=== PATIENT | male | born 1955 | race Caucasian/White ===

== ENCOUNTER → 2020-07-12 14:44 | Outpatient (POV) | payer MEDICARE, BC, SELFPAY | PROVIDERS: Visit Provider Dermatology | DX: Z00.00 Encounter for general adult medical examination without abnormal findings (principal) ==

== ENCOUNTER → 2021-08-07 15:50 | Outpatient (CLI) | payer MEDICARE, OTHER, SELFPAY ==
--- NOTE | 2021-08-07 15:56 | XR_ITS ---
PROCEDURE: XR CERVICAL SPINE 5V CLINICAL INDICATION: Radiculopathy, cervical region COMPARISON: No exams were available for comparison FINDINGS: No fracture or dislocation. No lytic or blastic change. There is normal mineralization. There is degenerative disc disease at C4-C5 C5-C6 and C6-C7. There is 3 mm anterolisthesis of C4 on C5. Mild foraminal narrowing noted on the right at C5-C6 and on the left at C4-C5 C5-C6 and C6-C7. Facet hypertrophic changes are present from C4-C7. No cervical rib. There are small anterior osteophytes the at C4-C5 C6 and C7. Other findings:None. IMPRESSION: Cervical spondylosis as described above with degenerative disc disease and bilateral foraminal narrowing with facet hypertrophic changes Dictated by: Kuldeep Benoit MD 08/07/2021 17:40 Kuldeep Benoit MD in [place] 08/07/2021 17:40
== END ==
PROVIDERS: PCP Family Medicine; Visit Provider Family Medicine
DX: M54.12 Radiculopathy, cervical region (principal)
CPT/HCPCS: 72050

== ENCOUNTER → 2022-05-18 13:28 | Outpatient (CLI) | payer MEDICARE, OTHER, SELFPAY | PROVIDERS: PCP Family Medicine; Visit Provider Family Medicine | DX: U07.1 COVID-19 (principal) | CPT/HCPCS: C9803; U0003; U0005 ==

== ENCOUNTER → 2022-07-17 14:02 | Outpatient (POV) | payer MEDICARE, OTHER, SELFPAY | PROVIDERS: Visit Provider Dermatology | DX: Z00.00 Encounter for general adult medical examination without abnormal findings (principal) ==

== ENCOUNTER 2025-05-14 09:07 | Emergency (ER) | payer MEDICARE, SELFPAY ==
--- OUTSIDE RECORDS SUMMARY | 2024-12-24 05:15 | XMS_ITS ---
Author Organization [facility] Address [address] [place] [id number] Care Team Providers Care Developer [employer] Name Role Phone Elmira Hernandez Primary Care Provider Allergies No Known Allergies Results Component Value [...] 110 Performing Lab: Notes/Report: Test performed by [employer], [facility] , [address], [place] [address] Bruno Milner MD, Clinic Charge Nurse CLIA: [id number] Sodium 134 135-145 mmol/L Potassium 4.6 3.5-5.3 [...] Interpretation:Normal Performing Lab: Notes/Report: Test performed by [employer], [address] , [address], [place] [address] Bruno Milner MD, Clinic Charge Nurse CLIA: [id number] Albumin/Creatinine Ratio, Urine 10 0-30 ug/m g Microalbumin, Urine, Random 1.2 Creatinine, Urine 115.0 Reason For Referral Reason recurring oleconon b ursitis. He would like to see Dr. Reinoso Diagnosis 1 Olecranon bursitis, left (M70.22) [facility] Referring Provider First Name Elmira Aguirre Referring Provider Last Name David Referring Provider Speciality [facility] Referred Provider Sanjuanita Reinoso Referred Provider Specialty Orthopedic S urgery General Notes Anya Driscoll 11:44:12 AM > faxed to [facility] Referral Priority Routine REASON FOR VISIT 6 month check and AWV, Due for Diabetic Eye Exam Medications Medication SIG (Take, Route, Frequency, Duration) Notes Start Date End Date Status Tamsulosin HCl 0.4 mg TAKE ONE CAPSULE B Y MOUTH EVERY DAY AT BEDTIME; Duration: 90 Active Allopurinol 100 MG Take 2 tablets by fl ut once daily; Duration: 90 Active metFORMIN [...] Provider Diagnosis [facility] [address] [facility] [address] [place], [place] [id number] 12/24/2024 Elmira Hernandez Adult general medica l [...] Up: 6 Months, Reason: Provider Name:Elmira Mckeon, 06/24/2025 09:00:00 AM, [address] [facility], [facility] [address] [facility], [address], [place], [place], [id number], Progress Notes * MICHELE BRASHER RENAEDOB:[birth year] (70 yo M)Acc No.[id number]:12/24/2024 Annual Wellness Visit Patient: MICHELE VALDIVIA Provider: Elmira Hernandez M.D. :1955 A ge:69 Y S ex:Male Date:12/24/2024 Address:[address] [place] [address] [address] , [facility]-[id number] Subjective: * Chief Complaints: * 1 . [...] ER for rt knee pain jun.26, [facility]-total right knee replacement 12/04/12. * Family History: [...] bursitis, left - M70.22 1 3. B OR 34.0-34.9,adult - Z68.34 Plan: * Treatment: Value [...] 0439 ANNUAL WELLNESS VST; PPS SUBSQT VST, 10706 GLYCATED HEMOGLOBIN TEST, Modifiers: QW , G0444 ANNUAL DEPRESSION SCREENING 15 MIN, 1090F PRES/ABSN URINE INCON ASSESS, 3288F FALL RISK ASSESSMENT DOCD, 1170F FXNL STATUS ASSESSED, 1159F MED LIST DOCD IN RCRD, 1003F LEVEL OF ACTIVITY ASSESS, 1036F TOBACCO NON-USER, 3017F COLORECTAL CA SCREEN DOC REV, 49598 CBC WITH AUTO DIFF, 1125F AMNT PAIN [...] * Images: Billing Information: * Visit Code: 55198 Office Visit, Est Pt., Level 3. Modifiers: 25 * Procedure Codes: G0439 ANNUAL WELLNESS VST; PPS SUBSQT VST. 34794 GLYCATED HEMOGLOBIN TEST. Modifiers: QW G0444 ANNUAL DEPRESSION SCREENING 15 MIN. 1090F PRES/ABSN URINE INCON ASSESS. 3288F FALL RISK ASSESSMENT DOCD. 1170F FXNL STATUS ASSESSED. 1159F MED LIST DOCD IN RCRD. 1003F LEVEL OF ACTIVITY ASSESS. 1036F TOBACCO NON-USER. 3017F COLORECTAL CA SCREEN DOC REV. 33348 CBC WITH AUTO DIFF. 1125F AMNT PAIN NOTED PAIN PRSNT. G8510 NEG SCR Depression PT NOT ELIG F/U/PLN DOC. 3044F HG A1C LEVEL LT 7.0%. G8752 MOST RECENT SYSTOLIC BP < 140MM HG. G8754 MOST RECENT DIASTOLIC BP < 90MM HG. * Electronic signature of Elmira Hernandez MD on 05/14/2025 at 09:15 AM EDT Sign off status: Pending * Provider: Elmira Hernandez M.D. Date: 0 12/24/2024 Generated for Cynthia crouch/Alejandra/Miah on: 0 05/14/2025 09:15 AM EDT History and Physical Notes * HPI (History [...]
--- OUTSIDE RECORDS SUMMARY | 2025-03-17 06:45 | XMS_ITS ---
Author Organization [facility] Address [address] [place] [id number] Care Team Providers Care Ultrasound Technol Name Role Phone Elmira Hernandez Primary Care Provider Marce Temo Unavailable [phone] Allergies No Known Allergies Results Component Value [...] Allopurinol 100 MG Take 2 tablets by [facility] once daily; Duration: 90 Active Zithromax Z-Raz [...] 03/17/2025 Encounters Encounter Location Date Provider Diagnosis [facility] [address] [place], [place] [id number] 03/17/2025 [facility] [place] Acute URI J06.9 ; Ty pe 2 [...] repo rt progress, Reason: Provider Name:Elmira Mckeon, 06/24/2025 09:00:00 AM, [address] [facility] 36 [facility], [address], [place], [place], [id number], Progress Notes * MICHELE BRASHER TOMDOB:[birth year] (70 yo M)Acc No.[id number]:03/17/2025 Progress Notes Patient: MICHELE VALDIVIA Provider: Juve Zheng M.D. :1955 A ge:70 Y S ex:Male Date:03/17/2025 Address:[address] [place] [address], [facility], [id number] Pcp:Elmira Hernandez Subjective: * Chief Complaints: * [...] ER for rt knee pain 06/2009, [facility]-total right knee replacement 12/04/2012. * Family History: [...] specified complication - E11.69 3 . B [place] 34.0-34.9,adult - Z68.34 Plan: * Treatment: Value [...] G 2211 Complex e/[place], [address] CBC WITH AUTO DIFF, 13795 CAPILLARY BLOOD DRAW, G8752 MOST RECENT SYSTOLIC BP < 140MM HG, G8754 MOST RECENT DIASTOLIC BP < 90MM HG * Follow Up: v ia phone to report progress * Images: Billing Information: * Visit Code: 64940 Office Visit, Est Pt., Level 3. * Procedure Codes: G2211 Complex e/[place]. [address] CBC WITH AUTO DIFF. 18937 CAPILLARY BLOOD DRAW. G8752 MOST RECENT SYSTOLIC BP < 140MM HG. G8754 MOST RECENT DIASTOLIC BP < 90MM HG. * Electronic signature of Jyoti Zheng MD on 05/14/2025 at 09:15 AM EDT Sign off status: Pending * Provider: Juve Zheng M.D. Date: 0 03/17/2025 Generated for Cynthia crouch/Alejandra/Avelinaitting on: 05/14/2025 09:15 AM EDT History and Physical [...]
--- OUTSIDE RECORDS SUMMARY | 2025-04-01 07:30 | XMS_ITS ---
Author Organization [facility] Address [address] [place] [phone] Care Team Providers Care Assignment Editor Name Role Phone Elmira Hernandez Primary Care Provider Marce Temo Unavailable [phone] Allergies No Known Allergies Results Component Value [...] health services once daily; Duration: 90 Active Crestor 10 [...] 04/01/2025 Encounters Encounter Location Date Provider Diagnosis [facility] [address] [place], [place] [phone] 04/01/2025 Temo Zheng Acute rhiniti s J00 [...] Provider Name:Elmira Mckeon, 06/24/2025 09:00:00 AM, [address] [facility] [address], [place], [place], [phone], Progress Notes * MICHELE BRASHERDOB:[birth year] (70 yo M)Acc No.[id number]:04/01/2025 Progress Notes Patient: MICHELE VALDIVIA Provider: Juve Zheng M.D. :1955 A ge:70 Y S ex:Male Date:04/01/2025 Address:[address], [facility] [id number] Pcp:Elmira Hernandez Subjective: * Chief Complaints: * [...] ER for rt knee pain 06/2009, [facility]-total right knee replacement 12/04/2012. * Family History: [...] patient in office. * Procedure Codes: G 2212 Complex e/[place], [address] CAPILLARY BLOOD DRAW, 99234 CBC WITH AUTO DIFF * Follow Up: v ia phone to report progress * Images: Billing Information: * Visit Code: 58951 Office Visit, Est Pt., Level 3. * Procedure Codes: G2211 Complex e/[place]. [address] CAPILLARY BLOOD DRAW. 75416 CBC WITH AUTO DIFF. * Electronic signature of Jyoti Zheng MD on 05/14/2025 at 09:15 AM EDT Sign off status: Pending * Provider: Juve Zheng M.D. Date: 0 04/01/2025 Generated for Cynthia crouch/Alejandra/eTransmitting on: 0 05/14/2025 09:15 AM EDT History [...]
--- OUTSIDE RECORDS SUMMARY | 2025-05-14 09:15 | XMS_ITS ---
Author Organization Unknown [facility] Start Date Provider Encounter for Check-up [id number] [facility]
--- OUTSIDE RECORDS SUMMARY | 2025-05-14 09:15 | XMS_ITS | Patient Health Record ---
Author Organization [facility] Address [address] [place] [id number] Care Team Providers Care Shoe Cutter Name Role Phone Elmira Hernandez Primary Care Provider [phone] Temo Zheng Unavailable [phone] Allergies No Known Allergies Results Component Value [...] - 38 plat 227 100 - 400 CBC Fingerstick (in house) Reviewed date:03/17/2025 12:29:20 [...] - 38 plat 225 100 - 400 P-Microalbumin/Creatinine, R andom Urine Sample Reviewed date:12/28/2024 02:15:19 PM Interpretation:Normal Performing Lab: Notes/Report: Test performed by [facility] [address] [place] [address] , [address], [place] [address] Bruno Milner MD, Financial Administrative Assistant CLIA: [id number] Albumin/Creatinine Ratio, Urine 10 0-30 ug/m g Microalbumin, Urine, Random 1.2 Creatinine, Urine 115.0 P-Comprehensive Metabolic Pa poly (CMP) Reviewed date:12/28/2024 02:15:19 PM Interpretation:Na 134, cl 96, gluc 110 Performing Lab: Notes/Report: Test performed by [facility] [address] [place] [address] , [address], [place] [address] Bruno Milner MD, Financial Administrative Assistant CLIA: [id number] Sodium 134 135-145 mmol/L Potassium 4.6 3.5-5.3 [...] 0.4 <0.2-1.2 mg/dL A/G Ratio 1.4 1.1-2.5 Glycohemoglobin A1c (in hous e) Reviewed date:12/28/2024 02:15:20 PM Interpretation:6.0% Performing Lab: Notes/Report: 6.0% glycohemoglobin 6.0% 5 - 6.5 % P-Uric Acid Reviewed date:06/25/2024 08:27:03 AM Interpretation:Normal Performing Lab: Notes/Report: Test performed by [facility] [address] [place] [address] , [address], [place] [address] Bruno Milner MD, Financial Administrative Assistant CLIA: [id number] Uric Acid 5.1 3.4-8.0 mg/dL P-PSA Reviewed date:06/25/2024 08:27:02 AM Interpretation:Normal Performing Lab: Notes/Report: Test performed by [facility] [address] [place] [address] Bruno Milner MD, Financial Administrative Assistant CLIA: [id number] PSA 0.28 <4.00 ng/mL Please note this is an ultrasensitive PSA assay with a lower limit of detection of 0.014 ng/mL. This test is performed by the [employer] ECLIA methodology. Values obtained with different assay methods or kits cannot be directly compared. P-Lipid Panel Reviewed date:06/25/2024 08:27:02 AM Interpretation:trigs 236 Performing Lab: Notes/Report: Test performed by [facility] [address] [place] [address], [place] [address] Bruno Milner MD, Financial Administrative Assistant CLIA: [id number] Cholesterol 159 <200 mg/dL Triglycerides 236 <150 [...] Results: 70 Units: mg/dL % Change: -6% P-Comprehensive Metabolic Pa poly (CMP) Reviewed date:06/25/2024 08:27:02 AM Interpretation:Na 134, gluc 125 Performing Lab: Notes/Report: Test performed by [employer], [address] , [address] , [place] [address] Bruno Milner MD, Financial Administrative Assistant CLIA: [id number] Sodium 134 135-145 mmol/L Potassium 4.4 3.5-5.3 [...] <0.2-1.2 mg/dL A/G Ratio 1.4 1.1-2.5 mg/dL Glycohemoglobin A1c (in hous e) Reviewed date:06/25/2024 08:27:03 AM Interpretation:5.8% Performing Lab: Notes/Report: 5.8% glycohemoglobin 5.8% 5 - 6.5 % CBC Fingerstick (in house) Reviewed date:04/01/2025 12:25:18 [...] - 38 plat 263 100 - 400 Medications Medication SIG (Take, Route, Frequency, Duration) Notes Start Date End Date Status Loratadine 10 MG 1 tablet Orally Once a day; Duration: 30 day(s) 04/01/2025 Active Fluticasone Propionate 50 MCG/ACT 1 spray in each nostril Nasally once daily 04/01/2025 Active Esomeprazole Magnesium 40 MG 1 cap(s) orally once a day A ctive Cymbalta 60 MG 1 cap(s) orally once a day Active Tamsulosin HCl 0.4 mg TAKE ONE CAPSULE B Y MOUTH EVERY DAY AT BEDTIME; Duration: 90 Active Viagra 100 MG 1 tab(s) orally [...] by mouth once daily; Duration: 90 Active Allopurinol 100 MG 2 tab(s) orally once daily Active metFORMIN HCl 500 MG 1 tab(s) Orally Two times a day Active HYDROcodone-Acetaminophen 10-325 MG 1 tab(s) orally every 6 hours prn; Duration: 30 day(s) 05/07/2025 Active Allopurinol 100 MG Take 2 tablets by [facility] once daily; Duration: 90 Active Crestor 10 [...] tab(s) orally Two times a day Active Diclofenac Sodium 1 % as directed applie d topically Twice a day prn 08/07/2021 Active Rybelsus 3 MG 1 tab(s) Orally once daily Active metFORMIN HCl 500 MG 1 tab(s) Orally Two times a day; Duration: 90 days Active Immunizations Vaccine Route Administration Date Status Comme nts COVID 19 Moderna Unknown 01/18/2021 Administered COVID 19 Moderna Unknown 02/15/2021 Administered COVID 19 Moderna Unknown 10/17/2021 Administered Fluzone High Dose (65yr and older) Unknown 08/07/2021 Administered Fluzone Quad (6months&older) IM Intramuscular 09/23/2018 Administered Fluzone Quad (6months&older) IM Intramuscular 09/06/2020 Administered Fluzone Quad-Medicare (6months&older) IM Intramuscular 10/23/2017 Administered Hepatitis A (adult) Unknown 12/10/2019 Administered PNEUMOVAX 23 VACCINE IM Intramuscular 01/10/2018 Administe red Prevnar (PCV13) IM Intramuscular 12/26/2021 Administered Shingrix Unknown 12/10/2019 Administered Tetanus Tdap-Adacel (over 7yrs) IM Intramuscular 01/10/2018 Administered Problems Problem Type SNOMED Code ICD Code Onset Dates Problem Status W/U Status Risk Notes Problem Gastroesophageal reflux disease (087368560) GERD (gastroesophageal reflux disease) (K21.9) Active confirmed Problem Essential hypertension (42340388) Essential (primary) hypertension (I10) Active confirmed Problem Essential hypertension (24479490) Essential hypertension (I10) Active confirmed Problem Screening for malignant neoplasm of prostate (970433536) Prostate cancer screening (Z12.5) Active confirmed Problem Hyperuricemia (32781090) Hyperuricemia (E79.0) Active confirmed Problem Cervicalgia (00602353) Cervicalgia (M54.2) Active confirmed Problem Male erectile disorder (736288580) Male erectile disorder (F52.21) Active confirmed Problem Benign prostatic hyperplasia (873051208) BPH (benign prostatic hyperplasia) (N40.0) Active confirmed Problem Type 2 diabetes mellitus with other specified complication (E11.69) Active confirmed Problem Hyperlipidemia (17011291) Hyperlipidemia, unspecified (E78.5) Active confirmed Problem Chronic pain syndrome (169518601) Chronic pain syndrome (G89.4) Active confirmed Problem Depression (216861126) Depression (F32.9) Active confirmed Problem Obese class II (096275206387235) BMI 36.0-36.9,adult (Z68.36) Active confirmed Problem Primary osteoarthritis (972405748) Primary osteoarthritis (M19.91) Active confirmed Problem Body mass index 30.00 to 34.99 (796395198368571) BMI 34.0-34.9,adult (Z68.34) Active confirmed Problem Dyslipidemia (704045751) Dyslipidemia (E78.5) Active confirmed Problem Type II diabetes mellitus without complication (156732460) Type 2 diabetes mellitus without complication, without long-term current use of insulin (E11.9) Active confirmed Vital Signs Heart Rate 87 /min 04/01/2025 Blood pressure diastolic 90 mm Hg 04/01/2025 Height 72 in 04/01/2025 Blood pressure systolic 130 mm Hg 04/01/2025 Weight 249.4 lbs 04/01/2025 BMI 33.82 kg/m2 04/01/2025 Encounters Encounter Location Date Provider Diagnosis [facility] [address] [id number] 06/23/2024 Elmira Hernandez Hyperuricemia E79.0 ; Type 2 diabetes mellitus without complication, without long-term current use of insulin E11.9 ; Chronic pain syndrome G89.4 ; Depression F32.9 ; Dyslipidemia E78.5 ; Essential hypertension I10 ; GERD (gastroesophageal reflux disease) K21.9 ; Cervicalgia M54.2 ; Prostate cancer screening Z12.5 ; Skin cancer screening Z12.83 and BPH (benign prostatic hyperplasia) N40.0 [facility] [address] [place] [id number] 10/27/2024 R Timothy Hernandez Olecranon bursitis o f left elbow M70.22 ; Cervicalgia M54.2 and Vasovagal syncope R55 [facility] [address] [facility] [address] [place], [place] [id number] 12/10/2024 R Timothy David Olecranon bursitis o f left elbow M70.22 [facility] [address] [facility] [address] [place], [place] [id number] 12/24/2024 R Timothy David Adult general medica l examination Z00.00 ; [...] bursitis, left M70.22 and BMI 34.0-34.9,adult Z68.34 [facility] [address] [place], [place] [id number] 03/17/2025 [place] Acute URI J06.9 ; Ty pe 2 diabetes mellitus with other specified complication E11.69 and BMI 34.0-34.9,adult Z68.34 [facility] [address] [facility] [address] [place], [place] [id number] 04/01/2025 [place]o [place] Acute rhinitis J00 [facility] [address] [facility] [address] [place], [place] [id number] 05/27/2024 R Timothy David Chronic pain syndrom e G89.4 [facility] [address] [facility] [address] [place], [place] [id number] 06/25/2024 R Timothy David [facility] [address] [facility] [address] [place], [place] [id number] 06/29/2024 R Timothy David Chronic pain syndrom e G89.4 [facility] [address] [facility] [address] [place], [place] [id number] 07/02/2024 R Timothy David [facility] [address] [place], [place] [id number] 07/30/2024 R Timothy David Chronic pain syndrom e G89.4 [facility] [address] [place], [place] [id number] 08/31/2024 R Timothy David Chronic pain syndrom e G89.4 [facility] [address] [place], [place] [id number] 10/01/2024 R Timothy David Chronic pain syndrom e G89.4 [facility] [address] [place], [place] [id number] 11/02/2024 R Timothy David Chronic pain syndrom e G89.4 [facility] [address] [place], [place] [id number] 12/01/2024 R Timothy David Type 2 diabetes mellitus without complication, without long-term current use of insulin E11.9 [facility] [address] [place], [place] [id number] 12/03/2024 R Timothy David Chronic pain syndrom e G89.4 [facility] [address] [place], [place] [id number] 12/28/2024 R Timothy David [facility] [address] [place], [place] [id number] 01/04/2025 [place] Chronic pain syndrom e G89.4 [facility] [address] [place], [place] [id number] 02/01/2025 R Timothy David Chronic pain syndrom e G89.4 [facility] [address] [place], [place] [id number] 03/08/2025 R Timothy David Chronic pain syndrom e G89.4 [facility] [address] [place], [place] [id number] 04/07/2025 R Timothy David Chronic pain syndrom e G89.4 [facility] [address] [place], [place] [id number] 05/07/2025 Elmira Hernandez Chronic pain syndrom e G89.4 Assessments Encounter Date Diagnosis (ICD Code) Assessment Notes Treatment Notes Treatment Clinical Notes Section Notes 05/27/2024 Chronic pain syndrome (ICD-10 - G89.4) 06/23/2024 Hyperuricemia (ICD-10 - E79.0) 06/29/2024 Chronic pain syndrome (ICD-10 - G89.4) 07/30/2024 Chronic pain syndrome (ICD-10 - G89.4) 08/31/2024 Chronic pain syndrome (ICD-10 - G89.4) 10/01/2024 Chronic pain syndrome (ICD-10 - G89.4) 10/27/2024 Cervicalgia (ICD-10 - M54.2) 10/27/2024 Olecranon bursitis of left elbow (ICD-10 [...] for the next 5 to 7 days. 11/02/2024 Chronic pain syndrome (ICD-10 - G89.4) 12/01/2024 Type 2 diabetes mellitus without complication, without long-term current use of insulin (ICD-10 - E11.9) 12/03/2024 Chronic pain syndrome (ICD-10 - G89.4) 12/10/2024 Olecranon bursitis of left elbow (ICD-10 [...] and apply ice 3-4 times per day. 12/24/2024 Dyslipidemia (ICD-10 - E78.5) 12/24/2024 Adult general medical examination (ICD-10 - Z00.00) Patient instructed to return to office Annually for Annual Wellness Visits to include annual screenings of Pain assessment, Functional Ability assessment, Cognitive Ability assessment, Fall Risk assessment, Depression screening and Bladder control screening. 01/04/2025 Chronic pain syndrome (ICD-10 - G89.4) 02/01/2025 Chronic pain syndrome (ICD-10 - G89.4) 03/08/2025 Chronic pain syndrome (ICD-10 - G89.4) 03/17/2025 Type 2 diabetes mellitus with other specified complication (ICD-10 - E11.69) 03/17/2025 Acute URI (ICD-10 - J06.9) 04/01/2025 Acute rhinitis (ICD-10 - J00) 04/07/2025 Chronic pain syndrome (ICD-10 - G89.4) 05/07/2025 Chronic pain syndrome (ICD-10 - G89.4) 03/17/2025 BMI 34.0-34.9,adult (ICD-10 - Z68.34) 12/24/2024 Essential hypertension (ICD-10 - I10) 06/23/2024 Type 2 diabetes mellitus without complication, without long-term current use of insulin (ICD-10 - E11.9) Reinforced diet and weight loss 10/27/2024 Vasovagal syncope (ICD-10 - R55) Following the office procedure, he had a brief syncopal episode and became clammy. He was eventually moved and reclined on the exam table for period of time with application of cool rags. His was called to drive him home. 06/23/2024 Chronic pain syndrome (ICD-10 - G89.4) 06/23/2024 Depression (ICD-10 - F32.9) 12/24/2024 Type 2 diabetes mellitus without complication, without long-term current use of insulin (ICD-10 - E11.9) Reinforced diet and weight loss 12/24/2024 Hyperuricemia (ICD-10 - E79.0) 06/23/2024 Dyslipidemia (ICD-10 - E78.5) 06/23/2024 Essential hypertension (ICD-10 - I10) 12/24/2024 Cervicalgia (ICD-10 - M54.2) 12/24/2024 Chronic pain syndrome (ICD-10 - G89.4) 06/23/2024 GERD (gastroesophageal reflux disease) (ICD-10 - K21.9) 06/23/2024 Cervicalgia (ICD-10 - M54.2) 12/24/2024 Depression (ICD-10 - F32.9) 06/23/2024 Prostate cancer screening (ICD-10 - Z12.5) 12/24/2024 GERD (gastroesophageal reflux disease) (ICD-10 - K21.9) 06/23/2024 Skin cancer screening (ICD-10 - Z12.83) 12/24/2024 BPH (benign prostatic hyperplasia) (ICD-10 - N40.0) 12/24/2024 Nausea (ICD-10 - R11.0) Nausea is likely related to the semaglutide that he started taking. Advised to discontinue this medication until his symptoms are resolved. 06/23/2024 BPH (benign prostatic hyperplasia) (ICD-10 - N40.0) 12/24/2024 Olecranon bursitis, left (ICD-10 - M70.22) 12/24/2024 BMI 34.0-34.9,adult (ICD-10 - Z68.34) Plan Of Treatment Next Appt Details Provider Name:Elmira Mckeon, 06/24/2025 09:00:00 AM, [address], [place], [place], [id number], Insurance Providers Payer Name Payer Address Payer Phone Subscriber Number Group Number Insured Name Patient Relationship to Insured Coverage Start Date Coverage End Date MEDICARE PART B [address] [address] [place] [id number] MICHELE BRASHER Self - patient is the insured [facility] [employer] [address] [place] [address] [phone] [id number] MICHELE BRASHER Self - patient is the insured Medications Administered Medication Instructions Date of Administration Dosage Notes Dexamethasone 01/11/2006 1 mL Medical (General) History Medical History History ICD Code Depression Esophageal Rreflux Hyperlipidemia Gout E.D Diverticulosis by colonoscopy 08/22; 201 4 Hypertension Surgical History Surgery Date(Month/Year) RT Knee x 3 Throat Polyps Removed nasal surgery colonoscopy 2004 total right knee replacement 12/04/2012 Colonoscopy/ sigmoid diverticulosis.one polyp/ Dr. Nick 01/2014 C-scope/ Joseph/ polyps x 2 01/2019 Hospitalization History Reason Date(Month/Year) [facility]-total right knee replace ment 12/04/2012 [facility] ER for rt knee pain 06/2009
--- NOTE | 2025-05-14 09:17 | CT_ITS ---
FINAL REPORT TECHNIQUE: Thin section axial CT with sagittal reconstruction without contrast This study was performed with techniques to keep radiation doses as low as reasonably achievable, (ALARA). Individualized dose reduction techniques using automated exposure control or adjustment of mA and/or kV according to the patient''s size were employed. CLINICAL HISTORY: syncoper trauma vague neck pain COMPARISON: None FINDINGS: There is moderate diffuse degenerative disc disease and spondylosis. Advanced facet arthropathy is noted. Multilevel bony neural foraminal narrowing is present with mild central canal stenosis. There is no evidence of fracture. IMPRESSION: No acute findings. Advanced degenerative changes resulting in multilevel canal stenosis and neural foraminal narrowing. Reviewed, Interpreted and Dictated by Arie Ch MD Transcribed by Jenae Shen Authenticated and . [facility]
--- NOTE | 2025-05-14 09:17 | XR_ITS ---
FINAL REPORT CLINICAL HISTORY: fall, volar pain COMPARISON: None FINDINGS: RIGHT WRIST THREE VIEW FINDINGS: Three views show no evidence of an acute, displaced fracture or dislocation of the visualized bony architecture. The joint spaces appear normal. IMPRESSION: Unremarkable exam. Reviewed, Interpreted and Dictated by Arie Ch MD Transcribed by China Newman Authenticated and [facility]
--- NOTE | 2025-05-14 09:17 | XR_ITS ---
FINAL REPORT TECHNIQUE: Right elbow 3 views CLINICAL HISTORY: fall COMPARISON: None FINDINGS: RIGHT ELBOW: 3 images of the right elbow were obtained. There is irregularity of the coronoid process, considered to be degenerative. No definite fracture is identified. The joint spaces are intact. There is no soft tissue abnormality identified. IMPRESSION: No acute bony abnormality. Reviewed, Interpreted and Dictated by Arie Ch MD Transcribed by China Newman Authenticated and [facility]
--- NOTE | 2025-05-14 09:17 | XR_ITS ---
FINAL REPORT TECHNIQUE: Left elbow 3 views CLINICAL HISTORY: fall COMPARISON: None FINDINGS: LEFT ELBOW: 3 images of the left elbow were obtained. There is a radial neck fracture without displacement. No subluxation or dislocation is identified. Mild degenerative change is noted. There is no soft tissue abnormality identified. IMPRESSION: Nondisplaced left radial neck fracture. Reviewed, Interpreted and Dictated by Arie Ch MD Transcribed by China Newman Authenticated and [facility]
--- NOTE | 2025-05-14 09:17 | XR_ITS ---
FINAL REPORT CLINICAL HISTORY: syncope COMPARISON: None FINDINGS: SINGLE VIEW CHEST: No acute pulmonary opacity is present. There is no evidence of effusion or pneumothorax. Mediastinum is unremarkable. Heart size is normal. IMPRESSION: No acute abnormality. Reviewed, Interpreted and Dictated by Arie Ch MD Transcribed by China Newman Authenticated and . [facility]
--- NOTE | 2025-05-14 09:17 | CT_ITS ---
FINAL REPORT TECHNIQUE: Noncontrast exam This study was performed with techniques to keep radiation doses as low as reasonably achievable, (ALARA). Individualized dose reduction techniques using automated exposure control or adjustment of mA and/or kV according to the patient's size were employed. CLINICAL HISTORY: syncope hit head anterior then posterior COMPARISON: None FINDINGS: CT HEAD: No abnormal density is seen. Ventricles are normal. There is no hemorrhage. No mass effect is seen. Note is made of right maxillary sinusitis. Bone windows show no evidence of fracture. IMPRESSION: 1. No acute intracranial findings. 2. Right maxillary sinusitis. Reviewed, Interpreted and Dictated by Arie Ch MD Transcribed by China Newman Authenticated and [facility]
[2025-05-14 09:18] VITALS: BP 144/103; PULSE 87; RESP 19; TEMP 37.1; O2SAT 98; BMI 32.5
--- NOTE | 2025-05-14 09:20 | HMH.EDGENADL ---
Discharge Plan Disposition Patient Disposition: Home, Self-Care Prescriptions Prescriptions: New hydrocodone-acetaminophen 5-325 mg tablet 1 tab PO BID PRN (Reason: pain (scale score 7-10)) Qty: 10 0RF Rx Instructions: Please take after 800 mg of ibuprofen as needed has not been successful in reducing her pain to an acceptable level. It is okay to combine with your other opiate prescription however spaced the doses out throughout the day. If you have more than 1 pre-existing opiate prescription do not take this medicine on top of it. No Action Clenpiq 10 mg-3.5 gram- 12 gram/175 mL solution 175 ml PO DAILY Qty: 350 0RF Rx Instructions: take first dose at 5-9PM evening before colonoscopy; 2nd dose the next day approximately 5 hrs before colonoscopy metformin 1,000 mg Tablet 1,000 mg PO DAILY lansoprazole [Prevacid] 15 MG capsule,delayed release(DR/EC) 1 tab PO DAILY aspirin 81 MG tablet,chewable 81 mg PO DAILY metaxalone [Skelaxin] 800 MG tablet 1 tab PO DAILY rosuvastatin [Crestor] 5 MG tablet 1 tab PO DAILY Referrals Follow up/Referrals: Doug Reveles DO [Staff Physician, Orthopedics] - See instructions Rios Hernandez MD [Primary Care Provider, Medical] - See instructions Activity Restrictions/Add. Instructions Additional Instructions/Restrictions: At this time it was felt you are safe to be discharged home. If new or worsening symptoms please do not hesitate to return the emergency department. Please wear your sling as much as you are able and take your pain medicines only after Tylenol and ibuprofen have failed. Please call schedule appoint with Dr. Reveles for late next week and follow-up with your family doctor as needed Clinical Impressions Clinical Impression: Closed fracture of neck of left radius, Fall, Neck pain, Syncope, vasovagal Print Language Print Language: Belarusian Discharge ED Provider: Lincoln Jarrett General Adult HPI General Chief complaint: Fall Stated complaint: [id number] Pain and swelling L elbow Time Seen by Provider: 05/14/25 09:09 History of Present Illness HPI narrative: Patient is 70-year-old male with past medical history of diabetes who presents emergency department for evaluation of syncope. Patient was visiting a patient in the hospital when he was on his way down to get breakfast when after coming out of an elevator he felt his right leg tripped on his left leg causing him to fall forward and strike his left elbow with significant pain. He then stood up felt lightheaded and passed out striking his head. No anticoagulants. He is currently complaining of vague neck pain, no headache no chest pain reported no abdominal pain reported. There is left elbow pain, right elbow pain, right wrist pain. No other acute complaints at this time. Please note that above description of symptoms, in this electronic medical record under categorization of recalled from ER triage doctor by RN are reflective of an initial nursing assessment, however, is not reflective of my full history and physical exam that was personally taken and clarified. Consequentially, this preceding description of symptoms, which may include the patient's categorized chief complaint in the EMR, do not reflect my personal clinical impression, and the ultimate description of history of present illness and patient stated complaints should be deferred to this section of the note. Unless stated otherwise or congruent with this section of the note, additional signs, symptoms, or incongruence should be interpreted as inaccurate with my clinical impression. Related Data Home Medications ?Medication ?Instructions ?Recorded ?Confirmed aspirin 81 mg chewable tablet 81 mg PO DAILY Blood thinner 02/06/19 04/23/24 lansoprazole 15 mg capsule,delayed 1 tab PO DAILY stomach 02/06/19 04/22/24 release (Prevacid) metaxalone 800 mg tablet (Skelaxin) 1 tab PO DAILY muscle relaxer 02/06/19 04/22/24 rosuvastatin 5 mg tablet (Crestor) 1 tab PO DAILY Cholesterol 02/06/19 04/22/24 metformin 1,000 mg tablet 1,000 mg PO DAILY 04/22/24 04/22/24 Previous Rx's ?Medication ?Instructions ?Recorded sod picosulf 10 mg-magnes 3.5 175 ml PO DAILY bowel prep 2 doses 04/20/24 gram-citric 12 gram/175 mL oral #350 mL solution (Clenpiq) hydrocodone 5 mg-acetaminophen 325 1 tab PO BID PRN pain (scale score 05/14/25 mg tablet 7-10) #10 tabs Allergies Allergy/AdvReac Type Severity Reaction Status Date / Time No Known Allergies Allergy Verified 04/23/24 09:11 [facility] Disclaimer: The information contained in this section may have been updated after the patient was seen, as this information can be updated by other users. Medical History (Updated 05/14/25 @ 11:56 by Lincoln Jarrett MD) History of COVID-19 Gout Osteoarthritis History of gastroesophageal reflux (GERD) Diabetes mellitus, type 2 Hypertension Surgical History History of colonoscopy History of knee replacement Family History Other Family history of cancer Family history of diabetes mellitus type II Social History (Updated 04/23/24 @ 09:37 by Jeni Kaminski CRNA) Smoking Status: Former smoker alcohol intake: current substance use type: denies use current occupational status: retired Travel in the last 8 weeks?: None caffeine: Yes Have you lived/traveled outside US in past 30 days?: No Contact w/someone who lives/traveled outside US past 30 days?: No Exposure to someone with infectious disease in past 14 days?: No Do you have a fever (greater than 100.4 F or 38 C)?: No Have you tested positive for COVID-19?: No Exposed to someone with COVID-19 in past 14 days?: No Do you have a sore throat?: No Do you have a cough?: No Do you have any weakness?: No Do you have any diarrhea?: No Are you experiencing any unusual bleeding?: No Do you have any muscle aches/pain?: No Do you have any abdominal pain?: No Are you experiencing loss of taste or smell?: No ROS Obtained: Yes Systems reviewed as appropriate & no additional complaints except as documented Physical Exam General General appearance: alert and in no apparent distress Head Head exam: atraumatic and normocephalic Eye Eye exam: Present PERRL and EOMI ENT ENT exam: Present mucous membranes moist Neck Neck exam: Present normal inspection Chest Chest inspection: Present normal inspection and symmetric chest wall rise Respiratory Respiratory exam: Present normal lung sounds bilaterally; Absent respiratory distress Cardiovascular Cardiovascular exam: Present regular rate and normal rhythm Abdominal Exam Abdominal exam: Present soft; Absent tenderness Extremities Exam Extremities exam: Present tenderness (Tenderness at the left elbow with limited range of motion secondary to pain. Palpable radial pulse on the left.) and other (Bruising over the right volar wrist, palpable radial pulse on the right. No tenderness over the right upper extremity or bilateral lower extremities. 5 out of 5 strength right upper extremity bilateral lower extremities.) Neurological Exam Neurological exam: Present alert Psychiatric Psychiatric exam: Present normal affect Skin Skin exam: Present warm and dry Medical Decision Making Medical Records Screening: Per USPSTF and CDC recommendations, given the prevalence of disease in our region, it is our hospital?s policy to screen for HIV and viral Hepatitis for all patients aged 18 and over and those with ongoing risk factors. Manuel Inquiry Pt receiving controlled substance: No Vital Signs: 05/14/25 09:18 05/14/25 09:40 05/14/25 09:52 Temperature 98.8 F Temperature Source Oral Pulse Rate 97 H 80 Pulse Rate [Left] 87 Respiratory Rate 19 16 15 Blood Pressure 129/90 Blood Pressure [Right Arm] 144/103 H Blood Pressure Mean [Right Arm] 116 Blood Pressure Source [Right Arm] Automatic Cuff 02 Sat by Pulse Oximetry 98 98 97 Oxygen Delivery Method Room Air Room Air Room Air 05/14/25 10:31 05/14/25 11:02 Temperature Temperature Source Pulse Rate 76 84 Pulse Rate [Left] Respiratory Rate 16 23 Blood Pressure 158/99 H 157/108 H Blood Pressure [Right Arm] Blood Pressure Mean [Right Arm] Blood Pressure Source [Right Arm] 02 Sat by Pulse Oximetry 95 95 Oxygen Delivery Method Room Air Room Air Lab Data Lab Results 05/14/25 09:49: WBC 9.1, RBC 4.65, Hgb 13.7 L, Hct 41.5 L, MCV 89.2, MCH 29.5, MCHC 33.0, RDW 13.7, Plt Count 234, MPV 10.7 H, Neut % (Auto) 66.1, Lymph % (Auto) 18.8, [place] % (Auto) 9.1, Eos % (Auto) 5.5, Baso % (Auto) 0.4, Neut # (Auto) 6.0, Lymph # (Auto) 1.7, [place] # (Auto) 0.8, Eos # (Auto) 0.5 H, Baso # (Auto) 0.0, Sodium 133 L, Potassium 4.4, Chloride 99, Carbon Dioxide 26, Anion Gap 12.4, BUN 12, Creatinine 0.90, Estimated Creat Clear 110, Estimated GFR 84, Est GFR ( Amer) 101, Glucose 137 H, Calcium 9.5, Magnesium 2.0, Total Bilirubin 0.7, AST 38, ALT 29, Alkaline Phosphatase 57, Total Protein 7.8, Albumin 4.3, Globulin 3.5 H, Albumin/Globulin Ratio 1.2 05/14/25 09:49 05/14/25 09:49 Orders (Tests/Meds): ED MEDICATIONS Discontinued Medications Generic Name Dose Route Start Last Admin Trade Name Chante PRN Reason Stop Dose Admin Acetaminophen 1,000 mg 05/14/25 09:19 05/14/25 09:34 Acetaminophen 500mg Tab PO 05/14/25 09:20 1,000 mg ONCE ONE Administration Lidocaine 1 each 05/14/25 09:19 05/14/25 09:32 Lidocaine 5% Transdermal Patch TD 05/14/25 09:20 1 each ONCE ONE Administration Oxycodone HCl 5 mg 05/14/25 11:04 05/14/25 11:14 Oxycodone 5mg Immediate Release Tablet PO 05/14/25 11:05 5 mg ONCE ONE Administration ORDERS Category Date Time Status CT cervical spine wo con Stat Cat Scan 05/14/25 09:[address] head/brain wo con Stat Cat Scan 05/14/25 09:17 Completed CXR --portable [XR chest portable] Stat Exams 05/14/25 09:17 Completed Elbow XR left mininum 3 views [XR elbow LT min 3V] Stat Exams 05/14/25 09:17 Completed Elbow XR right minimum 3 views [XR elbow RT min 3V] Exams 05/14/25 09:17 Completed Stat Wrist XR right minimum 3 views [XR wrist RT min 3V] Exams 05/14/25 09:17 Completed Stat CBC w/Auto Diff [Complete Blood Count Auto Diff] Stat Lab 05/14/25 09:49 Completed CMP [Comprehensive Metabolic Panel] Stat Lab 05/14/25 09:49 Completed MG [Magnesium] Stat Lab 05/14/25 09:49 Completed POC Glucose,Bedside Stat Lab 05/14/25 09:32 Ordered EKG Request [ECG Request] Stat Y 05/14/25 09:17 Ordered ECG Data Tracing #1: Independently inter by me rate of 78, rhythm is regular, axis is normal, no ST elevation in anatomical contiguous leads, QTc 423. Medical Decision Narrative: In summary patient is 70-year-old male past medical history described above who presents emergency department for evaluation of traumatic injury sustained in a fall as well as syncope. Patient is hemodynamically stable nontoxic-appearing upon arrival, afebrile. Based on history trauma survey will be conducted with plain film of the left elbow right wrist right elbow noncontrasted CT scan of the head and CT of the cervical spine. I suspect that patient had a mechanical fall with resultant pain over his left elbow and rapid standing from a seated position caused him to have vasovagal syncope striking his head. Other causes of syncope will be screened for with chest x-ray, hematologic labs, EKG. Initial inventions include Tylenol, lidocaine patch. Workup reviewed by me, hematologic labs are nonactionable no significant leukocytosis no transfusable anemia no BENNIE or critical electrolyte abnormality. X-rays informally interpreted by me, there appears to be a fracture of the left proximal radius. No obvious fracture otherwise. Formal read shows nondisplaced left radial neck fracture. Noncontrasted CT scan of the head no acute intracranial abnormality. CT cervical spine no acute pathology, chronic findings. Given this patient is appropriate for discharge at this time will follow-up with Dr. Reveles on an outpatient basis. Critical Care Critical Care Time Critical Care Time: No
[2025-05-14] MEDS: LIDOCAINE 5% TRANSDERMAL PATCH 1 EACH TD (09:32)
[2025-05-14] MEDS: ACETAMINOPHEN 500MG TAB 1000 MG PO (09:34)
[2025-05-14 09:40] VITALS: PULSE 97; RESP 16; O2SAT 98
[2025-05-14 09:52] VITALS: BP 129/90; PULSE 80; RESP 15; O2SAT 97
[2025-05-14 09:56] LABS: Basophils % 0.4 % (0.1-2.0); Eosinophils # 0.5 Kmm3 (0.0-0.4); Eosinophils % 5.5 % (0.1-12.0); Hematocrit 41.5 % (42.0-52.0); Hemoglobin 13.7 g/dL (14.1-18.0); Immature Granulocytes # 0.01 10^3uL; Immature Granulocytes % 0.1 %; Lymphocytes # 1.7 K/mm3 (0.7-4.5); Lymphocytes % 18.8 % (10-50); Mean Corpuscular Hemoglobin 29.5 pg (27.0-31.2); Mean Corpuscular Volume 89.2 fl (80-94); Mean Platelet Volume 10.7 fl (7.4-10.4); Monocytes # 0.8 K/mm3 (0.1-1.0); Monocytes % 9.1 % (1.7-9.3); Neutrophils % 66.1 % (37.0-80.0); Nucleated Red Blood Cells # 0 10^3/uL; Nucleated Red Blood Cells % 0 %; Platelet Count 234 K/mm3 (142-424); Red Blood Count 4.65 M/mm3 (4.60-6.20); Red Cell Distribution Width 13.7 % (11.5-17.5); Red Cell Distribution Width-SD 44.7 fL; White Blood Count 9.1 K/mm3 (4.8-10.8)
--- NOTE | 2025-05-14 10:05 | PC.NURSE ---
RAD at bedside for portable xrays at this time
[2025-05-14 10:09] LABS: Alanine Aminotransferase 29 U/L (12-78); Albumin Level 4.3 g/dl (3.5-5.0); Albumin/Globulin Ratio 1.2 (1.1-1.8); Alkaline Phosphatase 57 U/L (38-126); Anion Gap 12.4 mEq/L (5-15); Aspartate Amino Transferase 38 U/L (17-59); Bilirubin,Total 0.7 mg/dl (0.2-1.3); Blood Urea Nitrogen 12 mg/dl (9-20); Calcium 9.5 mg/dl (8.4-10.2); Carbon Dioxide 26 mmol/L (22.0-30.0); Chloride 99 mmol/L (98-107); Creatinine Clearance Estimated 110 mL/min (50-200); Estimated Glomerular Filt Rate 84 ml/min (>60); GFR (African American) 101 ML/MIN (>60); Globulin 3.5 g/dL (1.3-3.2); Glucose 137 mg/dl (74-100); Potassium 4.4 mmoL/L (3.5-5.1); Sodium 133 mmol/L (136-145); Total Protein,Serum 7.8 g/dl (6.3-8.2)
[2025-05-14 10:31] VITALS: BP 158/99; PULSE 76; RESP 16; O2SAT 95
[2025-05-14 11:02] VITALS: BP 157/108; PULSE 84; RESP 23; O2SAT 95
[2025-05-14] MEDS: OXYCODONE 5MG IMMEDIATE RELEASE TABLET 5 MG PO (11:14)
--- NOTE | 2025-05-14 11:19 | PC.NURSE ---
Sling applied to left arm, patient tolerated well. Verbalizes understanding of use.
[2025-05-14 11:56] VITALS: BP 153/90; PULSE 89; RESP 19; TEMP 37.1; O2SAT 98
== END 2025-05-14 12:02 | disposition home or self-care (01) ==
PROVIDERS: Emergency Provider Emergency Medicine; PCP Family Medicine
DX: S52.132A Displaced fracture of neck of left radius, initial encounter for closed fracture (principal); M54.2 Cervicalgia; R55 Syncope and collapse; W20.8XXA Other cause of strike by thrown, projected or falling object, initial encounter; S52.125A Nondisplaced fracture of head of left radius, initial encounter for closed fracture; F17.210 Nicotine dependence, cigarettes, uncomplicated
CPT/HCPCS: 70450; 71045; 72125; 73080; 73110; 80053; 83735; 85025; 99283; 99285

== ENCOUNTER 2025-05-14 14:51 | Emergency (ER) | payer MEDICARE, SELFPAY ==
--- NOTE | 2025-05-14 09:49 | ECG_ITS ---
APPROVED REPORT Exam: Resting ECG HR:78 bpm ECG Measurements Heart Rate 78 AXES LA 169 P 47 QRSd 83 QRS 54 QT 390 T 70 QTc 423 Conclusion Sinus rhythm Electronically signed by : JANET ENGLISH, 05/14/2025 22:55:04
[2025-05-14 15:03] VITALS: BP 138/78; PULSE 58; RESP 16; TEMP 36.6; O2SAT 96; BMI 33.0
--- NOTE | 2025-05-14 15:08 | ECG_ITS ---
APPROVED REPORT Exam: Resting ECG HR:72 bpm ECG Measurements Heart Rate 72 AXES VA 186 P 55 QRSd 100 QRS 62 QT 449 T 70 QTc 474 Conclusion SINUS RHYTHM SEPTAL MYOCARDIAL INFARCTION , PROBABLY OLD [40+ ms Q WAVE IN V1/V2] ABNORMAL ECG UNCONFIRMED REPORT Electronically signed by : LAURIE BAUTISTA, 05/15/2025 06:34:15
[2025-05-14] MEDS: ONDANSETRON 4MG ODT 4 MG SL (15:30)
[2025-05-14] MEDS: OXYCODONE 5MG IMMEDIATE RELEASE TABLET 5 MG PO (15:30)
--- NOTE | 2025-05-14 15:30 | ED_ITS ---
Discharge Plan Disposition Patient Disposition: Home, Self-Care Prescriptions Prescriptions: New ondansetron 4 mg tablet,disintegrating 4 mg PO Q6H PRN (Reason: nausea and vomiting) Qty: 10 0RF oxycodone 5 mg tablet 5 mg PO Q6H PRN (Reason: pain) Qty: 10 0RF No Action Clenpiq 10 mg-3.5 gram- 12 gram/175 mL solution 175 ml PO DAILY Qty: 350 0RF Rx Instructions: take first dose at 5-9PM evening before colonoscopy; 2nd dose the next day approximately 5 hrs before colonoscopy metformin 1,000 mg Tablet 1,000 mg PO DAILY lansoprazole [Prevacid] 15 MG capsule,delayed release(DR/EC) 1 tab PO DAILY aspirin 81 MG tablet,chewable 81 mg PO DAILY metaxalone [Skelaxin] 800 MG tablet 1 tab PO DAILY rosuvastatin [Crestor] 5 MG tablet 1 tab PO DAILY hydrocodone-acetaminophen 5-325 mg tablet 1 tab PO BID PRN (Reason: pain (scale score 7-10)) Qty: 10 0RF Rx Instructions: Please take after 800 mg of ibuprofen as needed has not been successful in reducing her pain to an acceptable level. It is okay to combine with your other opiate prescription however spaced the doses out throughout the day. If you have more than 1 pre-existing opiate prescription do not take this medicine on top of it. Referrals Follow up/Referrals: Doug Reveles DO [Staff Physician, Orthopedics] - See instructions Rios Hernandez MD [Primary Care Provider, Medical] - See instructions Activity Restrictions/Add. Instructions Additional Instructions/Restrictions: Call your family doctor to establish care for this visit to the emergency department and schedule follow-up within 48 hours to ensure improvement. If you have any worsening of your condition or any other concerning signs or symptoms, return to the emergency department or your primary care doctor for further evaluation. Call Dr. Reveles in order to follow-up for the elbow fracture. Zofran before oxycodone 10 to 15 minutes to prevent vomiting. Take Tylenol 1000 mg every 6 hours (4 times daily) and ibuprofen 400 mg every 6 hours (4 times daily) as needed with food and water to prevent GI upset and kidney damage. Clinical Impressions Clinical Impression: Closed fracture of head of left radius, Vaso vagal episode Instructions Patient Instructions: DI for Syncope in Adults (Fainting), DI for Syncope in Children (Fainting) Print Language Print Language: Burmese Discharge ED Provider: Saji Vaughn General Adult HPI General Chief complaint: Syncope Stated complaint: sweating, pain, light headed Time Seen by Provider: 05/14/25 14:56 Mode of Arrival: Wheelchair Source of Information: Patient Description of Symptoms (Recalled from ER Triage Doc. by RN): Pt reports having syncopal episode while on the couch. Pt denies fall or pain. Pt did report having nausea since incident. History of Present Illness HPI narrative: Please note that above description of symptoms, in this electronic medical r ecord under categorization of recalled from ER triage doctor by RN are reflective of an initial nursing assessment, however, is not reflective of my full history and physical exam that was personally taken and clarified. Consequentially, this preceding description of symptoms, which may include the patient's categorized chief complaint in the EMR, do not reflect my personal clinical impression, and the ultimate description of history of present illness and patient stated complaints should be deferred to this section of the note. Unless stated otherwise or congruent with this section of the note, additional signs, symptoms, or incongruence should be interpreted as inaccurate with my clinical impression. Related Data Home Medications ?Medication ?Instructions ?Recorded ?Confirmed aspirin 81 mg chewable tablet 81 mg PO DAILY Blood thi nner 02/06/19 04/23/24 lansoprazole 15 mg capsule,delayed 1 tab PO DAILY stom ach 02/06/19 04/22/24 release (Prevacid) metaxalone 800 mg tablet (Skelaxin) 1 tab PO DAILY mus yfn relaxer 02/06/19 04/22/24 rosuvastatin 5 mg tablet (Crestor) 1 tab PO DAILY Chol esterol 02/06/19 04/22/24 metformin 1,000 mg tablet 1,000 mg PO DAILY 04/22/24 0 04/22/24 Previous Rx's ?Medication ?Instructions ?Recorded sod picosulf 10 mg-magnes 3.5 175 ml PO DAILY bowel pr ep 2 doses 04/20/24 gram-citric 12 gram/175 mL oral #350 mL solution (Clenpiq) hydrocodone 5 mg-acetaminophen 325 1 tab PO BID PRN pa in (scale score 05/14/25 mg tablet 7-10) #10 tabs ondansetron 4 mg disintegrating 4 mg PO Q6H PRN nausea and 05/14/25 tablet vomiting #10 tabs oxycodone 5 mg tablet 5 mg PO Q6H PRN pain #10 tab s 05/14/25 Allergies Allergy/AdvReac Type Severity Reaction Status Date / Time No Known Allergies Allergy Verified 04/23/24 09:11 [facility] Disclaimer: The information contained in this section may have been updated after the patient was seen, as this information can be updated by other users. Medical History (Updated 05/14/25 @ 16:26 by Saji Vaughn MD) History of COVID-19 Gout Osteoarthritis History of gastroesophageal reflux (GERD) Diabetes mellitus, type 2 Hypertension Surgical History History of colonoscopy History of knee replacement Family History Other Family history of cancer Family history of diabetes mellitus type II Social History (Updated 04/23/24 @ 09:37 by Jeni Kaminski CRNA) Smoking Status: Smoker, status unknown alcohol intake: current substance use type: denies use current occupational status: retired Travel in the last 8 weeks?: None caffeine: Yes Have you lived/traveled outside US in past 30 days?: No Contact w/someone who lives/traveled outside US past 30 days?: No Exposure to someone with infectious disease in past 14 days?: No Do you have a fever (greater than 100.4 F or 38 C)?: No Have you tested positive for COVID-19?: No Exposed to someone with COVID-19 in past 14 days?: No Do you have a sore throat?: No Do you have a cough?: No Do you have any weakness?: No Do you have any diarrhea?: No Are you experiencing any unusual bleeding?: No Do you have any muscle aches/pain?: No Do you have any abdominal pain?: No Are you experiencing loss of taste or smell?: No ROS Obtained: Yes All systems reviewed & no additional complaints except as documented Physical Exam General General appearance: alert and in no apparent distress Head Head exam: atraumatic and normocephalic Eye Eye exam: Present normal appearance, PERRL and EOMI Neck Neck exam: Present normal inspection, full ROM and trachea midline Respiratory Respiratory exam: Absent respiratory distress, wheezes, stridor, accessory muscle use or prolonged expiratory phase Cardiovascular Cardiovascular exam: Present other (Pulses equal symmetric in upper and lower extremities) Abdominal Exam Abdominal exam: Present soft; Absent distention, tenderness or pulsatile mass Extremities Exam Extremities exam: Present edema and other (Significant amount of pain about the left elbow with any range of motion) Neurological Exam Neurological exam: Present alert, oriented X3 and CN II-XII intact; Absent motor sensory deficit Skin Skin exam: Present warm and dry; Absent diaphoresis or erythema Medical Decision Making Medical Records Medical records reviewed: Yes I reviewed the patient's medical records. Screening: Per USPSTF and CDC recommendations, given the prevalence of disease in our region, it is our hospital?s policy to screen for HIV and viral Hepatitis for all patients aged 18 and over and those with ongoing risk factors. Manuel Inquiry Pt receiving controlled substance: No Manuel was queried for this patient: No Vital Signs: 05/14/25 15:03 05/14/25 15:31 Temperature 97.8 F Temperature Source Oral Pulse Rate 74 Pulse Rate [Left] 58 L Respiratory Rate 16 Blood Pressure 125/72 Blood Pressure [Left Arm] 138/78 Blood Pressure Mean 89 Blood Pressure Mean [Left Arm] 98 Blood Pressure Source [Left Arm] Automatic Cuff 02 Sat by Pulse Oximetry 96 94 L Oxygen Delivery Method Room Air Orders (Tests/Meds): ED MEDICATIONS Discontinued Medications Generic Name Dose Route Start Last Admin Trade Name Freq PRN Reason Stop Dose Admin Ondansetron HCl 4 mg 05/14/25 15:16 05/14/25 15:30 Ondansetron 4mg Odt SL 05/14/25 15:17 4 mg ONCE ONE Administration Oxycodone HCl 5 mg 05/14/25 15:16 05/14/25 15:30 Oxycodone 5mg Immediate Release Tablet PO 05/14/25 15:17 5 mg ONCE ONE Administration Medical Decision Narrative: This is a 70-year-old male presenting with left elbow pain. He was seen earlier today 05/14. States that he went home after being placed in a sling for radial head fracture and while he was at home, he stood up to get some lunch. When he stood up to get lunch, elbow moved slightly and he had severe, shooting, 10 out of 10 pain in his left elbow that caused him become sweaty, lightheaded, felt as if he was going to pass out. Was able to sit down. Did not fall or sustain any other trauma. No chest pain, palpitations, nausea, vomiting. Patient states he did also have a recent negative coronary catheterization after flanking my stress test. 10 to 15% blockage on that test. History obtained with patient and son. On arrival, patient states he is having 10 out of 10 pain with any movement, but currently having only mild pain at rest. With any range of motion, patient becomes tachycardic and anxious. EKG obtained. Sinus rhythm 72 bpm with VA 186, QRS 100, QTc 474. Normal axis no acute ischemic change. I feel this is consistent with vagal reaction in the setting of severe pain. No further workup was deemed necessary. I independently interpreted patient's x- rays from earlier today. He has a nondisplaced subcapital radial head fracture with buckling of the cortex. With small joint effusion, but otherwise unrem arkable findings. Patient was given Zofran and oxycodone to prevent vomiting. Splinted. Because patient at baseline without signs or symptoms of clinical decompensation, deemed appropriate for discharge. Results were relayed to patient who voiced understanding and were agreeable to outpatient management and follow up. I discussed my clinical impression with patient and answered all questions. At this time, the evidence for any other entities in the differential is insufficient to warrant any further testing or ED observation. This was explained as well. Advisory was given that persistent or worsening symptoms require further evaluation. I confirmed the understanding of this discussion. Welfare Supervisor disclaimer Much of this encounter note is an electronic ankle patch molder spoken language to printed text. Electronic ankle patch molder of the spoken language may permit errors. Although I have reviewed the note, some errors may still exist. Procedures Orthopedic Splinting/Casting Injury #1: Side: left Upper Extremity Injury Location: elbow Upper Extremity Immobilizer: sling/shoulder immobilizer and posterior splint Post Cast/Splinting Neuro Status: intact and no change Post Cast/Splinting Vasc Status: intact and no change Critical Care Critical Care Time Critical Care Time: No
[2025-05-14 15:31] VITALS: BP 125/72; PULSE 74; O2SAT 94
[2025-05-14 16:47] VITALS: BP 124/88; PULSE 78; RESP 19; TEMP 37.1; O2SAT 98
== END 2025-05-14 16:50 | disposition home or self-care (01) ==
PROVIDERS: Emergency Provider Emergency Medicine; PCP Family Medicine
DX: S52.125A Nondisplaced fracture of head of left radius, initial encounter for closed fracture (principal); R55 Syncope and collapse; F17.210 Nicotine dependence, cigarettes, uncomplicated
CPT/HCPCS: 93005; 99283; Q0162

== ENCOUNTER 2025-08-16 11:53 | Outpatient (CLI) | payer MEDICARE, SELFPAY ==
--- OUTSIDE RECORDS SUMMARY | 2024-12-24 05:15 | XMS_ITS ---
Author Organization [facility] Address [address] [place] [id number] Care Team Providers Care Auditor Appraiser Name Role Phone Elmira Hernandez Primary Care [...] 110 Performing Lab: Notes/Report: Test performed by [facility], [facility] , [address], [place] [address] Bruno Milner MD, Network Engineer Administrator CLIA: [id number] Sodium 134 135-145 mmol/L Potassium 4.6 3.5-5.3 [...] Interpretation:Normal Performing Lab: Notes/Report: Test performed by [facility], [address] , [address], [place] [address] Bruno Milner MD, Network Engineer Administrator CLIA: [id number] Albumin/Creatinine Ratio, Urine 10 0-30 ug/m g Microalbumin, Urine, Random 1.2 Creatinine, Urine 115.0 Reason For Referral Reason recurring oleconon b ursitis. He would like to see Dr. Reinoso Diagnosis 1 Olecranon bursitis, left (M70.22) [facility] Referring Provider First Name Elmira Aguirre Referring Provider Last Name David Referring Provider Speciality [facility] Referred Provider Sanjuanita Reinoso Referred Provider Specialty Orthopedic S urgery General Notes Anya Driscoll 11:44:12 AM > faxed to [facility] Referral Priority Routine REASON FOR VISIT 6 month check and AWV, Due for Diabetic Eye Exam Medications Medication SIG (Take, Route, Frequency, Duration) Notes Start Date End Date Status Tamsulosin HCl 0.4 mg TAKE ONE CAPSULE B Y MOUTH EVERY DAY AT BEDTIME; Duration: 90 Active Allopurinol 100 MG Take 2 tablets by wy ut once daily; Duration: 90 Active metFORMIN [...] Provider Diagnosis [facility] [address] [facility] [address] [place], [place] [phone] 12/24/2024 Elmira Hernandez Adult general medica l [...] Details Follow Up: 6 Months, Reason: Provider Name:Francesred madera, 08/16/2025 11:00:00 AM, [address] [facility] [address] [facility], [address], [place], [phone], Provider Name:Elmira Mckeon, 12/28/2025 09:00:00 AM, [address] [facility], [address], [place], [place], [phone], Progress Notes * MICHELE BRASHERDOB:[birth year] (70 yo M)Acc No.[id number]:12/24/2024 Annual Wellness Visit Patient: CAMILLE VALDIVIAKenan MACDONALD Provider: Elmira Hernandez M.D. :1955 A ge:69 Y S ex:Male Date:12/24/2024 Address:[address] [place] [address] [address], [place], [place] Subjective: * Chief Complaints: * 1 . [...] ER for rt knee pain jun.26, [facility]-total right knee replacement 12/04/12. * Family History: [...] Temp:98.5, BP:120/86, HR:74, O2 Sat:90% on RA, Nurse:[facility], Ht: 72, BMI:34.04. * Examination: G eneral [...] past 12 months. D epression Screening: Jacquelyn renoies depressed mood or anxiety. Describes emotional health [...] bursitis, left - M70.22 1 3. B [place] 34.0-34.9,adult - Z68.34 Plan: * Treatment: Value [...] Vickie Centeno 12/24/2024 9:59:1 3 AM > DavidElmira Timothy 12/28/2024 2:15:06 PM >See phone encounter Notes: [...] 0439 ANNUAL WELLNESS VST; PPS SUBSQT VST, 28027 GLYCATED HEMOGLOBIN TEST, Modifiers: QW , G0444 ANNUAL DEPRESSION SCREENING 15 MIN, 1090F PRES/ABSN URINE INCON ASSESS, 3288F FALL RISK ASSESSMENT DOCD, 1170F FXNL STATUS ASSESSED, 1159F MED LIST DOCD IN RCRD, 1003F LEVEL OF ACTIVITY ASSESS, 1036F TOBACCO NON-USER, 3017F COLORECTAL CA SCREEN DOC REV, 57531 CBC WITH AUTO DIFF, 1125F AMNT PAIN [...] * Images: Billing Information: * Visit Code: 09266 Office Visit, Est Pt., Level 3. Modifiers: 25 * Procedure Codes: G0439 ANNUAL WELLNESS VST; PPS SUBSQT VST. 19557 GLYCATED HEMOGLOBIN TEST. Modifiers: QW G0444 ANNUAL DEPRESSION SCREENING 15 MIN. 1090F PRES/ABSN URINE INCON ASSESS. 3288F FALL RISK ASSESSMENT DOCD. 1170F FXNL STATUS ASSESSED. 1159F MED LIST DOCD IN RCRD. 1003F LEVEL OF ACTIVITY ASSESS. 1036F TOBACCO NON-USER. 3017F COLORECTAL CA SCREEN DOC REV. 66646 CBC WITH AUTO DIFF. 1125F AMNT PAIN NOTED PAIN PRSNT. G8510 NEG SCR Depression PT NOT ELIG F/U/PLN DOC. 3044F HG A1C LEVEL LT 7.0%. G8752 MOST RECENT SYSTOLIC BP < 140MM HG. G8754 MOST RECENT DIASTOLIC BP < 90MM HG. * Electronic signature of Elmira Hernandez MD on 08/16/2025 at 11:57 AM EDT Sign off status: Pending * Provider: Elmira Hernandez M.D. Date: 0 12/24/2024 Generated for Printi ng/Faxing/eTransmitting on: 0 08/16/2025 11:57 AM EDT History and Physical Notes * [...]
--- OUTSIDE RECORDS SUMMARY | 2025-03-17 06:45 | XMS_ITS ---
Author Organization [facility] Address [address] [place] [id number] Care Team Providers Care Manager Search Name Role Phone Elmira Hernandez Primary Care Provider Marce Temo Unavailable [phone] Allergies No Known Allergies Results Component Value [...] Allopurinol 100 MG Take 2 tablets by [facility] once daily; Duration: 90 Active Zithromax Z-Raz [...] 03/17/2025 Encounters Encounter Location Date Provider Diagnosis [facility] [address] [place], [place] [phone] 03/17/2025 [facility] [place] Acute URI J06.9 ; Ty pe 2 [...] phone to repo rt progress, Reason: Provider Name:Frances madera, 08/16/2025 11:00:00 AM, [address] [facility] [address] [facility], [address], [place], [place], [phone], Provider Name:Elmira Mckeon, 12/28/2025 09:00:00 AM, [address], [address], [place], [place], [id number], Progress Notes * MICHELE BRASHER TOMDOB:[birth year] (70 yo M)Acc No.[id number]:03/17/2025 Progress Notes Patient: MICHELE VALDIVIA Provider: Juve Zheng M.D. :1955 A ge:70 Y S ex:Male Date:03/17/2025 Address:[address] [place] [address], [facility], [id number] Pcp:Elmira Hernandez Subjective: * Chief Complaints: * [...] Rreflux, Hyperlipidemia, Gout, E.D, Diverticulosis by colonoscopy 08/22; 2013, Hypertension. * Surgical History: R T Knee x 3 , Throat Polyps Removed , nasal surgery , colonoscopy 2004, total right knee replacement 12/04/2012, Colonoscopy/ sigmoid diverticulosis.one polyp/ Dr. Nick 01/2014, C-scope/ Opal/ polyps x 2 01/2019. * Hospitalization/Major Diagno stic Procedure: H ER for rt knee pain 06/2009, [facility]-total right knee replacement 12/04/2012. * Family History: [...] specified complication - E11.69 3 . B [place] 34.0-34.9,adult - Z68.34 Plan: * Treatment: Value [...] G 2211 Complex e/[place], [address] CBC WITH AUTO DIFF, 26566 CAPILLARY BLOOD DRAW, G8752 MOST RECENT SYSTOLIC BP < 140MM HG, G8754 MOST RECENT DIASTOLIC BP < 90MM HG * Follow Up: v ia phone to report progress * Images: Billing Information: * Visit Code: 09558 Office Visit, Est Pt., Level 3. * Procedure Codes: G2211 Complex e/[place]. [address] CBC WITH AUTO DIFF. 47722 CAPILLARY BLOOD DRAW. G8752 MOST RECENT SYSTOLIC BP < 140MM HG. G8754 MOST RECENT DIASTOLIC BP < 90MM HG. * Electronic signature of Jyoti Zheng MD on 08/16/2025 at 11:57 AM EDT Sign off status: Pending * Provider: Juve Zheng M.D. Date: 0 03/17/2025 Generated for Cynthia crouch/Alejandra/eTransmitting on: 0 08/16/2025 11:57 AM EDT History [...]
--- OUTSIDE RECORDS SUMMARY | 2025-04-01 07:30 | XMS_ITS ---
Author Organization [facility] Address [address] [place] [phone] Care Team Providers Care Radio Time Sales Supervisor Name Role Phone Elmira Hernandez Primary Care Provider Marce Temo Unavailable [phone] Allergies No Known Allergies Results Component Value [...] Allopurinol 100 MG Take 2 tablets by [facility] once daily; Duration: 90 Active Crestor 10 [...] 04/01/2025 Encounters Encounter Location Date Provider Diagnosis [facility] [address] [place], [place] [phone] 04/01/2025 Temo Zheng Acute rhiniti s J00 [...] to repo rt progress, Reason: Provider Name:Frances Beverley madera, 08/16/2025 11:00:00 AM, [address] [facility] [address] [facility], [address], [place], [place], [phone], Provider Name:Elmira Mckeon, 12/28/2025 09:00:00 AM, [address] [facility] [address] [facility], [address], [place], [place], [phone], Progress Notes * MICHELE BRASHER TOMDOB:[birth year] (70 yo M)Acc No.[id number]:04/01/2025 Progress Notes Patient: MICHELE VALDIVIA Provider: Juve Zheng M.D. :1955 A ge:70 Y S ex:Male Date:04/01/2025 Address:[address] [address] [address], [place], [id number] Pcp:Elmira Hernandez Subjective: * Chief Complaints: * [...] ER for rt knee pain 06/2009, [facility]-total right knee replacement 12/04/2012. * Family History: [...] G 2211 Complex e/[place], [address] CAPILLARY BLOOD DRAW, 13242 CBC WITH AUTO DIFF * Follow Up: v ia phone to report progress * Images: Billing Information: * Visit Code: 70451 Office Visit, Est Pt., Level 3. * Procedure Codes: G2211 Complex e/[place]. [address] CAPILLARY BLOOD DRAW. 34774 CBC WITH AUTO DIFF. * Electronic signature of Jyoti Zheng MD on 08/16/2025 at 11:57 AM EDT Sign off status: Pending * Provider: Juve Zheng M.D. Date: 0 04/01/2025 Generated for Cynthia crouch/Alejandra/Miah on: 0 08/16/2025 11:57 AM EDT History [...]
--- OUTSIDE RECORDS SUMMARY | 2025-06-24 05:00 | XMS_ITS ---
Author Organization [facility] Address [address] [place] [id number] Care Team Providers Care Retort Condenser Attendant Name Role Phone Elmira Hernandez Primary Care Provider Allergies No Known Allergies Results Component Value Reference Range Notes Glycohemoglobin A1c (in hous e) Reviewed date:07/01/2025 01:31:01 PM Interpretation:6.0% Performing Lab: Notes/Report: 6.0% glycohemoglobin 6.0% 5 - 6.5 % P-Comprehensive Metabolic Pa poly (CMP) Reviewed date:07/01/2025 01:31:01 PM Interpretation:Na 134, gluc 109 Performing Lab: Notes/Report: Test performed by [facility], [employer] [address] [place] [address] , [address], [place] [address] Bruno Milner MD, Staff Pharmacist CLIA: [id number] Sodium 134 135-145 mmol/L Potassium 4.5 3.5-5.3 [...] 181 Performing Lab: Notes/Report: Test performed by [facility], [address] , [place] [address] Bruno Milner MD, Staff Pharmacist CLIA: [id number] Cholesterol 158 <200 mg/dL Triglycerides 181 <150 [...] Interpretation:Normal Performing Lab: Notes/Report: Test performed by [facility], [address] , [address] , [place] [address] Bruno Milner MD, Staff Pharmacist CLIA: [id number] PSA 0.30 <4.00 ng/mL Please note this [...] 06/24/2025 Encounters Encounter Location Date Provider Diagnosis [facility] [address] [facility] [address] [place], [place] [phone] 06/24/2025 R Timothy Hernandez Dyslipidemia E78.5 ; [...] Details Follow Up: 6 Months, Reason: Provider Name:Frances madera, 08/16/2025 11:00:00 AM, [address], [address], [place], [id number], Provider Name:Elmira Mckeon, 12/28/2025 09:00:00 AM, [address], [address], [place], [phone], Progress Notes * MICHELE BRASHER:[birth year] (70 yo M)Acc No.[id number]:06/24/2025 Progress Notes Patient: MICHELE VALDIVIA Provider: Elmira Hernandez M.D. :1955 A ge:70 Y S ex:Male Date:06/24/2025 Address:[address] [place], [place] [address] [address], [place], [phone] Subjective: * Chief Complaints: * 1 . [...] H ER for rt knee pain 06/2009, [facility]-total right knee replacement 12/04/2012. * Family History: [...] riglycerides 181 H <150 - mg/dL * DavidElmira 07/01/2025 01:30:36 PM EDT > reviewed and [...] G 2211 Complex e/[place], [address] CAPILLARY BLOOD DRAW, 89907 GLYCATED HEMOGLOBIN TEST, Modifiers: QW , 3044F HG A1C LEVEL LT 7.0%, 1036F TOBACCO NON-USER, G8950 PREHTN/HTN BP DOC INDCD F/U DOC, G8752 MOST RECENT SYSTOLIC BP < 140MM HG, G8754 MOST RECENT DIASTOLIC BP < 90MM HG * Follow Up: 6 Months * Images: Billing Information: * Visit Code: 13678 Office Visit, Est Pt., Level 4. * Procedure Codes: G2211 Complex e/[place]. [address] CAPILLARY BLOOD DRAW. 52409 GLYCATED HEMOGLOBIN TEST. Modifiers: QW 3044F HG A1C LEVEL LT 7.0%. 1036F TOBACCO NON-USER. G8950 PREHTN/HTN BP DOC INDCD F/U DOC. G8752 MOST RECENT SYSTOLIC BP < 140MM HG. G8754 MOST RECENT DIASTOLIC BP < 90MM HG. * Electronic signature of Elmira Hernandez MD on 08/16/2025 at 11:56 AM EDT Sign off status: Pending * Provider: Elmira Hernandez M.D. Date: 0 06/24/2025 Generated for Cynthia crouch/Alejandra/eTransmitting on: 0 08/16/2025 11:56 AM EDT History and Physical Notes * [...]
--- NOTE | 2025-08-16 11:57 | XR_ITS ---
FINAL REPORT CLINICAL HISTORY: RT ELBOW PAIN COMPARISON: 05/14/2025 FINDINGS: Three views of the right elbow were obtained. There is no acute fracture or dislocation. There is no joint effusion. The joint spaces are intact. There is no soft tissue abnormality. IMPRESSION: No acute bony abnormality. Reviewed, Interpreted and Dictated by Rocael Perales MD Transcribed by Jenae Shen Authenticated and [facility]
--- OUTSIDE RECORDS SUMMARY | 2025-08-16 11:57 | XMS_ITS | Patient Health Record ---
Author Organization [facility] Address [address] [place] [id number] Care Team Providers Care Polisher [place]ial Name Role Phone Elmira Hernandez Primary Care Provider WebbTemo Unavailable [phone] Frances Puri Unavailable [phone] Allergies No Known Allergies Results Component Value Reference Range Notes Glycohemoglobin A1c (in hous e) Reviewed date:07/01/2025 01:31:01 PM Interpretation:6.0% Performing Lab: Notes/Report: 6.0% glycohemoglobin 6.0% 5 - 6.5 % P-Comprehensive Metabolic Pa poly (CMP) Reviewed date:07/01/2025 01:31:01 PM Interpretation:Na 134, gluc 109 Performing Lab: Notes/Report: Test performed by [facility] , [address], [place] [address] Bruno Milner MD, Burning Plant Operator CLIA: [id number] Sodium 134 135-145 mmol/L Potassium 4.5 3.5-5.3 [...] 181 Performing Lab: Notes/Report: Test performed by [facility], [address] , [address], [place] [address] Bruno Milner MD, Burning Plant Operator CLIA: [id number] Cholesterol 158 <200 mg/dL Triglycerides 181 <150 [...] Interpretation:Normal Performing Lab: Notes/Report: Test performed by [facility] [address] , [place] [address] Bruno Milner MD, Burning Plant Operator CLIA: [id number] PSA 0.30 <4.00 ng/mL Please note this is an ultrasensitive PSA assay with a lower limit of detection of 0.014 ng/mL. This test is performed by the [facility] ECLIA methodology. Values obtained with different assay methods or kits cannot be directly compared. CBC Fingerstick (in house) Reviewed date:12/28/2024 02:15:20 [...] 110 Performing Lab: Notes/Report: Test performed by [facility] [address] [place] [address] , [address], [place] [address] Bruno Milner MD, Burning Plant Operator CLIA: [id number] Sodium 134 135-145 mmol/L Potassium 4.6 3.5-5.3 [...] Interpretation:Normal Performing Lab: Notes/Report: Test performed by [facility] [address] [place] [address] , [address], [place] [address] Bruno Milner MD, Burning Plant Operator CLIA: [id number] Albumin/Creatinine Ratio, Urine 10 0-30 ug/m g Microalbumin, Urine, Random 1.2 Creatinine, Urine 115.0 CBC Fingerstick (in house) Reviewed date:03/17/2025 12:29:20 [...] - 38 plat 225 100 - 400 CBC Fingerstick (in house) Reviewed date:04/01/2025 12:25:18 [...] 1 STRIP TEST TWICE A DAY Active Rybelsus 3 MG 1 tab(s) Orally once daily 07/02/2024 Not-Taking Diclofenac Sodium 1 % as directed applie d topically Twice a day prn 08/07/2021 Active ACCUCHECK LANCETS 1 2 TIMES A DAY OR A S DIRECTED 12/31/2022 Active Esomeprazole Magnesium 40 MG Take 1 capsule by mouth once daily; Duration: 90 Active Celecoxib 100 MG 1 capsule Orally twi ce a day; Duration: 30 days 08/16/2025 Active ACCUCHECK GLUCOMETER 1 2 TIMES A DAY OR DIRECTED 12/31/2022 Active Ozempic (0.25 or 0.5 MG/DOSE) 2 MG/3ML 0.25mg Subcutaneous once a week 12/01/2024 Not-Taking Viagra 100 MG 1 tab(s) orally once a day 01/31/2016 Active Loratadine 10 MG 1 tablet Orally Once a day; Duration: 90 days Active Aspirin Adult Low Dose 81 MG 1 tab(s) orally once a day Active HYDROcodone-Acetaminophe n 10-325 MG 1 tab(s) orally every 6 hours prn; Duration: 30 days 08/09/2025 Active metFORMIN HCl 500 MG 1 tab(s) Orally Two times a day Active Cymbalta 60 MG 1 cap(s) orally once a day Active Rosuvastatin Calcium 20 MG Take 1 tablet by mouth once daily Active Fluticasone Propionate 50 MCG/ACT 1 spray in each nostril Nasally once daily 04/01/2025 Active metFORMIN HCl 500 MG Take [address] [facility] twice daily; Duration: 90 Active Lisinopril 10 MG 1 tab(s) orally once a day Active Tamsulosin HCl 0.4 mg TAKE ONE CAPSULE B Y MOUTH EVERY DAY AT BEDTIME; Duration: 90 Active tiZANidine HCl 4 MG 1 tab(s) orally Two times a day Active Allopurinol 100 MG 2 tab(s) orally once daily Active Lisinopril 10 MG 1 tab(s) orally once a day Active Medrol 4 MG as directed orally daily; Duration: 6 days 08/16/2025 Active Immunizations Vaccine Route Administration Date Status [...] Status Risk Notes Problem Gastroesophageal reflux disease (251533796) GERD (gastroesophageal reflux disease) (K21.9) Active confirmed Problem Essential hypertension (17180369) Essential (primary) hypertension (I10) Active confirmed Problem Essential hypertension (98543947) Essential hypertension (I10) Active confirmed Problem Screening for malignant neoplasm of prostate (696511341) Prostate cancer screening (Z12.5) Active confirmed Problem Hyperuricemia (71224290) Hyperuricemia (E79.0) Active confirmed Problem Cervicalgia (89131348) Cervicalgia (M54.2) Active confirmed Problem Male erectile disorder (174407193) Male erectile disorder (F52.21) Active confirmed Problem Benign prostatic hyperplasia (246151249) BPH (benign prostatic hyperplasia) (N40.0) Active confirmed Problem Type 2 diabetes mellitus with other specified complication (E11.69) Active confirmed Problem Hyperlipidemia (94121919) Hyperlipidemia, unspecified (E78.5) Active confirmed Problem Chronic pain syndrome (847436481) Chronic pain syndrome (G89.4) Active confirmed Problem Depression (675615084) Depression (F32.9) Active confirmed Problem Obese class II (041827908385317) BMI 36.0-36.9,adult (Z68.36) Active confirmed Problem Primary osteoarthritis (711596887) Primary osteoarthritis (M19.91) Active confirmed Problem Body mass index 30.00 to 34.99 (631986552150254) BMI 34.0-34.9,adult (Z68.34) Active confirmed Problem Dyslipidemia (045946293) Dyslipidemia (E78.5) Active confirmed Problem Type II diabetes mellitus without complication (743602820) Type 2 diabetes mellitus without complication, without long-term current use of insulin (E11.9) Active confirmed Vital Signs Heart Rate 93 /min 08/16/2025 Blood pressure diastolic 80 mm Hg 08/16/2025 Height 72 in 08/16/2025 Blood pressure systolic 130 mm Hg 08/16/2025 Weight 255.6 lbs 08/16/2025 BMI 34.66 kg/m2 08/16/2025 Encounters Encounter Location Date Provider [facility] [address] [id number] 10/27/2024 R Timothy Hernandez Olecranon bursitis o f left elbow M70.22 ; Cervicalgia M54.2 and Vasovagal syncope R55 [facility] [address] [id number] 12/10/2024 R Timothy Hernandez Olecranon bursitis o f left elbow M70.22 [facility] [address] [place] [id number] 12/24/2024 R Timothy Hernandez Adult general medica l examination Z00.00 [...] bursitis, left M70.22 and BMI 34.0-34.9,adult Z68.34 [facility] [facility] [address] [place], [place] [id number] 03/17/2025 Temo Webb Acute URI J06.9 ; Ty pe 2 diabetes mellitus with other specified complication E11.69 and BMI 34.0-34.9,adult Z68.34 [facility] [facility] [address] [place], [place] [id number] 04/01/2025 Temo Webb Acute rhinitis J00 [facility] [facility] [address] [place] [id number] 06/24/2025 R Timothy David Dyslipidemia E78.5 ; Essential hypertension I10 ; Type 2 diabetes mellitus without complication, without long-term current use of insulin E11.9 ; Hyperuricemia E79.0 ; Cervicalgia M54.2 ; Chronic pain syndrome G89.4 ; Depression F32.9 ; GERD (gastroesophageal reflux disease) K21.9 and BPH (benign prostatic hyperplasia) N40.0 [facility] [facility] [address] [place] [id number] 08/16/2025 Frances Puri Elbow pain, right M25.521 and Hyperuricemia E79.0 [facility] [address] [facility] [address] [place] [id number] 08/31/2024 R Timothy David Chronic pain syndrom e G89.4 [facility] [address] [facility] [address] [place], [place] [id number] 10/01/2024 R Timothy David Chronic pain syndrom e G89.4 [facility] [address] [facility] [address] [place], [place] [id number] 11/02/2024 R Timothy David Chronic pain syndrom e G89.4 [facility] [address] [place], [place] [id number] 12/01/2024 R Timothy David Type 2 diabetes mellitus without complication, without long-term current use of insulin E11.9 [facility] [address] [place] [id number] 12/03/2024 R Timothy David Chronic pain syndrom e G89.4 [facility] [address] [place] [id number] 12/28/2024 R Timothy David [facility] [address] [place] [id number] 01/04/2025 Temo Webb Chronic pain syndrom e G89.4 [facility] [address] [place] [id number] 02/01/2025 R Timothy David Chronic pain syndrom e G89.4 [facility] [address] [place] [id number] 03/08/2025 R Timothy David Chronic pain syndrom e G89.4 [facility] [address] [place] [id number] 04/07/2025 R Timothy David Chronic pain syndrom e G89.4 [facility] [address] [place] [id number] 05/07/2025 R Timothy David Chronic pain syndrom e G89.4 [facility] [address] [place] [id number] 06/07/2025 Temo Webb Chronic pain syndrom e G89.4 [facility] [address] [place], [place] [id number] 07/08/2025 R Timothy David Chronic pain syndrom e G89.4 [facility] [address] [place] [id number] 08/09/2025 R Timothy David Chronic pain syndrom e G89.4 [facility] [address] [place] [id number] 08/10/2025 Elmira Hernandez Assessments Encounter Date Diagnosis (ICD Code) Assessment Notes Treatment Notes Treatment Clinical Notes Section Notes 08/31/2024 Chronic pain syndrome (ICD-10 - G89.4) [...] 05/07/2025 Chronic pain syndrome (ICD-10 - G89.4) 06/07/2025 Chronic pain syndrome (ICD-10 - G89.4) 06/24/2025 Essential hypertension (ICD-10 - I10) 06/24/2025 Dyslipidemia (ICD-10 - E78.5) 07/08/2025 Chronic pain syndrome (ICD-10 - G89.4) 08/09/2025 Chronic pain syndrome (ICD-10 - G89.4) 08/16/2025 Hyperuricemia (ICD-10 - E79.0) 08/16/2025 Elbow pain, right (ICD-10 - M25.521) 06/24/2025 Type 2 diabetes mellitus without complication, without long-term current use of insulin (ICD-10 - E11.9) Reinforced diet and weight loss 03/17/2025 BMI 34.0-34.9,adult (ICD-10 - Z68.34) 12/24/2024 Essential hypertension (ICD-10 - I10) 10/27/2024 Vasovagal syncope (ICD-10 - R55) Following the office procedure, he had a brief syncopal episode and became clammy. He was eventually moved and reclined on the exam table for period of time with application of cool rags. His was called to drive him home. 12/24/2024 Type 2 diabetes mellitus without complication, without long-term current use of insulin (ICD-10 - E11.9) Reinforced diet and weight loss 06/24/2025 Hyperuricemia (ICD-10 - E79.0) 06/24/2025 Cervicalgia (ICD-10 - M54.2) 12/24/2024 Hyperuricemia (ICD-10 - E79.0) 12/24/2024 Cervicalgia (ICD-10 - M54.2) 06/24/2025 Chronic pain syndrome (ICD-10 - G89.4) 06/24/2025 Depression (ICD-10 - F32.9) 12/24/2024 Chronic pain syndrome (ICD-10 - G89.4) 12/24/2024 Depression (ICD-10 - F32.9) 06/24/2025 GERD (gastroesophageal reflux disease) (ICD-10 - K21.9) 06/24/2025 BPH (benign prostatic hyperplasia) (ICD-10 - N40.0) 12/24/2024 GERD (gastroesophageal reflux disease) (ICD-10 - K21.9) 12/24/2024 BPH (benign prostatic hyperplasia) (ICD-10 - N40.0) 12/24/2024 Nausea (ICD-10 - R11.0) Nausea is likely related to the semaglutide that he started taking. Advised to discontinue this medication until his symptoms are resolved. 12/24/2024 Olecranon bursitis, left (ICD-10 - M70.22) 12/24/2024 BMI 34.0-34.9,adult (ICD-10 - Z68.34) 06/24/2025 Other Plan Of Treatment Pending Test Test Name Order Date X ray : Elbow, right 08/16/2025 CBC Venipuncture (in house) 08/16/2025 P-Uric Acid 08/16/2025 Next Appt Details Provider Name:Frances madera, 08/16/2025 11:00:00 AM, [address], [place], [place], [id number], Provider Name:Elmira Mckeon, 12/28/2025 09:00:00 AM, [address], [place], [place], [id number], Insurance Providers Payer Name Payer Address Payer Phone Subscriber Number Group Number Insured Name Patient Relationship to Insured Coverage Start Date Coverage End Date MEDICARE PART B [address] [address] [place] [address] [phone] [id number] MICHELE BRASHER Self - patient is the insured [facility] [employer] [address] [place] [address] [phone] [id number] MICHELE BRASHER Self - patient is the insured Medications Administered Medication Instructions Date of Administration Dosage Notes Dexamethasone 01/11/2006 1 mL Medical (General) History Medical History History ICD Code Depression Esophageal Reflux Hyperlipidemia Gout E.D Diverticulosis by colonoscopy 08/22/2014 Hypertension Type 2 DM Surgical History Surgery Date(Month/Year) RT Knee x 3 Throat Polyps Removed nasal surgery colonoscopy 2004 total right knee replacement 12/04/2012 Colonoscopy/ sigmoid diverticulosis.one polyp/ Dr. Nick 01/2014 C-scope/ Opal/ polyps x 2 01/2019 Hospitalization History Reason Date(Month/Year) [facility]-total right knee replace [facility] 12/04/2012 [facility] ER for rt knee pain 06/2009
== END 2025-08-16 23:59 | disposition home or self-care (01) ==
LOC: RAD 11:55
PROVIDERS: PCP Family Medicine; Visit Provider Nurse Practitioner Family
DX: M25.521 Pain in right elbow (principal)
CPT/HCPCS: 73080

== ENCOUNTER 2025-10-12 14:00 | Outpatient (RCR) | payer MEDICARE, SELFPAY ==
--- NOTE | 2025-09-28 08:52 | HMH.PTOPEV ---
PT Evaluation Rehab PT Outpatient Evaluation Start: 09/28/25 07:49 Freq: Status: Active Protocol: Document 09/28/25 07:53 SABINE (Rec: 09/28/25 08:52 SABINE [id number]) E-signed By Vinnie Remy, PT Outpatient Therapy Subjective History Subjective History Pt is a 70 yom who is referred to [facility] outpatient PT with complaints of neck pain. Pt reports that he has been dealing with neck pain for at least 30 years. Pt reports that he has had PT intermittently at least 1-2x /year for the past 5 years. Pt reports that he has responded well to manual therapy and traction in the past. Pt reports that he has a lot of difficulty with drinking and with turning his head while driving. Pt reports that he takes pain medication and reports that he often stretches his neck, which helps some. Occupation: Disabled PMH: HTN, HLD, T2DM New diagnosis of No cancer in past 12 months? Chief Complaint Pain,Stiff Symptom Type Ache,Sharp Symptoms Relieved By Prescription Meds Symptoms Aggravated Twisting By Prior Functional None Limitations Current Functional Housework,Dressing,Desk Work/Reading,Driving Limitations Symptom Description Constant but Variable,Activity Dependent Level of pain today 5 (0-10) Pain scale - at its 3 best (0-10) Pain scale - at its 10 worst (0-10) Cervical Eval Palpation Cervical Muscles R Cervical Paraspinal,R CT Junction,R Upper Trapezius,L Upper Trapezius Cervical/Thoracic Tenderness Palpation Findings Flexibility Deficits Upper Trapezius (R) Severe Tightness,(L) Severe Tightness Muscle Length Pectoralis Minor (R) Moderate Tightness,(L) Moderate Tightness Muscle Length Passive Joint Mobility Cervical PIVM Dec: R C2/3 R C3/4 R C4/5 R C5/6 AROM Cervical Spine 8 Extension Active Range of Motion ( degrees) Cervical Spine 15 Flexion Active Range of Motion (degrees) Cervical Spine Right 10 Lateral Flexion Active Range of Motion (degrees) Cervical Spine Left 10 Lateral Flexion Active Range of Motion (degrees) Cervical Spine Right 14 Rotation Active Range of Motion ( degrees) Cervical Spine Left 14 Rotation Active Range of Motion ( degrees) Special Test C-Spine Foraminal Negative Left,Negative Right Compression ( [place]) Test C-spine Verterbral Right P/A [place] Accessory Movements that Elicit Symptoms C-Spine Foraminal Negative Distraction Test C-Spine Compression Negative Left,Negative Right Test C-Spine Swallowing Negative Left Test Shoulder Abduction Negative Left,Negative Right Relief Test Shoulder Brachial Negative Left,Negative Right Plexus Stretch Test Neck Disability Index Neck Disability Index Section 1: Pain The pain is moderate at the moment Intensity Section 2: Personal I can look after myself normally without causing extra Care (washing, pain dressing, etc.) Section 3: Lifting I can lift heavy weights without extra pain Section 4: Reading I can read as much as I want to with no pain in my neck Section 5: Headaches I have slight headaches, which come infrequently Section 6: I can concentrate fully when I want to with no Concentration difficulty Section 7: Work I can do as much work as I want to Section 8: Driving I can drive my car as long as I want with moderate pain in my neck Section 9: Sleeping My sleep is slightly disturbed (less than 1 hr sleepless) Section 10: I am able to engage in all my recreation activities Recreation with some pain in NDI Score 7 Miscellaneous Dx PT Eval Objective Objective Rhomboid MMT: 3+/5 b/l Outpatient Therapy Assessment Impairments Problems/ Palpation Tenderness,Impaired Range of Motion,Impaired Impairmments Strength,Impaired Driving,Impaired Lifting,Impaired Household Care,Subjective C/O Pain,Impaired Self Care/ Self Management Prognosis Rehab Potential Good Comment w HEP compliance Clinical Impression Consistent with Yes Diagnosis Consistent with Cervicalgia PT Patient Goals PT Patient Goals PT Short Term In 4 weeks: Patient Goals 1. Patient will report a 48 hour average pain of 5/10 on the numeric pain rating scale to demonstrate improvement in quality of life and increased functional capacity. 2. Patient will improve rhomboid strength upon manual muscle testing to 4/5 facilitate increased spinal stabilization, cervical support and improved functional capabilities. 3. Patient will demonstrate a reduction in trigger point sensitivity to Grade 2 with manual palpation to improve comfort during activity and soft tissue mobility. 4. Patient will improve cervical ROM by 5 degrees without pain in all planes to demonstrate improved movement patterns with functional mobility and ADLs. 5. Pt will demonstrate HEP compliance by completing prescribed HEP 4-5x/week. 6. Pt will improve NDI score to 5 to demonstrate improvement functional capabilities and improved QOL. 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 Patient will report a 48 hour average pain of 2-3/10 on the numeric pain rating scale to demonstrate improvement in quality of life and increased functional capacity. 2. Patient will improve rhomboid strength upon manual muscle testing to 4+/5 facilitate increased spinal stabilization and improved functional capabilities. 3. Patient will demonstrate a reduction in trigger point sensitivity to Grade 0-1 with manual palpation to improve comfort during activity and soft tissue mobility. 4. Patient will improve cervical ROM by 10-15 degrees, without pain, in all planes to demonstrate improved movement patterns with functional mobility and ADLs. 5. Pt will improve NDI score to 4 to demonstrate improvement functional capabilities and improved QOL. Outpatient Therapy Plan of Care Treatment Plan May Include Therapeutic Exercise Yes Including Home Exercise Program Manual Therapy Yes Techniques Neuromuscular Re- Yes education Therapeutic Yes Activities to Return to Previous Functional/Work Level Gait Training Yes ADL/Self Care Yes Education Mechanical Traction Yes Thermal Modalities Yes Electrical Yes Stimulation Massage Yes Eval/Re-Eval Yes Frequency Times per week 2 Duration Number of Weeks 8 Addendums This patient is a No candidate for social or vocational rehab ? Patient/Guardian Yes verbally acknowledges understanding of treatment program and consents to further treatment? Patient/Guardian Yes verbally acknowledges understanding of diagnosis, prognosis and goals for treatment? Eval Complexity PT Charges 21373 - High Complexity Shoulder/Elbow Eval Shoulder Objective Measurements Elbow Objective Measurements PHYSICIAN CERTIFICATION: I certify the specified therapy services for Bryan Brasher are required, authorized, and reviewed every 30 days.
== END 2025-10-12 23:59 | disposition home or self-care (01) ==
LOC: PT 14:00
PROVIDERS: PCP Family Medicine; Visit Provider Family Medicine
DX: M54.2 Cervicalgia (principal)
CPT/HCPCS: 97110; 97163

== ENCOUNTER 2025-10-12 14:38 | Outpatient (CLI) | payer MEDICARE, SELFPAY ==
--- OUTSIDE RECORDS SUMMARY | 2024-06-23 04:00 | XMS_ITS ---
Author Organization [facility] Address [address] [place] [id number] Care Team Providers Care Dye Weigher Helper Name Role Phone Elmira Hernandez Primary Care Provider [phone] Allergies No Known Allergies Results Component Value Reference Range Notes Glycohemoglobin A1c (in hous e) Reviewed date:06/25/2024 08:27:03 AM Interpretation:5.8% Performing Lab: Notes/Report: 5.8% glycohemoglobin 5.8% 5 - 6.5 % P-Comprehensive Metabolic Pa poly (CMP) Reviewed date:06/25/2024 08:27:02 AM Interpretation:Na 134, gluc 125 Performing Lab: Notes/Report: Test performed by [facility], [facility] [address] [place] [address] , [address], [place] [address] Bruno Milner MD, Crew Lead CLIA: [id number] Sodium 134 135-145 mmol/L Potassium 4.4 3.5-5.3 mmol/L Chloride 98 97-108 mmol/L CO2 26 22-32 mmol/L Glucose 125 65-99 mg/dL BUN 11 8-23 mg/dL Creatinine 0.92 0.70-1.30 mg/dL Calcium 9.3 8.6-10.4 mg/dL eGFR by Creatinine 90 >59 mL/min/1.73m2 Protein 7.1 6.0-8.3 g/dL Albumin 4.2 3.5-5.3 g/dL Alkaline Phosphatase 65 40-129 IU/L ALT (SGPT) 15 <5-55 IU/L AST (SGOT) 17 <5-46 IU/L Bilirubin, Total 0.2 <0.2-1.2 mg/dL A/G Ratio 1.4 1.1-2.5 mg/dL P-Lipid Panel Reviewed date:06/25/2024 08:27:02 AM Interpretation:trigs 236 Performing Lab: Notes/Report: Test performed by [facility], [address] , [address], [place] [address] Bruno Milner MD, Crew Lead CLIA: [id number] Cholesterol 159 <200 mg/dL Triglycerides 236 <150 mg/dL HDL Cholesterol 42 >39 mg/dL Cholesterol / HDL Ratio 3.79 0.00-4.99 Ratio Non-HDL Cholesterol 117 <130 mg/dL LDL Cholesterol (Calculation) 70 <130 mg/dL LDL Cholesterol Levels* Less than 100 mg/dL Optimal 100 to 129 mg/dL Near Optimal/ Above Optimal 130 to 159 mg/dL Borderline High 160 to 189 mg/dL High 190 mg/dL and above Very High * Categories as recommended by the 2004 ATPIII guidelines LDL/HDL Ratio 1.7 <3.3 Ratio LDL Cholesterol Patient History Test Date: 12/24/2023 LDL Results: 75 Units: mg/dL % Change: - Test Date: 06/23/2024 LDL Results: 70 Units: mg/dL % Change: -6% P-PSA Reviewed date:06/25/2024 08:27:02 AM Interpretation:Normal Performing Lab: Notes/Report: Test performed by [facility] [address] [place] [address] , [address], [place] [address] Bruno Milner MD, Crew Lead CLIA: [id number] PSA 0.28 <4.00 ng/mL Please note this is an ultrasensitive PSA assay with a lower limit of detection of 0.014 ng/mL. This test is performed by the [employer] ECLIA methodology. Values obtained with different assay methods or kits cannot be directly compared. P-Uric Acid Reviewed date:06/25/2024 08:27:03 AM Interpretation:Normal Performing Lab: Notes/Report: Test performed by [facility] [address] [place] [address] , [address], [place] [id number] Bruno Milner MD, Crew Lead CLIA: [id number] Uric Acid 5.1 3.4-8.0 mg/dL Reason For Referral Reason skin survey. Family hx of melanoma Diagnosis 1 Skin cancer screenin g (Z12.83) [facility]erring Provider First Name Elmira gAuirre Referring Provider Last Name David Referring Provider Speciality [facility] Referred Provider Kelli Beasley General Notes Anya Driscoll 10:18:34 AM > [facility] 09/08/2024 at 02:20pm; called patient but vm not set up; will try later, Anya Driscoll 06/23/2024 11:53:00 AM > patient informed Referral Priority Routine REASON FOR VISIT 6 months, Needs labs with PSA Medications Medication SIG (Take, Route, Frequency, Duration) Notes Start Date End Date Status Crestor 10 MG 1 tab once a day Active Cymbalta 60 MG 1 cap(s) orally once a day Active DULoxetine HCl 60 MG Take 1 capsule by m outh once daily; Duration: 90 Unknown ARIPiprazole 10 MG 1 tablet Orally Once a day; Duration: 90 days Unknown FLONASE NASAL SPRAY 50MCG PER SPRAY 2 SPRAY EACH NOSTRIL BID Not-Taking ACCUCHECK TEST STRIPS 1 STRIP TEST TWICE A DAY 01/01/2023 Active Rosuvastatin Calcium 20 MG Take 1 tablet by mouth once daily; Duration: 90 Active Lisinopril 10 MG Take 1 tablet by marcie once daily; Duration: 90 Active Diclofenac Sodium 1 % as directed applie d topically Twice a day prn 08/07/2021 Active ACCUCHECK GLUCOMETER 1 2 TIMES A DAY OR DIRECTED 12/31/2022 Active Tamsulosin HCl 0.4 mg TAKE ONE CAPSULE B Y MOUTH EVERY DAY AT BEDTIME; Duration: 90 Active ACCUCHECK LANCETS 1 2 TIMES A DAY OR A S DIRECTED 12/31/2022 Active Viagra 100 MG 1 tab(s) orally once a day 01/31/2016 Active Aspirin Adult Low Dose 81 MG 1 tab(s) orally once a day Active HYDROcodone-Acetaminophen 10-325 MG 1 tab(s) orally every 6 hours prn Active metFORMIN HCl 500 MG 1 tab(s) Orally Two times a day Active Esomeprazole Magnesium 40 MG 1 cap(s) orally once a day Active tiZANidine HCl 4 MG 1 tab(s) orally Two times a day Active Allopurinol 100 MG 2 tab(s) orally once daily Active Abilify 10 MG 1 tab(s) orally once a day Active Lisinopril 10 MG 1 tab(s) orally once a day Active Problems Problem Type SNOMED Code ICD Code Onset Dates Problem Status W/U Status Risk Notes Problem Benign prostatic hyperplasia (166244619) BPH (benign prostatic hyperplasia) (N40.0) Active confirmed Vital Signs Blood pressure systolic 136 mm Hg 06/23/20 24 Blood pressure diastolic 78 mm Hg 024 Heart Rate 88 /min 06/23/2024 Height 72 in 06/23/2024 Weight 251.4 lbs 06/23/2024 BMI 34.09 kg/m2 06/23/2024 Encounters Encounter Location Date Provider Diagnosis [facility] [address] [place] [id number] 06/23/2024 R Timothy David Hyperuricemia E79.0 ; Type 2 diabetes mellitus without complication, without long-term current use of insulin E11.9 ; Chronic pain syndrome G89.4 ; Depression F32.9 ; Dyslipidemia E78.5 ; Essential hypertension I10 ; GERD (gastroesophageal reflux disease) K21.9 ; Cervicalgia M54.2 ; Prostate cancer screening Z12.5 ; Skin cancer screening Z12.83 and BPH (benign prostatic hyperplasia) N40.0 Assessments Encounter Date Diagnosis (ICD Code) Assessment Notes Treatment Notes Treatment Clinical Notes Section Notes 06/23/2024 Hyperuricemia (ICD-10 - E79.0) 06/23/2024 Type 2 diabetes mellitus without complication, without long-term current use of insulin (ICD-10 - E11.9) Reinforced diet and weight loss 06/23/2024 Chronic pain syndrome (ICD-10 - G89.4) 06/23/2024 Depression (ICD-10 - F32.9) 06/23/2024 Dyslipidemia (ICD-10 - E78.5) 06/23/2024 Essential hypertension (ICD-10 - I10) 06/23/2024 GERD (gastroesophageal reflux disease) (ICD-10 - K21.9) 06/23/2024 Cervicalgia (ICD-10 - M54.2) 06/23/2024 Prostate cancer screening (ICD-10 - Z12.5) 06/23/2024 Skin cancer screening (ICD-10 - Z12.83) 06/23/2024 BPH (benign prostatic hyperplasia) (ICD-10 - N40.0) Plan Of Treatment Medication Medication Name Sig Start Date Stop Date Notes Crestor 10 MG 1 tab once a day Cymbalta 60 MG 1 cap(s) orally once a day Tamsulosin HCl 0.4 mg TAKE ONE CAPSULE B Y MOUTH EVERY DAY AT BEDTIME; Duration: 90 HYDROcodone-Acetaminophen 10 -325 MG 1 tab(s) orally every 6 hours prn metFORMIN HCl 500 MG 1 tab(s) Orally Two times a day Esomeprazole Magnesium 40 MG 1 cap(s) orally once a day tiZANidine HCl 4 MG 1 tab(s) orally Two times a day Allopurinol 100 MG 2 tab(s) orally once daily Abilify 10 MG 1 tab(s) orally once a day Lisinopril 10 MG 1 tab(s) orally once a day Treatment Notes Assessment Notes Type 2 diabetes mellitus wit hout complication, without long-term current use of insulin Reinforced diet and weight loss Referrals Referral Date Details 06/23/2024 06/23/2024, skin annabella vey. Family hx of melanoma Next Appt Details Follow Up: 6 Months, Reason: Provider Name:Elmira Aguirre Heenapopeye lombardi, 12/28/2025 09:00:00 AM, [address], [address], [place], [place], [id number], Progress Notes * Bryan BRASHERDOB:[birth year] (70 yo M)Acc No.[id number]:06/23/2024 Progress Notes Patient: Bryan VALDIVIA Provider: Elmira Hernandez M.D. :1955 A ge:69 Y S ex:Male Date:06/23/2024 Address:[address] [place] [address] [address] [id number] Subjective: * Chief Complaints: * 1 . 6 months. 2. Needs labs with PSA. * HPI: C ardiology: He comes in today for scheduled checkup. Interim history is reviewed and he has no new concerns. E ndocrinology: c/o Weight Gain i nterested in oral semglutide. Maintenance P t is fasting today. D ermatology: He has several siblings with history of melanoma and he requests referral to dermatology for skin survey. He has no specific concerns. * ROS: D ERMATOLOGY: no R jeanie. n o H brandon. G ASTROENTEROLOGY: no N ausea. n o V omiting. U ROLOGY: no D ifficulty urinating. n o B lood in urine. * Medical History: D epression, Esophageal reflux, HLP, Gout, E.D, Diverticulosis by colonoscopy 08/22; 2013, HBP. * Surgical History: r ight knee surgery x 3 , throat polyps removed , nasal surgery , colonoscopy 2004, total right knee replacement 12/04/12, Colonoscopy/ sigmoid diverticulosis.one polyp/ Dr. Nick 01/2014, C-scope/ Joseph/ polyps x 2 01/2019. * Hospitalization/Major Diagno stic [facility] * Family History: F ather: . M other: alive, diagnosed with Hypertension. 1 son(s) , 1 daughter(s) . . Brother - S/P CABG. Brother with DM. Pat. aunt with DM Several siblings with melanoma. * Social History: C URRENT TOBACCO USE S moking Status: Patient does NOT smoke. C affeine: yes, frequency:coffee. Home smoke detector use: yes. Marital Status: . Past smoking status: no, Smoking status: Does not smoke. Sexually active: yes. * Medications: T aking Viagra 100 MG Tablet 1 tab(s) orally once a day , Taking Aspirin Adult Low Dose 81 MG Tablet Delayed Release 1 tab(s) orally once a day , Taking ACCUCHECK LANCETS LANCET 1 2 TIMES A DAY OR DIRECTED , Taking ACCUCHECK GLUCOMETER 1 2 TIMES A DAY OR DIRECTED , Taking ACCUCHECK TEST STRIPS 1 STRIP TEST TWICE A DAY , Taking Rosuvastatin Calcium 20 MG Tablet Take 1 tablet by mouth once daily , Taking Lisinopril 10 MG Tablet Take 1 tablet by mouth once daily , Taking Crestor 10 MG Tablet 1 tab once a day , Taking Cymbalta 60 MG Capsule Delayed Release Particles 1 cap(s) orally once a day , Taking Abilify 10 MG Tablet 1 tab(s) orally once a day , Taking Lisinopril 10 MG Tablet 1 tab(s) orally once a day , Taking Allopurinol 100 MG Tablet 2 tab(s) orally once daily , Taking metFORMIN HCl 500 MG Tablet 1 tab(s) Orally Two times a day , Taking Esomeprazole Magnesium 40 MG Capsule Delayed Release 1 cap(s) orally once a day , Taking Tamsulosin HCl 0.4 mg Capsule TAKE ONE CAPSULE BY MOUTH EVERY DAY AT BEDTIME , Taking tiZANidine HCl 4 MG Tablet 1 tab(s) orally Two times a day , Taking Diclofenac Sodium 1 % Gel as directed applied topically Twice a day prn , Taking HYDROcodone-Acetaminophen 10-325 MG Tablet 1 tab(s) orally every 6 hours prn , Not-Taking FLONASE NASAL SPRAY 50MCG PER SPRAY 2 SPRAY EACH NOSTRIL BID , Discontinued Medrol 4 MG Tablet Therapy Pack as directed orally daily , Unknown DULoxetine HCl 60 MG Capsule Delayed Release Particles Take 1 capsule by mouth once daily , Unknown ARIPiprazole 10 MG Tablet 1 tablet Orally Once a day , Medication List reviewed and reconciled with the patient * Allergies: N .K.D.A. Objective: * Vitals: W t:251.4, Temp:97.6, BP:136/78, HR:88, O2 Sat:98% on RA, Nurse:DINESH, Ht: 72, BMI:34.09. * Examination: G eneral Examination: General Appearance: N o acute distress at rest. Moves easily onto the exam table. Weight gain noted. N mini: He has decreased range of motion with limited extension and rotation. MIld crepitus palpable. H eart: R SR. L ungs: clear to auscultation. E xtremities: n o leg edema. Assessment: * Assessment: 1. T ype 2 diabetes mellitus without complication, without long-term current use of insulin - E11.9 (Primary) 2 . H yperuricemia - E79.0 3 . C hronic pain syndrome - G89.4 4 . D epression - F32.9 5 . D yslipidemia - E78.5 6 . E ssential hypertension - I10 7 . G ERD (gastroesophageal reflux disease) - K21.9 8 . C ervicalgia - M54.2 9 .?Prostate cancer screening - Z12.5 1 0. S kin cancer screening - Z12.83 & #160; 1 1. B PH (benign prostatic hyperplasia) - N40.0 Plan: * Treatment: Value Reference Range g lycohemoglobin 5.8% 5 - 6.5 % * Niru Hernandze 06/23/2024 9:37: 26 AM > Elmira Hernandez 06/25/2024 8:26:53 AM >See phone encounter Notes: Reinforced diet and weight loss??2.?Hyperuricemia? Refill Allopurinol Tablet, 100 MG, 2 tab(s), orally, once daily, 180, Refills 1.?LAB: P-Uric Acid (Collection Date & Time - 06/23/2024 08:15 AM)?Normal* Value Reference Range U destin Acid 5.1 3.4-8.0 - mg/dL * Elmira Hernandez 06/25/2024 8: 26:53 AM >See phone encounter 3.?Chronic pain syndrome? Refill HYDROcodone-Acetaminophen Tablet, 10-325 MG, 1 tab(s), orally, every 6 hours prn, 60, Refills 0.??4.?Depression? Refill Cymbalta Capsule Delayed Release Particles, 60 MG, 1 cap(s), orally, once a day, 90, Refills1;?Refill Abilify Tablet, 10 MG, 1 tab(s), orally, once a day, 90, Refills 1.??5.?Dyslipidemia? Refill Crestor Tablet, 10 MG, 1 tab, once a day, 90, Refills 1.?LAB: P-Lipid Panel (Collection Date & Time - 06/23/2024 08:15 AM)?trigs 236 * Value Reference Range C holesterol / HDL Ratio 3.79 0.00-4.99 - Ratio * C holesterol 159 <200 - mg/dL * H DL Cholesterol 42 >39 - mg/dL * L DL Cholesterol (Calculation) 70 <130 - mg/d L * L DL/HDL Ratio 1.7 <3.3 - Ratio * N on-HDL Cholesterol 117 <130 - mg/dL * T riglycerides 236 H <150 - mg/dL * Elmira Hernandez 06/25/2024 8: 26:53 AM >See phone encounter 6.?Essential hypertension? Refill Lisinopril Tablet, 10 MG, 1 tab(s), orally, once a day, 90, Refills 1.?LAB: P-Comprehensive Metabolic Panel (CMP) (Collection Date & Time - 06/23/2024 08:15 AM)?Na 134, gluc 125* Value Reference Range A /G Ratio 1.4 1.1-2.5 - mg/dL * A lbumin 4.2 3.5-5.3 - g/dL * A lkaline Phosphatase 65 40-129 - IU/L * A LT (SGPT) 15 <5-55 - IU/L * A ST (SGOT) 17 <5-46 - IU/L * B ilirubin, Total 0.2 <0.2-1.2 - mg/dL * B UN 11 8-23 - mg/dL * C alcium 9.3 8.6-10.4 - mg/dL * C hloride 98 97-108 - mmol/L * C O2 26 22-32 - mmol/L * C reatinine 0.92 0.70-1.30 - mg/dL * G lucose 125 H 65-99 - mg/dL * P otassium 4.4 3.5-5.3 - mmol/L * S odium 134 L 135-145 - mmol/L * P rotein 7.1 6.0-8.3 - g/dL * e GFR by Creatinine 90 >59 - mL/min/1.73m2 * Elmira Hernandez 06/25/2024 8: 26:53 AM >See phone encounter 7.?GERD (gastroesophageal reflux disease)? Refill Esomeprazole Magnesium Capsule Delayed Release, 40 MG, 1 cap(s), orally, once a day, 90, Refills 1.??8.?Cervicalgia? Refill tiZANidine HCl Tablet, 4 MG, 1 tab(s), orally, Two times a day, 180, Refills 1.??9.?Prostate cancer screening?LAB: P-PSA (Collection Date & Time - 06/23/2024 08:15 AM)?Normal* Value Reference Range P SA 0.28 <4.00 - ng/mL * Elmira eHrnandez 06/25/2024 8: 26:53 AM >See phone encounter 10.?Skin cancer screening? Referral To: Kelli Beasley ?Reason:skin survey. Family hx of melanoma 11.?Others? Refill Tamsulosin HCl Capsule, 0.4 mg, TAKE ONE CAPSULE BY MOUTH EVERY DAY AT BEDTIME, 90, 90 Capsule, Refills 1.?? * Procedure Codes: 9 [address] [place], [address] CAPILLARY BLOOD DRAW, [address] GLYCATED HEMOGLOBIN TEST, Modifiers: QW * Follow Up: 6 Months * Images: Billing Information: * Visit Code: 97026 Office Visit, Est Pt., Level 4. * Procedure Codes: [address] [place]. [address] CAPILLARY BLOOD DRAW. 376[address] GLYCATED HEMOGLOBIN TEST. Modifiers: QW * Electronic signature of Elmira Hernandez MD on 10/12/2025 at 02:45 PM EST Sign off status: Pending * Provider: Elmira Hernandez M.D. Date: 0 06/23/2024 Generated for Printi ng/Faxing/eTransmitting on: 1 12/12/2024 02:45 PM EST History and Physical Notes * HPI (History of Present Illness) Category Sub-Category Detail Notes Category Not es Endocrinology Weight Gain interested in oral semgluti de Maintenance Pt is fasting today Examination Category Sub-Category Detail Notes Category Not es General Examination Heart: RSR Lungs: clear to auscultatio n Extremities: no leg edema General Appearance: No acute distress at rest. Moves easily onto the exam table. Weight gain noted Neck: He has decreased ran ge of motion with limited extension and rotation. MIld crepitus palpable Consultation Request Notes Referral Date Referring Provider Referred Provider Not es 06/23/2024 Elmira Hernandez, Kelli skin chávez jim. Family hx of melanoma
--- OUTSIDE RECORDS SUMMARY | 2024-10-27 10:30 | XMS_ITS ---
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 Referred Provider Specialty Physical The rapist General Notes Anya Driscoll 024 4:12:37 PM > faxed to [facility] PT Referral Priority Routine REASON FOR VISIT swollen elbow Medications Medication SIG (Take, Route, Frequency, Duration) Notes Start Date End Date Status Aspirin Adult Low Dose 81 MG 1 tab(s) orally once a day Active Viagra 100 MG 1 tab(s) orally once a day 01/31/2016 Active ACCUCHECK LANCETS 1 2 TIMES A DAY OR A S DIRECTED 12/31/2022 Active Lisinopril 10 MG 1 tab(s) orally once a day Active Cymbalta 60 MG 1 cap(s) orally once a day Active Tamsulosin HCl 0.4 mg TAKE ONE CAPSULE B Y MOUTH EVERY DAY AT BEDTIME; Duration: 90 Active Allopurinol 100 MG Take 2 tablets by [facility] once daily; Duration: 90 Active Crestor 10 MG 1 tab once a day Active HYDROcodone-Acetaminophen 10-325 MG 1 tab(s) orally every 6 hours prn 10/01/2024 Active metFORMIN HCl 500 MG 1 tab(s) Orally Two times a day; Duration: 90 days Active Abilify 10 MG 1 tab(s) orally once a day Active Diclofenac Sodium 1 % as directed applie d topically Twice a day prn 08/07/2021 Active Esomeprazole Magnesium 40 MG 1 cap(s) orally once a day Active tiZANidine HCl 4 MG 1 tab(s) orally Two times a day Active Rybelsus 3 MG 1 tab(s) Orally once daily 07/02/2024 Active ACCUCHECK GLUCOMETER 1 2 TIMES A DAY OR DIRECTED 12/31/2022 Active Rosuvastatin Calcium 20 MG Take 1 tablet by mouth once daily; Duration: 90 Active ACCUCHECK TEST STRIPS 1 STRIP TEST TWICE A DAY Active Vital Signs Blood pressure systolic 100 mm Hg 10/27/20 24 Blood pressure diastolic 60 mm Hg 024 Heart Rate 92 /min 10/27/2024 Height 72 in 10/27/2024 Weight 255.0 lbs 10/27/2024 BMI 34.58 kg/m2 10/27/2024 Encounters Encounter Location Date Provider Diagnosis [facility] [address], [place] [id number] 10/27/2024 R Timothy Hernandez Olecranon bursitis o f left elbow M70.22 ; Cervicalgia M54.2 and Vasovagal syncope R55 Assessments Encounter Date Diagnosis (ICD Code) Assessment Notes Treatment Notes Treatment Clinical Notes Section Notes 10/27/2024 Olecranon bursitis of left elbow (ICD-10 - M70.22) PROCEDURE: The elbow was prepped with Betadine. Anesthesia is obtained with 1% lidocaine locally. The bursa was then entered with an 18-gauge needle and 10 cc of serosanguineous fluid is aspirated. Bursa then injected with Depo-Medrol 40 mg. Elbow wrapped with Coban. He is advised to keep the elbow wrapped for the next 5 to 7 days. 10/27/2024 Cervicalgia (ICD-10 - M54.2) 10/27/2024 Vasovagal syncope (ICD-10 - R55) Following the office procedure, he had a brief syncopal episode and became clammy. He was eventually moved and reclined on the exam table for period of time with application of cool rags. His was called to drive him home. Plan Of Treatment Treatment Notes Assessment Notes Olecranon bursitis of left elbow PROCEDU RE: The elbow was prepped with Betadine. Anesthesia is obtained with 1% lidocaine locally. The bursa was then entered with an 18-gauge needle and 10 cc of serosanguineous fluid is aspirated. Bursa then injected with Depo-Medrol 40 mg. Elbow wrapped with Coban. Vasovagal syncope Following the office procedure, he had a brief syncopal episode and became clammy. He was eventually moved and reclined on the exam table for period of time with application of cool rags. His was called to drive him home. Referrals Referral Date Details 10/27/2024 10/27/2024, Antonio PT for cervicalia, . Physical Therapy Next Appt Details Follow Up: prn, Reason: Provider Name:Elmira Mckeon, 12/28/2025 09:00:00 AM, [address] [facility] [address] [facility], [address], [place], [place], [id number], Progress Notes * Bryan BRASHER TOMDOB:[birth year] (70 yo M)Acc No.[id number]:10/27/2024 Progress Notes Patient: Bryan VALDIVIA Provider: Elmira Hernandez M.D. :1955 A ge:69 Y S ex:Male Date:10/27/2024 Address:[address] [place] [address] [address] , [id number] Subjective: * Chief Complaints: * 1 . Swollen elbow. * HPI: E lbow/Arm: Presents with complaints of swelling in the back of his elbow for couple days. He recalls no specific injury. He denies pain. He had a similar incident about 15 years ago which responded to aspiration. N mini: He has been having a flareup of neck pain for a few weeks. No radicular symptoms. He notes decreased range of motion. He feels he would benefit from therapy. * ROS: D ERMATOLOGY: no R jeanie. [...] sigmoid diverticulosis.one polyp/ Dr. Nick 01/2014, C-scope/ Opal/ polyps x 2 01/2019. * Hospitalization/Major Diagno stic Procedure: [facility] ER for rt knee pain jun.26, [facility]-total right knee replacement 12/04/12. * Family History: [...] tablet by mouth once daily , Taking Diclofenac Sodium 1 % Gel as directed applied topically Twice a day prn , Taking Abilify 10 MG Tablet 1 tab(s) orally once a day , Taking tiZANidine HCl 4 MG Tablet 1 tab(s) orally Two times a day , Taking Esomeprazole Magnesium 40 MG Capsule Delayed Release 1 cap(s) orally once a day , Taking Rybelsus 3 MG Tablet 1 tab(s) Orally once daily , Taking metFORMIN HCl 500 MG Tablet 1 tab(s) Orally Two times a day , Taking Allopurinol 100 MG Tablet Take 2 tablets by mouth once daily , Taking Tamsulosin HCl 0.4 mg Capsule TAKE ONE CAPSULE BY MOUTH EVERY DAY AT BEDTIME , Taking Crestor 10 MG Tablet 1 tab once a day , Taking HYDROcodone-Acetaminophen 10-325 MG Tablet 1 tab(s) orally every 6 hours prn , Taking Lisinopril 10 MG Tablet 1 tab(s) orally once a day , Taking Cymbalta 60 MG Capsule Delayed Release Particles 1 cap(s) orally once a day , Medication List reviewed and reconciled with the patient * Allergies: N .K.D.A. Objective: * Vitals: W t:255.0, Temp:98.4, BP:100/60, HR:92, Nurse:MM, Ht: 72, BMI:34.58. * Examination: G eneral Examination: General Appearance: N AD. N mini: S light head forward posturing. No bony tenderness of the C-spine. Range of motion is diminished in all ranges.. E xtremities: T here is moderate swelling of the left olecranon bursa. No redness or warmth. Range of motion of the elbow is full.. Assessment: * Assessment: 1. O lecranon bursitis of left elbow - M70.22 (Primary) 2 . C ervicalgia - M54.2 3 . V asovagal syncope - R55 Plan: * Treatment: 2. C ervicalgia Referral To:. Physical Therapy Physical Therapist Reason:Antonio PT for cervicalia 3. V asovagal syncope Notes: Following the office procedure, he had a brief syncopal episode and became clammy. He was eventually moved and reclined on the exam table for period of time with application of cool rags. His was called to drive him home. * Procedure Codes: G 2211 Complex e/m visit add on, DRAIN/INJECT BURSA,HEEL, WRIST, ELBOW ANKLE, OLECRANON BURSA * Follow Up: p rn * Images: Billing Information: * Visit Code: 84242 Office Visit, Est Pt., Level 4. * Procedure Codes: G2211 Complex e/m visit add on. DRAIN/INJECT BURSA,HEEL, WRIST, ELBOW ANKLE, OLECRANON BURSA. * Electronic signature of Elmira Hernandez MD on 10/12/2025 at 02:46 PM EST Sign off status: Pending * Provider: Elmira Hernandez M.D. Date: 12/28/2023 Generated for Cynthia crouch/Alejandra/Miah on: 12/12/2024 02:46 PM EST History and Physical Notes * Examination Category Sub-Category Detail Notes Category Not es General Examination Extremities: There is mod erate swelling of the left olecranon bursa. No redness or warmth. Range of motion of the elbow is full. General Appearance: NAD Neck: Slight head forward posturing. No bony tenderness of the C-spine. Range of motion is diminished in all ranges. Consultation Request Notes Referral Date Referring Provider Referred Provider Not es 10/27/2024 Elmira Hernandez Physical Therapy, . Shamar hogan PT for cervicalia
--- OUTSIDE RECORDS SUMMARY | 2024-12-10 09:00 | XMS_ITS ---
Author Organization [facility] Address [address] [place] [id number] Care Team Providers Care [employer] Floor Layer Name Role Phone Elmira Hernandez Primary Care Provider [phone] Allergies No Known Allergies REASON FOR VISIT elbow swollen Medications Medication SIG (Take, Route, Frequency, Duration) Notes Start Date End Date Status Crestor 10 MG 1 tab once a day Active Lisinopril 10 MG 1 tab(s) orally once a day Active Cymbalta 60 MG 1 cap(s) orally once a day Active Ozempic (0.25 or 0.5 MG/DOSE) 2 MG/3ML 0.25mg Subcutaneous once a week 12/01/2024 Active HYDROcodone-Acetaminophen 10-325 MG 1 tab(s) orally every 6 hours prn 12/03/2024 Active Esomeprazole Magnesium 40 MG 1 cap(s) orally once a day A ctive Rybelsus 3 MG 1 tab(s) Orally once daily Active metFORMIN HCl 500 MG 1 tab(s) Orally Two times a day; Duration: 90 days Active Allopurinol 100 MG Take 2 tablets by mo ut once daily; Duration: 90 Active Tamsulosin HCl 0.4 mg TAKE ONE CAPSULE B Y MOUTH EVERY DAY AT BEDTIME; Duration: 90 Active Abilify 10 MG 1 tab(s) orally once a day Active tiZANidine HCl 4 MG 1 tab(s) orally Two times a day Active ACCUCHECK TEST STRIPS 1 STRIP TEST TWICE A DAY Active Rosuvastatin Calcium 20 MG Take 1 tablet by mouth once daily; Duration: 90 Active Diclofenac Sodium 1 % as directed applie d topically Twice a day prn 08/07/2021 Active Viagra 100 MG 1 tab(s) orally once a day 6 Active Aspirin Adult Low Dose 81 MG 1 tab(s) orally once a day A ctive ACCUCHECK LANCETS 1 2 TIMES A DAY OR A S DIRECTED 12/31/2022 Active ACCUCHECK GLUCOMETER 1 2 TIMES A DAY OR DIRECTED 12/31/2022 Active Vital Signs Blood pressure systolic 118 mm Hg 12/10/19 25 Blood pressure diastolic 64 mm Hg 025 Heart Rate 90 /min 12/10/2024 Height 72 in 12/10/2024 Weight 252 lbs 12/10/2024 BMI 34.17 kg/m2 12/10/2024 Encounters Encounter Location Date Provider Diagnosis [facility] [address] [facility] [address] [place] [id number] 12/10/2024 Elmira Hernandez Olecranon bursitis o f left elbow M70.22 Assessments Encounter Date Diagnosis (ICD Code) Assessment Notes Treatment Notes Treatment Clinical Notes Section Notes 12/10/2024 Olecranon bursitis of left elbow (ICD-10 - M70.22) PROCEDURE: The elbow was prepped with Betadine. Anesthesia is obtained with 1% lidocaine locally. The bursa was then entered with an 18-gauge needle and 10 cc of serosanguineous fluid is aspirated. Bursa then injected with Celstone 6 mg. Elbow wrapped with Coban. He is advised to keep the elbow wrapped for the next 5 days and apply ice 3-4 times per day. Plan Of Treatment Treatment Notes Assessment Notes Olecranon bursitis of left elbow PROCEDU RE: The elbow was prepped with Betadine. Anesthesia is obtained with 1% lidocaine locally. The bursa was then entered with an 18-gauge needle and 10 cc of serosanguineous fluid is aspirated. Bursa then injected with Celstone 6 mg. Elbow wrapped with Coban. Next Appt Details Follow Up: prn, Reason: Provider Name:Elmira Mckeon, 12/28/2025 09:00:00 AM, [address] [facility], [address], [place], [id number], Progress Notes * Bryan BRASHER TOMDOB:[birth year] (70 yo M)Acc No.[id number]:12/10/2024 Progress Notes Patient: Bryan VALDIVIA Provider: Elmira Hernandez M.D. :1955 A ge:69 Y S ex:Male Date:12/10/2024 Address:[address] [place] [address] [address], [place], [id number] Subjective: * Chief Complaints: * 1 . Elbow swollen. * HPI: E lbow/Arm: Kelvin returns with recurrence of the left olecranon bursitis. He again reports no injury nor any site any potential sources of chronic irritation. * ROS: D ERMATOLOGY: no R jeanie. [...] 2 01/2019. * Hospitalization/Major Diagno stic Procedure: [facility] ER for rt knee pain jun.26, [facility]-total right knee replacement 12/04/12. * Family History: [...] 1 tab once a day , Taking Lisinopril 10 MG Tablet 1 tab(s) orally once a day , Taking Cymbalta 60 MG Capsule Delayed Release Particles 1 cap(s) orally once a day , Taking Ozempic (0.25 or 0.5 MG/DOSE) 2 MG/3ML Solution Pen-injector 0.25mg Subcutaneous once a week , Taking HYDROcodone-Acetaminophen 10-325 MG Tablet 1 tab(s) orally every 6 hours prn , Medication List reviewed and reconciled with the patient * Allergies: N .K.D.A. Objective: * Vitals: W t:252, Temp:97.9, BP:118/64, HR:90, Nurse:DINESH, Ht: 72, BMI:34.17. * Examination: E lbow/Arm: E xtremities:There is moderate swelling of the left olecranon bursa. No redness or warmth. Range of motion of the elbow is full.. Assessment: * Assessment: 1. O lecranon bursitis of left elbow - M70.22 (Primary) Plan: * Treatment: * Procedure Codes: G 221 Complex e/m visit add on, DRAIN/INJECT BURSA,HEEL, WRIST, ELBOW ANKLE, OLECRANON BURSA * Follow Up: p rn * Images: Billing Information: * Visit Code: 94733 Office Visit, Est Pt., Level 3. * Procedure Codes: G2211 Complex e/m visit add on. DRAIN/INJECT BURSA,HEEL, WRIST, ELBOW ANKLE, OLECRANON BURSA. * Electronic signature of Elmira Hernandez MD on 10/12/2025 at 02:44 PM EST Sign off status: Pending * Provider: Elmira Hernandez M.D. Date: 0 12/10/2024 Generated for Cynthia crouch/Alejandra/Hyunransmitting on: 12/12/2024 02:44 PM EST History and Physical Notes * Examination Category Sub-Category Detail Notes Category Not es Elbow/Arm Extremities:The re is moderate swelling of the left olecranon bursa. No redness or warmth. Range of motion of the elbow is full..
--- OUTSIDE RECORDS SUMMARY | 2024-12-24 04:15 | XMS_ITS ---
Author Organization [facility] Address [address] [place] [id number] Care Team Providers Care Rigging Man Name Role Phone Elmira Hernandez Primary Care Provider [phone] Allergies No Known Allergies Results Component Value Reference Range Notes CBC Fingerstick (in house) Reviewed date:12/28/2024 02:15:20 PM Interpretation:wbc 11.7 Performing Lab: Notes/Report: wbc 11.7 wbc 11.7 3.5 - 10 lym 15.9 15 - 50 mid 5.1 2 - 15 gran 79.0 35 - 80 rbc 4.97 3.5 - 5.5 hgb 14.7 11.5 - 16.5 hct 44.0 35 - 55 mcv 88.5 75 - 100 mch 29.7 25 - 35 mchc 33.5 31 - 38 plat 227 100 - 400 Glycohemoglobin A1c (in hous e) Reviewed date:12/28/2024 02:15:20 PM Interpretation:6.0% Performing Lab: Notes/Report: 6.0% glycohemoglobin 6.0% 5 - 6.5 % P-Comprehensive Metabolic Pa poly (CMP) Reviewed date:12/28/2024 02:15:19 PM Interpretation:Na 134, cl 96, gluc 110 Performing Lab: Notes/Report: Test performed by [employer], [facility] , [address], [place] [address] Bruno Milner MD, Fryline Attendant CLIA: [id number] Sodium 134 135-145 mmol/L Potassium 4.6 3.5-5.3 mmol/L Chloride 96 97-108 mmol/L CO2 23 22-32 mmol/L Glucose 110 65-99 mg/dL BUN 12 8-23 mg/dL Creatinine 0.90 0.70-1.30 mg/dL Calcium 9.5 8.6-10.4 mg/dL eGFR by Creatinine 92 >59 mL/min/1.73m2 Protein 7.6 6.0-8.3 g/dL Albumin 4.4 3.5-5.3 g/dL Alkaline Phosphatase 65 40-129 IU/L ALT (SGPT) 16 <5-55 IU/L AST (SGOT) 22 <5-46 IU/L Bilirubin, Total 0.4 <0.2-1.2 mg/dL A/G Ratio 1.4 1.1-2.5 P-Microalbumin/Creatinine, R andom Urine Sample Reviewed date:12/28/2024 02:15:19 PM Interpretation:Normal Performing Lab: Notes/Report: Test performed by [employer], [address] , [address], [place] [address] Bruno Milner MD, Fryline Attendant CLIA: [id number] Albumin/Creatinine Ratio, Urine 10 0-30 ug/m g Microalbumin, Urine, Random 1.2 Creatinine, Urine 115.0 Reason For Referral Reason recurring oleconon b ursitis. He would like to see Dr. Reinoso Diagnosis 1 Olecranon bursitis, left (M70.22) [facility] Referring Provider First Name Elmira Aguirre Referring Provider Last Name David Referring Provider Speciality Critical [facility] hospital Referred Provider Sanjuanita Reinoso Referred Provider Specialty Orthopedic S urgery General Notes Anya Driscoll 11:44:12 AM > faxed to [facility] Referral Priority Routine REASON FOR VISIT 6 month check and AWV, Due for Diabetic Eye Exam Medications Medication SIG (Take, Route, Frequency, Duration) Notes Start Date End Date Status Tamsulosin HCl 0.4 mg TAKE ONE CAPSULE B Y MOUTH EVERY DAY AT BEDTIME; Duration: 90 Active Allopurinol 100 MG Take 2 tablets by ne ut once daily; Duration: 90 Active metFORMIN HCl 500 MG 1 tab(s) Orally Two times a day; Duration: 90 days Active Rybelsus 3 MG 1 tab(s) Orally once daily 07/02/2024 Active Abilify 10 MG 1 tab(s) orally once a day Not-Taking Cymbalta 60 MG 1 cap(s) orally once a day Active ACCUCHECK TEST STRIPS 1 STRIP TEST TWICE A DAY Active Diclofenac Sodium 1 % as directed applie d topically Twice a day prn 08/07/2021 Active Rosuvastatin Calcium 20 MG Take 1 tablet by mouth once daily; Duration: 90 Active HYDROcodone-Acetaminophe n 10-325 MG 1 tab(s) orally every 6 hours prn Active ACCUCHECK LANCETS 1 2 TIMES A DAY OR A S DIRECTED 12/31/2022 Active Aspirin Adult Low Dose 81 MG 1 tab(s) orally once a day Active ACCUCHECK GLUCOMETER 1 2 TIMES A DAY OR DIRECTED 12/31/2022 Active Viagra 100 MG 1 tab(s) orally once a day 01/31/2016 Active Esomeprazole Magnesium 40 MG 1 cap(s) orally once a day Active Lisinopril 10 MG 1 tab(s) orally once a day Active metFORMIN HCl 500 MG 1 tab(s) Orally Two times a day Active Ozempic (0.25 or 0.5 MG/DOSE) 2 MG/3ML 0.25mg Subcutaneous once a week 12/01/2024 Active tiZANidine HCl 4 MG 1 tab(s) orally Two times a day Active Allopurinol 100 MG 2 tab(s) orally once daily Active Lisinopril 10 MG 1 tab(s) orally once a day Active Crestor 10 MG 1 tab once a day Active Crestor 10 MG 1 tab once a day Active Cymbalta 60 MG 1 cap(s) orally once a day Active Vital Signs Blood pressure systolic 120 mm Hg 12/24/19 25 Blood pressure diastolic 86 mm Hg 025 Heart Rate 74 /min 12/24/2024 Height 72 in 12/24/2024 Weight 251.0 lbs 12/24/2024 BMI 34.04 kg/m2 12/24/2024 Encounters Encounter Location Date Provider Diagnosis [facility] [address] [facility] [address] [place], [place] [id number] 12/24/2024 Elmira Hernandez Adult general medica l examination Z00.00 ; Dyslipidemia E78.5 ; Essential hypertension I10 ; Type 2 diabetes mellitus without complication, without long-term current use of insulin E11.9 ; Hyperuricemia E79.0 ; Cervicalgia M54.2 ; Chronic pain syndrome G89.4 ; Depression F32.9 ; GERD (gastroesophageal reflux disease) K21.9 ; BPH (benign prostatic hyperplasia) N40.0 ; Nausea R11.0 ; Olecranon bursitis, left M70.22 and BMI 34.0-34.9,adult Z68.34 Assessments Encounter Date Diagnosis (ICD Code) Assessment Notes Treatment Notes Treatment Clinical Notes Section Notes 12/24/2024 Adult general medical examination (ICD-10 - Z00.00) Patient instructed to return to office Annually for Annual Wellness Visits to include annual screenings of Pain assessment, Functional Ability assessment, Cognitive Ability assessment, Fall Risk assessment, Depression screening and Bladder control screening. 12/24/2024 Dyslipidemia (ICD-10 - E78.5) 12/24/2024 Essential hypertension (ICD-10 - I10) 12/24/2024 Type 2 diabetes mellitus without complication, without long-term current use of insulin (ICD-10 - E11.9) Reinforced diet and weight loss 12/24/2024 Hyperuricemia (ICD-10 - E79.0) 12/24/2024 Cervicalgia (ICD-10 - M54.2) 12/24/2024 Chronic pain syndrome (ICD-10 - G89.4) 12/24/2024 Depression (ICD-10 - F32.9) 12/24/2024 GERD (gastroesophageal reflux disease) (ICD-10 - K21.9) 12/24/2024 BPH (benign prostatic hyperplasia) (ICD-10 - N40.0) 12/24/2024 Nausea (ICD-10 - R11.0) Nausea is likely related to the semaglutide that he started taking. Advised to discontinue this medication until his symptoms are resolved. 12/24/2024 Olecranon bursitis, left (ICD-10 - M70.22) 12/24/2024 BMI 34.0-34.9,adult (ICD-10 - Z68.34) Plan Of Treatment Medication Medication Name Sig Start Date Stop Date Notes Cymbalta 60 MG 1 cap(s) orally once a day HYDROcodone-Acetaminophen 10 -325 MG 1 tab(s) orally every 6 hours prn Esomeprazole Magnesium 40 MG 1 cap(s) orally once a day Lisinopril 10 MG 1 tab(s) orally once a day metFORMIN HCl 500 MG 1 tab(s) Orally Two times a day tiZANidine HCl 4 MG 1 tab(s) orally Two times a day Allopurinol 100 MG 2 tab(s) orally once daily Crestor 10 MG 1 tab once a day Treatment Notes Assessment Notes Adult general medical examination Patien t instructed to return to office Annually for Annual Wellness Visits to include annual screenings of Pain assessment, Functional Ability assessment, Cognitive Ability assessment, Fall Risk assessment, Depression screening and Bladder control screening. Type 2 diabetes mellitus wit hout complication, without long-term current use of insulin Reinforced diet and weight loss Nausea Nausea is likely rel ated to the semaglutide that he started taking. Advised to discontinue this medication until his symptoms are resolved. Referrals Referral Date Details 12/24/2024 12/24/2024, recurrin g oleconon bursitis. He would like to see Dr. Reinoso, Sanjuanita Reinoso Next Appt Details Follow Up: 6 Months, Reason: Provider Name:Elmira Mckeon, 12/28/2025 09:00:00 AM, [address] [facility] [address] [facility], [address], [place], [place], [id number], Progress Notes * Bryan BRASHER RENAEDOB:[birth year] (70 yo M)Acc No.[id number]:12/24/2024 Annual Wellness Visit Patient: Bryan VALDIVIA Provider: Elmira Hernandez M.D. :1955 A ge:69 Y S ex:Male Date:12/24/2024 Address:[address] [place] [address] [address] , [id number] Subjective: * Chief Complaints: * 1 . 6 month check and AWV. 2. Due for Diabetic Eye Exam. * HPI: H PI: Patient is here today for a scheduled 6 month check up and?a Medicare Annual Wellness Visit. G astroenterology: States he has not been feeling well for couple weeks with nausea, decreased appetite, and malaise. No abdominal pain or change in his bowel habits. He thought it was related to a broken tooth which he had extracted 2 days ago. On further questioning, he tells me he started taking semaglutide injections which his son had obtained from an online provider. He does not know the dose. E lbow/Arm: He has had recurrence of his olecranon bursitis. This has now been aspirated twice and keeps coming back. P sychology: He quit taking Abilify a few months ago and feels he is doing well with the Cymbalta alone. * ROS: O PTHALMOLOGY: Negative for d enies vision issues. * Medical History: D epression, Esophageal reflux, [...] ER for rt knee pain jun.26, [facility]-total right knee replacement 12/04/12. * Family History: [...] topically Twice a day prn , Taking tiZANidine HCl 4 MG Tablet [...] orally every 6 hours prn , Not-Taking Abilify 10 MG Tablet 1 tab(s) orally once a day , Medication List reviewed and reconciled with the patient * Allergies: N .K.D.A. Objective: * Vitals: W t:251.0, Temp:98.5, BP:120/86, HR:74, O2 Sat:90% on RA, Nurse:SUN, Ht: 72, BMI:34.04. * Examination: G eneral Examination: General Appearance: N AD. O ral cavity: T he bed of the extracted tooth appears to be healing well. No gum swelling or drainage. H eart: R SR. L ungs: c lear to auscultation. A bdomen: obese, soft, not distended, nontender. E xtremities: n o leg edema. * Physical Examination: G ENERAL: Pain Assessment: P ain level: 5, on a scale of 0-10 (with 10 being extreme pain). F unctional Status Assessment: P atient response to question of how often physical health interferes with daily activities: . Almost never Able to perform ADLs-including meal preparation, grocery shopping, housework, laundry, taking medications or handling finances. Cognitive Status: alert and oriented. Ambulation Status: Fully ambulatory . F all Risk Assessment: I ndependant in ambulation, adequate lighting in home. Patient has NOT fallen or had trouble walking within the past 12 months. D epression Screening: Jacquelyn enies depressed mood or anxiety. Describes emotional health as: calm. B ladder Control Screening: inocencio oliveira. Assessment: * Assessment: 1. A dult general medical examination - Z00.00 (Primary) 2 . D yslipidemia - E78.5 3 . E ssential hypertension - I10 4 . T ype 2 diabetes mellitus without complication, without long-term current use of insulin - E11.9 5 . H yperuricemia - E79.0 6 . C ervicalgia - M54.2 7 . C hronic pain syndrome - G89.4 8 . D epression - F32.9 9 . G ERD (gastroesophageal reflux disease) - K21.9 1 0. B PH (benign prostatic hyperplasia) - N40.0 1 1. N ausea - R11.0 1 2. O lecranon bursitis, left - M70.22 1 3. B AK 34.0-34.9,adult - Z68.34 Plan: * Treatment: Value Reference Range A lbumin/Creatinine Ratio, Urine 10 0-30 - ug /mg * C reatinine, Urine 115.0 - mg/dL * M icroalbumin, Urine, Random 1.2 - mg/dL * Elmira Hernandez 12/28/2024 2 :15:06 PM >See phone encounter Notes:Patient instructed to return to office Annually for Annual Wellness Visits to include annual screenings of Pain assessment, Functional Ability assessment, Cognitive Ability assessment, Fall Risk assessment, Depression screening and Bladder control screening.??2.?Dyslipidemia? Refill Crestor Tablet, 10 MG, 1 tab, once a day, 90, Refills 1.??3.?Essential hypertension? Refill Lisinopril Tablet, 10 MG, 1 tab(s), orally, once a day, 90, Refills 1.?LAB: P-Comprehensive Metabolic Panel (CMP) (Collection Date & Time - 12/24/2024 08:43 AM)?Na 134, cl 96, gluc 110* Value Reference Range A /G Ratio 1.4 1.1-2.5 - * A lbumin 4.4 3.5-5.3 - g/dL * A lkaline Phosphatase 65 40-129 - IU/L * A LT (SGPT) 16 <5-55 - IU/L * A ST (SGOT) 22 <5-46 - IU/L * B ilirubin, Total 0.4 <0.2-1.2 - mg/dL * B UN 12 8-23 - mg/dL * C alcium 9.5 8.6-10.4 - mg/dL * C hloride 96 L 97-108 - mmol/L * C O2 23 22-32 - mmol/L * C reatinine 0.90 0.70-1.30 - mg/dL * G lucose 110 H 65-99 - mg/dL * P otassium 4.6 3.5-5.3 - mmol/L * S odium 134 L 135-145 - mmol/L * P rotein 7.6 6.0-8.3 - g/dL * e GFR by Creatinine 92 >59 - mL/min/1.73m2 * Elmira Hernandez 12/28/2024 2 :15:06 PM >See phone encounter ?LAB: CBC Fingerstick (in house) (Collection Date & Time - 12/24/2024)?wbc 11.7* Value Reference Range w bc 11.7 3.5 - 10 * l ym 15.9 15 - 50 * m id 5.1 2 - 15 * g ran 79.0 35 - 80 * r bc 4.97 3.5 - 5.5 * h gb 14.7 11.5 - 16.5 * h ct 44.0 35 - 55 * m cv 88.5 75 - 100 * m ch 29.7 25 - 35 * m chc 33.5 31 - 38 * p lat 227 100 - 400 * Vickie Centeno 12/24/2024 9:57:3 1 AM > Elmira Hernandez 12/28/2024 2:15:06 PM >See phone encounter 4.?Type 2 diabetes mellitus without complication, without long-term current use of insulin? Refill metFORMIN HCl Tablet, 500 MG, 1 tab(s), Orally, Two times a day, 180 Tablet, Refills 1.?LAB: Glycohemoglobin A1c (in house) (Collection Date & Time - 12/24/2024)? 6.0%* Value Reference Range g lycohemoglobin 6.0% 5 - 6.5 % * Vickie Centeno 12/24/2024 9:59:1 3 AM > Elmira Hernandez 12/28/2024 2:15:06 PM >See phone encounter Notes: Reinforced diet and weight loss??5.?Hyperuricemia? Refill Allopurinol Tablet, 100 MG, 2 tab(s), orally, once daily, 180, Refills 1.??6.?Cervicalgia? Refill tiZANidine HCl Tablet, 4 MG, 1 tab(s), orally, Two times a day, 180, Refills 1.??7.?Chronic pain syndrome? Continue HYDROcodone-Acetaminophen Tablet, 10-325 MG, 1 tab(s), orally, every 6 hours prn, Refills 0.??8.?Depression? Refill Cymbalta Capsule Delayed Release Particles, 60 MG, 1 cap(s), orally, once a day, 90, Refills1.??9.?GERD (gastroesophageal reflux disease)? Refill Esomeprazole Magnesium Capsule Delayed Release, 40 MG, 1 cap(s), orally, once a day, 90, Refills 1.??10.?Nausea? Notes: Nausea is likely related to the semaglutide that he started taking. Advised to discontinue this medication until his symptoms are resolved.?? 11.?Olecranon bursitis, left? Referral To:Sanjuanita Reinoso??Orthopedic Surgery ?Reason:recurring oleconon bursitis. He would like to see Dr. Reinoso * Procedure Codes: G 0439 ANNUAL WELLNESS VST; PPS SUBSQT VST, 82886 GLYCATED HEMOGLOBIN TEST, Modifiers: QW , G0444 ANNUAL DEPRESSION SCREENING 15 MIN, 1090F PRES/ABSN URINE INCON ASSESS, 3288F FALL RISK ASSESSMENT DOCD, 1170F FXNL STATUS ASSESSED, 1159F MED LIST DOCD IN RCRD, 1003F LEVEL OF ACTIVITY ASSESS, 1036F TOBACCO NON-USER, 3017F COLORECTAL CA SCREEN DOC REV, 15078 CBC WITH AUTO DIFF, 1125F AMNT PAIN NOTED PAIN PRSNT, G8510 NEG SCR Depression PT NOT ELIG F/U/PLN DOC, 3044F HG A1C LEVEL LT 7.0%, G8752 MOST RECENT SYSTOLIC BP < 140MM HG, G8754 MOST RECENT DIASTOLIC BP < 90MM HG * Preventive Medicine: Counseling: E motional health: P atient encouraged to try connecting with family or friends to boost mood. B ladder control: M ethods of controlling or managing leakage of urine discussed. E xercise: P atient advised to start, increase or maintain level of exercise/physical activity. I njury prevention: F all prevention discussed. Discussed need for cane/walker. Potential trip hazards discussed. Immunizations: P neumococcal r ecommended. I nfluenza u p to date. Screening / Special Tests: C olonoscopy , diverticulosis/unremarkable, repeat 5 years. P SA , normal. D iabetic Retinal Eye Exam r ecommended today. N ephrology History g fr and urine m/a ordered today. * Follow Up: 6 Months * Images: Billing Information: * Visit Code: 47356 Office Visit, Est Pt., Level 3. Modifiers: 25 * Procedure Codes: G0439 ANNUAL WELLNESS VST; PPS SUBSQT VST. 57066 GLYCATED HEMOGLOBIN TEST. Modifiers: QW G0444 ANNUAL DEPRESSION SCREENING 15 MIN. 1090F PRES/ABSN URINE INCON ASSESS. 3288F FALL RISK ASSESSMENT DOCD. 1170F FXNL STATUS ASSESSED. 1159F MED LIST DOCD IN RCRD. 1003F LEVEL OF ACTIVITY ASSESS. 1036F TOBACCO NON-USER. 3017F COLORECTAL CA SCREEN DOC REV. 59343 CBC WITH AUTO DIFF. 1125F AMNT PAIN NOTED PAIN PRSNT. G8510 NEG SCR Depression PT NOT ELIG F/U/PLN DOC. 3044F HG A1C LEVEL LT 7.0%. G8752 MOST RECENT SYSTOLIC BP < 140MM HG. G8754 MOST RECENT DIASTOLIC BP < 90MM HG. * Electronic signature of Elmira Hernandez MD on 10/12/2025 at 02:46 PM EST Sign off status: Pending * Provider: Elmira Hernandez M.D. Date: 0 12/24/2024 Generated for Cynthia crouch/Alejandra/Miah on: 12/12/2024 02:46 PM EST History and Physical Notes * HPI (History of Present Illness) Category Sub-Category Detail Notes Category Not es Gastroenterology On further questioning, he tells me he started taking semaglutide injections which his son had obtained from an online provider. He does not know the dose. HPI Patient is here today for a scheduled 6 month check up and a Medicare Annual Wellness Visit Physical Examination Category Sub-Category Detail Notes Section Note s GENERAL Pain Assessment: Pain level: 5, on a scale of 0-10 (with 10 being extreme pain) Functional Status Assessment: Patient response to question of how often physical health interferes with daily activities: . Almost never Able to perform ADLs-including meal preparation, grocery shopping, housework, laundry, taking medications or handling finances. Cognitive Status: alert and oriented. Ambulation Status: Fully ambulatory Fall Risk Assessment: Independant in amb ulation, adequate lighting in home. Patient has NOT fallen or had trouble walking within the past 12 months Depression Screening: Denies depressed m ood or anxiety. Describes emotional health as: calm Bladder Control Screening: small problem s Examination Category Sub-Category Detail Notes Category Not es General Examination Heart: RSR Lungs: clear to auscultatio n Abdomen: obese, soft, not dis tended, nontender Extremities: no leg edema General Appearance: NAD Oral cavity: The bed of the extra cted tooth appears to be healing well. No gum swelling or drainage Consultation Request Notes Referral Date Referring Provider Referred Provider Not es 12/24/2024 Elmira Hernandez Kooros recurrin g oleconon bursitis. He would like to see Dr. Reinoso
--- OUTSIDE RECORDS SUMMARY | 2025-03-17 05:45 | XMS_ITS ---
Author Organization [facility] Address [address] [place] [phone] Care Team Providers Care Director Of Strategic Initiatives Name Role Phone Elmira Hernandez Primary Care Provider Marce Temo Unavailable [phone] Allergies No Known Allergies Results Component Value Reference Range Notes CBC Fingerstick (in house) Reviewed date:03/17/2025 12:29:20 PM Interpretation: Performing Lab: Notes/Report: wbc 11.0 3.5 - 10 lym 17.1% 15 - 50 mid 5.3% 2 - 15 gran 77.6% 35 - 80 rbc 4.47 3.5 - 5.5 hgb 13.2 11.5 - 16.5 hct 40.1 35 - 55 mcv 89.8 75 - 100 mch 29.6 25 - 35 mchc 33.0 31 - 38 plat 225 100 - 400 REASON FOR VISIT congestion ,coughing Medications Medication SIG (Take, Route, Frequency, Duration) Notes Start Date End Date Status Lisinopril 10 MG 1 tab(s) orally once a day Active Crestor 10 MG 1 tab once a day Active tiZANidine HCl 4 MG 1 tab(s) orally Two times a day Active Ozempic (0.25 or 0.5 MG/DOSE) 2 MG/3ML 0.25mg Subcutaneous once a week 12/01/2024 Active Cymbalta 60 MG 1 cap(s) orally once a day Active metFORMIN HCl 500 MG 1 tab(s) Orally Two times a day; Duration: 90 days Active Allopurinol 100 MG Take 2 tablets by [facility] once daily; Duration: 90 Active Zithromax Z-Raz 250 MG as directed Orall y once daily; Duration: 5 days 03/17/2025 Active Lisinopril 10 MG 1 tab(s) orally once a day Active Crestor 10 MG 1 tab once a day Active ACCUCHECK TEST STRIPS 1 STRIP TEST TWICE A DAY Active ACCUCHECK GLUCOMETER 1 2 TIMES A DAY OR DIRECTED 12/31/2022 Active Diclofenac Sodium 1 % as directed applie d topically Twice a day prn 08/07/2021 Active Rosuvastatin Calcium 20 MG Take 1 tablet by mouth once daily; Duration: 90 Active Rybelsus 3 MG 1 tab(s) Orally once daily 4 Active Viagra 100 MG 1 tab(s) orally once a day 6 Active HYDROcodone-Acetaminophen 10-325 MG 1 tab(s) orally every 6 hours prn; Duration: 30 day(s) 03/08/2025 Active ACCUCHECK LANCETS 1 2 TIMES A DAY OR A S DIRECTED 12/31/2022 Active Aspirin Adult Low Dose 81 MG 1 tab(s) orally once a day A ctive Allopurinol 100 MG 2 tab(s) orally once daily Active metFORMIN HCl 500 MG 1 tab(s) Orally Two times a day Active Cymbalta 60 MG 1 cap(s) orally once a day Active Esomeprazole Magnesium 40 MG 1 cap(s) orally once a day A ctive Tamsulosin HCl 0.4 mg TAKE ONE CAPSULE B Y MOUTH EVERY DAY AT BEDTIME; Duration: 90 Active Problems Problem Type SNOMED Code ICD Code Onset Dates Problem Status W/U Status Risk Notes Problem Type 2 diabetes mellitus with other specified complication (E11.69) Active confirmed Vital Signs Blood pressure systolic 122 mm Hg 03/17/20 25 Blood pressure diastolic 80 mm Hg 025 Heart Rate 102 /min 03/17/2025 Height 72 in 03/17/2025 Weight 251 lbs 03/17/2025 BMI 34.04 kg/m2 03/17/2025 Encounters Encounter Location Date Provider Diagnosis [facility] [place] [address] [place], [place] [phone] 03/17/2025 [facility] [place] Acute URI J06.9 ; Ty pe 2 diabetes mellitus with other specified complication E11.69 and BMI 34.0-34.9,adult Z68.34 Assessments Encounter Date Diagnosis (ICD Code) Assessment Notes Treatment Notes Treatment Clinical Notes Section Notes 03/17/2025 Acute URI (ICD-10 - J06.9) 03/17/2025 Type 2 diabetes mellitus with other specified complication (ICD-10 - E11.69) 03/17/2025 BMI 34.0-34.9,adult (ICD-10 - Z68.34) Plan Of Treatment Medication Medication Name Sig Start Date Stop Date Notes Zithromax Z-Raz 250 MG as directed Orall y once daily; Duration: 5 days 03/17/2025 Next Appt Details Follow Up: via phone to repo rt progress, Reason: Provider Name:Elmira Mckeon, 12/28/2025 09:00:00 AM, [address] [facility] [address] [facility], [address], [place], [place], [phone], Progress Notes * Bryan BRASHER TOMDOB:[birth year] (70 yo M)Acc No.[id number]:03/17/2025 Progress Notes Patient: Bryan VALDIVIA Provider: Juve Zheng M.D. :1955 A ge:70 Y S ex:Male Date:03/17/2025 Address:[address] [place] [address], [facility], [id number] Pcp:Elmira Hernandez Subjective: * Chief Complaints: * 1 . Congestion ,coughing. * HPI: E NT/respiratory: 70 year old male presents with c/o cough f or f ew weeks P t complains of greenish yellow sputum production cough that started over the weekend. Associated with chest and nasal congestion. * ROS: D ERMATOLOGY: no R jeanie. n o H brandon. G ASTROENTEROLOGY: no N ausea. n o V omiting. U ROLOGY: no D ifficulty urinating. n o B lood in urine. * Medical History: D epression, Esophageal Rreflux, Hyperlipidemia, Gout, E.D, Diverticulosis by colonoscopy 2013, Hypertension. * Surgical History: R T Knee x 3 , Throat Polyps Removed , nasal surgery , colonoscopy 2004, total right knee replacement 12/04/2012, Colonoscopy/ sigmoid diverticulosis.one polyp/ Dr. Nick 01/2014, C-scope/ Opal/ polyps x 2 01/2019. * Hospitalization/Major Diagno stic Procedure: H ER for rt knee pain 06/2009, [facility]-total right knee replacement 12/04/2012. * Family History: F ather: . M [...] topically Twice a day prn , Taking Rybelsus 3 MG Tablet 1 tab(s) Orally once daily , Taking metFORMIN HCl 500 MG Tablet 1 tab(s) Orally Two times a day , Taking Allopurinol 100 MG Tablet Take 2 tablets by mouth once daily , Taking Crestor 10 MG Tablet 1 tab once a day , Taking Lisinopril 10 MG Tablet 1 tab(s) orally once a day , Taking Cymbalta 60 MG Capsule Delayed Release Particles 1 cap(s) orally once a day , Taking Ozempic (0.25 or 0.5 MG/DOSE) 2 MG/3ML Solution Pen-injector 0.25mg Subcutaneous once a week , Taking Crestor 10 MG Tablet 1 tab once a day , Taking Lisinopril 10 MG Tablet 1 tab(s) orally once a day , Taking tiZANidine HCl 4 MG Tablet 1 tab(s) orally Two times a day , Taking Allopurinol 100 MG Tablet 2 tab(s) orally once daily , Taking metFORMIN HCl 500 MG Tablet 1 tab(s) Orally Two times a day , Taking Esomeprazole Magnesium 40 MG Capsule Delayed Release 1 cap(s) orally once a day , Taking Cymbalta 60 MG Capsule Delayed Release Particles 1 cap(s) orally once a day , Taking Tamsulosin HCl 0.4 mg Capsule TAKE ONE CAPSULE BY MOUTH EVERY DAY AT BEDTIME , Taking HYDROcodone- Acetaminophen 10-325 MG Tablet 1 tab(s) orally every 6 hours prn , Discontinued Abilify 10 MG Tablet 1 tab(s) orally once a day , Medication List reviewed and reconciled with the patient * Allergies: N .K.D.A. Objective: * Vitals: W t: 251, Temp: 98.0, BP: 122/80, HR: 102, O2 Sat: 91% on RA, Nurse: ariane, Ht: 72, BMI:34.04. * Examination: E NT/Respiratory: General Appearance: N AD. O ral cavity : e rythema without exudate on pharynx. H eart : R RR, normal S1 S2. L ungs: c lear to auscultation bilaterally. Assessment: * Assessment: 1. A cute URI - J06.9 (Primary) 2 . T ype 2 diabetes mellitus with other specified complication - E11.69 3 . B [place] 34.0-34.9,adult - Z68.34 Plan: * Treatment: Value Reference Range w bc 11.0 3.5 - 10 * l ym 17.1% 15 - 50 * m id 5.3% 2 - 15 * g ran 77.6% 35 - 80 * r bc 4.47 3.5 - 5.5 * h gb 13.2 11.5 - 16.5 * h ct 40.1 35 - 55 * m cv 89.8 75 - 100 * m ch 29.6 25 - 35 * m chc 33.0 31 - 38 * p lat 225 100 - 400 * Eliza Lawrence 03/17/2025 11:04: 40 AM > Provider reviewed results while patient in office. * Procedure Codes: G 2211 Complex e/[place], [address] CBC WITH AUTO DIFF, 10543 CAPILLARY BLOOD DRAW, G8752 MOST RECENT SYSTOLIC BP < 140MM HG, G8754 MOST RECENT DIASTOLIC BP < 90MM HG * Follow Up: v ia phone to report progress * Images: Billing Information: * Visit Code: 51373 Office Visit, Est Pt., Level 3. * Procedure Codes: G2211 Complex e/[place]. [address] CBC WITH AUTO DIFF. 15398 CAPILLARY BLOOD DRAW. G8752 MOST RECENT SYSTOLIC BP < 140MM HG. G8754 MOST RECENT DIASTOLIC BP < 90MM HG. * Electronic signature of Jyoti Zheng MD on 10/12/2025 at 02:45 PM EST Sign off status: Pending * Provider: Juve Zheng M.D. Date: 0 03/17/2025 Generated for Cynthia crouch/Alejandra/Avelinaitting on: 12/12/2024 02:45 PM EST History and Physical Notes * HPI (History of Present Illness) Category Sub-Category Detail Notes Category Not es ENT/respiratory cough Pt complains of greenish yellow sputum production cough that started over the weekend. Associated with chest and nasal congestion Examination Category Sub-Category Detail Notes Category Not es ENT/Respiratory Oral cavity : erythema without exudate on pharynx Heart : RRR, normal S1 S2 Lungs: clear to auscultatio n bilaterally General Appearance: NAD
--- OUTSIDE RECORDS SUMMARY | 2025-04-01 06:30 | XMS_ITS ---
Author Organization [facility] Address [address] [place] [id number] Care Team Providers Care Biodiesel Processing Technician Name Role Phone Elmira Hernandez Primary Care Provider Marce Temo Unavailable [phone] Allergies No Known Allergies Results Component Value Reference Range Notes CBC Fingerstick (in house) Reviewed date:04/01/2025 12:25:18 PM Interpretation: Performing Lab: Notes/Report: wbc 9.7 3.5 - 10 lym 21.8% 15 - 50 mid 6.0% 2 - 15 gran 72.2% 35 - 80 rbc 4.76 3.5 - 5.5 hgb 14.0 11.5 - 16.5 hct 42.1 35 - 55 mcv 88.3 75 - 100 mch 29.3 25 - 35 mchc 33.2 31 - 38 plat 263 100 - 400 REASON FOR VISIT drainage,coughing Medications Medication SIG (Take, Route, Frequency, Duration) Notes Start Date End Date Status Allopurinol 100 MG 2 tab(s) orally once daily Active metFORMIN HCl 500 MG 1 tab(s) Orally Two times a day Active Esomeprazole Magnesium 40 MG 1 cap(s) orally once a day A ctive Cymbalta 60 MG 1 cap(s) orally once a day Active tiZANidine HCl 4 MG 1 tab(s) orally Two times a day Active Lisinopril 10 MG 1 tab(s) orally once a day Active Cymbalta 60 MG 1 cap(s) orally once a day Active Ozempic (0.25 or 0.5 MG/DOSE) 2 MG/3ML 0.25mg Subcutaneous once a week 12/01/2024 Active Crestor 10 MG 1 tab once a day Active Lisinopril 10 MG 1 tab(s) orally once a day Active Diclofenac Sodium 1 % as directed applie d topically Twice a day prn 08/07/2021 Active Rybelsus 3 MG 1 tab(s) Orally once daily 4 Active metFORMIN HCl 500 MG 1 tab(s) Orally Two times a day; Duration: 90 days Active Allopurinol 100 MG Take 2 tablets by [facility] once daily; Duration: 90 Active Crestor 10 MG 1 tab once a day Active Aspirin Adult Low Dose 81 MG 1 tab(s) orally once a day A ctive ACCUCHECK LANCETS 1 2 TIMES A DAY OR A S DIRECTED 12/31/2022 Active ACCUCHECK GLUCOMETER 1 2 TIMES A DAY OR DIRECTED 12/31/2022 Active ACCUCHECK TEST STRIPS 1 STRIP TEST TWICE A DAY Active Rosuvastatin Calcium 20 MG Take 1 tablet by mouth once daily; Duration: 90 Active Loratadine 10 MG 1 tablet Orally Once a day; Duration: 30 day(s) 04/01/2025 Active Fluticasone Propionate 50 MCG/ACT 1 spray in each nostril Nasally once daily 04/01/2025 Active Viagra 100 MG 1 tab(s) orally once a day 6 Active HYDROcodone-Acetaminophen 10-325 MG 1 tab(s) orally every 6 hours prn; Duration: 30 day(s) 03/08/2025 Active Tamsulosin HCl 0.4 mg TAKE ONE CAPSULE B Y MOUTH EVERY DAY AT BEDTIME; Duration: 90 Active Vital Signs Blood pressure systolic 130 mm Hg 04/01/20 25 Blood pressure diastolic 90 mm Hg 025 Heart Rate 87 /min 04/01/2025 Height 72 in 04/01/2025 Weight 249.4 lbs 04/01/2025 BMI 33.82 kg/m2 04/01/2025 Encounters Encounter Location Date Provider Diagnosis [facility] [address] [place], [place] [id number] 04/01/2025 Temo Zheng Acute rhiniti s J00 Assessments Encounter Date Diagnosis (ICD Code) Assessment Notes Treatment Notes Treatment Clinical Notes Section Notes 04/01/2025 Acute rhinitis (ICD-10 - J00) Plan Of Treatment Medication Medication Name Sig Start Date Stop Date Notes Loratadine 10 MG 1 tablet Orally Once a day; Duration: 30 day(s) 04/01/2025 Fluticasone Propionate 50 MCG/ACT 1 spray in each nostril Nasally once daily 04/01/2025 Next Appt Details Follow Up: via phone to repo rt progress, Reason: Provider Name:Elmira Mckeon, 12/28/2025 09:00:00 AM, [address] [facility] [address], [place], [place], [phone], Progress Notes * Bryan BRASHERDOB:[birth year] (70 yo M)Acc No.[id number]:04/01/2025 Progress Notes Patient: Bryan VALDIVIA Provider: Juve Zheng M.D. :1955 A ge:70 Y S ex:Male Date:04/01/2025 [address] [facility] [id number] Pcp:Elmira Hernandez Subjective: * Chief Complaints: * 1 . Drainage,coughing. * HPI: E NT/respiratory: 70 year old male presents with c/o cough g reenish yellow sputum production. Pt states he has had drainage and cough for a couple weeks. Pt states the production is worse in the mornings. Pt states he has finished the z raz. He is about 85% better after taking Zithromax. c/o post nasal drainage y ellow green. Denies : sore throat. D enies : Fever. D enies : ear pain. * ROS: D ERMATOLOGY: no R jeanie. n o H brandon. G ASTROENTEROLOGY: no N ausea. n o V omiting. n o D iarrhea.? U ROLOGY: no D ifficulty urinating. n [...] ER for rt knee pain 06/2009, [facility]-total right knee replacement 12/04/2012. * Family History: [...] orally every 6 hours prn , Discontinued Zithromax Z- Raz 250 MG Tablet as directed Orally once daily , Medication List reviewed and reconciled with the patient * Allergies: N .K.D.A. Objective: * Vitals: W t: 249.4, Temp: 98.1, BP: 130/90, HR: 87, Nurse: ZE, Ht: 72, BMI:33.82. * Examination: E NT/Respiratory: General Appearance: N AD. E yes: P ERRLA, sclera clear. N ose : nares patent, pale, edematous turbinates. O ral cavity : n o erythema or exudate seen on pharynx. N mini : n o cervical lymphadenopathy. H eart : R RR. Lungs: c lear to auscultation bilaterally. Assessment: * Assessment: 1. A cute rhinitis - J00 (Primary) Plan: * Treatment: Value Reference Range w bc 9.7 3.5 - 10 * l ym 21.8% 15 - 50 * m id 6.0% 2 - 15 * g ran 72.2% 35 - 80 * r bc 4.76 3.5 - 5.5 * h gb 14.0 11.5 - 16.5 * h ct 42.1 35 - 55 * m cv 88.3 75 - 100 * m ch 29.3 25 - 35 * m chc 33.2 31 - 38 * p lat 263 100 - 400 * Anahi Rust 04/01/2025 11 :45:00 AM > Provider reviewed results while patient in office. * Procedure Codes: G 2218 Complex e/[place], [address] CAPILLARY BLOOD DRAW, 78101 CBC WITH AUTO DIFF * Follow Up: v ia phone to report progress * Images: Billing Information: * Visit Code: 61125 Office Visit, Est Pt., Level 3. * Procedure Codes: G2211 Complex e/[place]. [address] CAPILLARY BLOOD DRAW. 27258 CBC WITH AUTO DIFF. * Electronic signature of Jyoti Zheng MD on 10/12/2025 at 02:44 PM EST Sign off status: Pending * Provider: Juve Zheng M.D. Date: 0 04/01/2025 Generated for Cynthia crouch/Alejandra/eTransmitting on: 12/12/2024 02:44 PM EST History and Physical Notes * HPI (History of Present Illness) Category Sub-Category Detail Notes Category Not es ENT/respiratory sore throat ear pain cough greenish yellow sput um production. Pt states he has had drainage and cough for a couple weeks. Pt states the production is worse in the mornings. Pt states he has finished the z raz. He is about 85% better after taking Zithromax Fever post nasal drainage yellow green Examination Category Sub-Category Detail Notes Category Not es ENT/Respiratory Oral cavity : no erythema or exudate s een on pharynx Neck : no cervical lymphade nopathy Heart : RRR Lungs: clear to auscultatio n bilaterally General Appearance: NAD Nose : nares patent, pale, edematous turbinates Eyes: PERRLA, sclera clear
--- OUTSIDE RECORDS SUMMARY | 2025-06-24 04:00 | XMS_ITS ---
Author Organization [facility] Address [address] [place] [id number] Care Team Providers Care Architectural Engineer Name Role Phone Elmira Hernandez Primary Care Provider [phone] Allergies No Known Allergies Results Component Value Reference Range Notes Glycohemoglobin A1c (in hous e) Reviewed date:07/01/2025 01:31:01 PM Interpretation:6.0% Performing Lab: Notes/Report: 6.0% glycohemoglobin 6.0% 5 - 6.5 % P-Comprehensive Metabolic Pa poly (CMP) Reviewed date:07/01/2025 01:31:01 PM Interpretation:Na 134, gluc 109 Performing Lab: Notes/Report: Test performed by [facility], [facility] [address] [place] [address] , [address], [place] [address] Bruno Milner MD, Faculty Criminal Justice CLIA: [id number] Sodium 134 135-145 mmol/L Potassium 4.5 3.5-5.3 mmol/L Chloride 98 97-108 mmol/L CO2 23 20-32 mmol/L Glucose 109 65-99 mg/dL BUN 11 8-23 mg/dL Creatinine 0.81 0.70-1.30 mg/dL Calcium 9.3 8.6-10.4 mg/dL eGFR by Creatinine 95 >59 mL/min/1.73m2 Protein 7.5 6.0-8.3 g/dL Albumin 4.3 3.5-5.3 g/dL Alkaline Phosphatase 76 40-129 IU/L ALT (SGPT) 15 <5-55 IU/L AST (SGOT) 16 <5-46 IU/L Bilirubin, Total 0.3 <0.2-1.2 mg/dL A/G Ratio 1.3 1.1-2.5 P-Lipid Panel Reviewed date:07/01/2025 01:31:01 PM Interpretation:trigs 181 Performing Lab: Notes/Report: Test performed by [facility], [address] , [place] [address] Bruno Milner MD, Faculty Criminal Justice CLIA: [id number] Cholesterol 158 <200 mg/dL Triglycerides 181 <150 mg/dL HDL Cholesterol 46 >39 mg/dL Cholesterol / HDL Ratio 3.43 0.00-4.99 Ratio Non-HDL Cholesterol 112 <130 mg/dL LDL Cholesterol (Calculation) 76 <130 mg/dL LDL Cholesterol Levels* Less than 100 mg/dL Optimal 100 to 129 mg/dL Near Optimal/ Above Optimal 130 to 159 mg/dL Borderline High 160 to 189 mg/dL High 190 mg/dL and above Very High * Categories as recommended by the 2004 ATPIII guidelines LDL/HDL Ratio 1.6 <3.3 Ratio LDL Cholesterol Patient History Test Date: 12/24/2023 LDL Results: 75 Units: mg/dL % Change: - Test Date: 06/23/2024 LDL Results: 70 Units: mg/dL % Change: -6% Test Date: 06/24/2025 LDL Results: 76 Units: mg/dL % Change: +8% P-PSA Reviewed date:07/01/2025 01:31:01 PM Interpretation:Normal Performing Lab: Notes/Report: Test performed by [facility], [address] , [address] , [place] [address] Bruno Milner MD, Faculty Criminal Justice CLIA: [id number] PSA 0.30 <4.00 ng/mL Please note this is an ultrasensitive PSA assay with a lower limit of detection of 0.014 ng/mL. This test is performed by the [employer] ECLIA methodology. Values obtained with different assay methods or kits cannot be directly compared. REASON FOR VISIT 6 month ckup, Needs labs with PSA & diabetic eye exam Medications Medication SIG (Take, Route, Frequency, Duration) Notes Start Date End Date Status Aspirin Adult Low Dose 81 MG 1 tab(s) orally once a day Active ACCUCHECK LANCETS 1 2 TIMES A DAY OR A S DIRECTED 12/31/2022 Active ACCUCHECK GLUCOMETER 1 2 TIMES A DAY OR DIRECTED 12/31/2022 Active ACCUCHECK TEST STRIPS 1 STRIP TEST TWICE A DAY Active Diclofenac Sodium 1 % as directed applie d topically Twice a day prn 08/07/2021 Active metFORMIN HCl 500 MG Take 1 tablet by mo uth twice daily; Duration: 90 Active Allopurinol 100 MG Take 2 tablets by mo uth once daily; Duration: 90 Active Rybelsus 3 MG 1 tab(s) Orally once daily 07/02/2024 Not-Taking Rosuvastatin Calcium 20 MG Take 1 tablet by mouth once daily Active Viagra 100 MG 1 tab(s) orally once a day 01/31/2016 Active Esomeprazole Magnesium 40 MG 1 cap(s) orally once a day Active Cymbalta 60 MG 1 cap(s) orally once a day Active Loratadine 10 MG 1 tablet Orally Once a day; Duration: 30 day(s) 04/01/2025 Active HYDROcodone-Acetaminophe n 10-325 MG 1 tab(s) orally every 6 hours prn Active Fluticasone Propionate 50 MCG/ACT 1 spray in each nostril Nasally once daily 04/01/2025 Active Allopurinol 100 MG 2 tab(s) orally once daily Active metFORMIN HCl 500 MG 1 tab(s) Orally Two times a day Active Tamsulosin HCl 0.4 mg TAKE ONE CAPSULE B Y MOUTH EVERY DAY AT BEDTIME; Duration: 90 Active Lisinopril 10 MG 1 tab(s) orally once a day Active tiZANidine HCl 4 MG 1 tab(s) orally Two times a day Active Lisinopril 10 MG 1 tab(s) orally once a day Active Cymbalta 60 MG 1 cap(s) orally once a day Active Ozempic (0.25 or 0.5 MG/DOSE) 2 MG/3ML 0.25mg Subcutaneous once a week 12/01/2024 Not-Taking Vital Signs Blood pressure systolic 122 mm Hg 06/24/20 25 Blood pressure diastolic 80 mm Hg 025 Heart Rate 80 /min 06/24/2025 Height 72 in 06/24/2025 Weight 253.0 lbs 06/24/2025 BMI 34.31 kg/m2 06/24/2025 Encounters Encounter Location Date Provider Diagnosis [facility] [address] [facility] [address] [place], [place] [id number] 06/24/2025 R Timothy Hernandez Dyslipidemia E78.5 ; Essential hypertension I10 ; Type 2 diabetes mellitus without complication, without long-term current use of insulin E11.9 ; Hyperuricemia E79.0 ; Cervicalgia M54.2 ; Chronic pain syndrome G89.4 ; Depression F32.9 ; GERD (gastroesophageal reflux disease) K21.9 and BPH (benign prostatic hyperplasia) N40.0 Assessments Encounter Date Diagnosis (ICD Code) Assessment Notes Treatment Notes Treatment Clinical Notes Section Notes 06/24/2025 Dyslipidemia (ICD-10 - E78.5) 06/24/2025 Essential hypertension (ICD-10 - I10) 06/24/2025 Type 2 diabetes mellitus without complication, without long-term current use of insulin (ICD-10 - E11.9) Reinforced diet and weight loss 06/24/2025 Hyperuricemia (ICD-10 - E79.0) 06/24/2025 Cervicalgia (ICD-10 - M54.2) 06/24/2025 Chronic pain syndrome (ICD-10 - G89.4) 06/24/2025 Depression (ICD-10 - F32.9) 06/24/2025 GERD (gastroesophageal reflux disease) (ICD-10 - K21.9) 06/24/2025 BPH (benign prostatic hyperplasia) (ICD-10 - N40.0) 06/24/2025 Other Plan Of Treatment Medication Medication Name Sig Start Date Stop Date Notes Rosuvastatin Calcium 20 MG Take 1 tablet by mouth once daily Esomeprazole Magnesium 40 MG 1 cap(s) orally once a day Cymbalta 60 MG 1 cap(s) orally once a day HYDROcodone-Acetaminophen 10 -325 MG 1 tab(s) orally every 6 hours prn Allopurinol 100 MG 2 tab(s) orally once daily metFORMIN HCl 500 MG 1 tab(s) Orally Two times a day Lisinopril 10 MG 1 tab(s) orally once a day tiZANidine HCl 4 MG 1 tab(s) orally Two times a day Treatment Notes Assessment Notes Type 2 diabetes mellitus wit hout complication, without long-term current use of insulin Reinforced diet and weight loss Next Appt Details Follow Up: 6 Months, Reason: Provider Name:Elmira Mckeon, 12/28/2025 09:00:00 AM, [address] [facility], [address] , [place], [place], [phone], Progress Notes * Bryan BRASHERDOB:[birth year] (70 yo M)Acc No.[id number]:06/24/2025 Progress Notes Patient: Kevin CAMERONFAISAL Bryan MACDONALD Provider: Elmira Hernandez M.D. :1955 A ge:70 Y S ex:Male Date:06/24/2025 Address[address], [place], [id number] Subjective: * Chief Complaints: * 1 . 6 month ckup. 2. Needs labs with PSA & diabetic eye exam. * HPI: H PI: Patient is here today for P t is here today for a 6 month check up.. E ndocrinology: He has not been as compliant with his diet this summer due to inactivity related to a broken arm. He just had his cast removed last week. * ROS: D ERMATOLOGY: no R jeanie. n o H brandon. G ASTROENTEROLOGY: no N ausea. n o V omiting. n o D iarrhea.? U ROLOGY: no D ifficulty urinating. n o B lood in urine. * Medical History: D epression, Esophageal Reflux, Hyperlipidemia, Gout, E.D, Diverticulosis by colonoscopy 08/22/2014, Hypertension, Type 2 DM. * Surgical History: R T Knee x 3 , Throat Polyps Removed , nasal surgery , colonoscopy 2004, total right knee replacement 12/04/2012, Colonoscopy/ sigmoid diverticulosis.one polyp/ Dr. Nick 01/2014, C-scope/ Opal/ polyps x 2 01/2019. * Hospitalization/Major Diagno stic Procedure: H ER for rt knee pain 06/2009, [facility]-total right knee replacement 12/04/2012. * Family History: [...] topically Twice a day prn , Taking Lisinopril 10 MG Tablet 1 tab(s) orally once a day , Taking Cymbalta 60 MG Capsule Delayed Release Particles 1 cap(s) orally once a day , Taking Lisinopril [...] MOUTH EVERY DAY AT BEDTIME , Taking Loratadine 10 MG Tablet 1 tablet Orally Once a day , Taking Fluticasone Propionate 50 MCG/ACT Suspension 1 spray in each nostril Nasally once daily , Taking HYDROcodone-Acetaminophen 10-325 MG Tablet 1 tab(s) orally every 6 hours prn , Taking metFORMIN HCl 500 MG Tablet Take 1 tablet by mouth twice daily , Taking Allopurinol 100 MG Tablet Take 2 tablets by mouth once daily , Not-Taking Ozempic (0.25 or 0.5 MG/DOSE) 2 MG/3ML Solution Pen-injector 0.25mg Subcutaneous once a week , Not-Taking Rybelsus 3 MG Tablet 1 tab(s) Orally once daily , Medication List reviewed and reconciled with the patient * Allergies: N .K.D.A. Objective: * Vitals: W t: 253.0, Temp: 98.4, BP: 122/80, HR: 80, O2 Sat: 96% on RA, Nurse: marky, Ht: 72, BMI:34.31. * Examination: C ardiology: General Appearance: p leasant, NAD. H EENT: u nremarkable. C arotid upstroke: n ormal, no bruits. H eart sounds: R RR, normal S1, S2.?Murmur, click , gallop: n one. L ungs: c lear, no rales or wheezes. A bdomen: positive BS, soft, nontender. E xtremities: n o leg edema. Assessment: * Assessment: 1. D yslipidemia - E78.5 (Primary) 2 . E ssential hypertension - I10 ? 3 . T ype 2 diabetes mellitus without complication, without long-term current use of insulin - E11.9 4 . H yperuricemia - E79.0 5 . C ervicalgia - M54.2 6 . C hronic pain syndrome - G89.4 7 . D epression - F32.9 8 . G ERD (gastroesophageal reflux disease) - K21.9 9 .?BPH (benign prostatic hyperplasia) - N40.0 Plan: * Treatment: Value Reference Range C holesterol / HDL Ratio 3.43 0.00-4.99 - Ratio * C holesterol 158 <200 - mg/dL * H DL Cholesterol 46 >39 - mg/dL * L DL Cholesterol (Calculation) 76 <130 - mg/d L * L DL/HDL Ratio 1.6 <3.3 - Ratio * N on-HDL Cholesterol 112 <130 - mg/dL * T riglycerides 181 H <150 - mg/dL * Elmira Hernandez 07/01/2025 01:30:36 PM EDT > reviewed and results discussed with 2.?Essential hypertension? Continue Lisinopril Tablet, 10 MG, 1 tab(s), orally, once a day.?LAB: P-Comprehensive Metabolic Panel (CMP) (Collection Date & Time - 06/24/2025 08:30 AM)?Na 134, gluc 109* Value Reference Range A /G Ratio 1.3 1.1-2.5 - * A lbumin 4.3 3.5-5.3 - g/dL * A lkaline Phosphatase 76 40-129 - IU/L * A LT (SGPT) 15 <5-55 - IU/L * A ST (SGOT) 16 <5-46 - IU/L * B ilirubin, Total 0.3 <0.2-1.2 - mg/dL * B UN 11 8-23 - mg/dL * C alcium 9.3 8.6-10.4 - mg/dL * C hloride 98 97-108 - mmol/L * C O2 23 20-32 - mmol/L * C reatinine 0.81 0.70-1.30 - mg/dL * G lucose 109 H 65-99 - mg/dL * P otassium 4.5 3.5-5.3 - mmol/L * S odium 134 L 135-145 - mmol/L * P rotein 7.5 6.0-8.3 - g/dL * e GFR by Creatinine 95 >59 - mL/min/1.73m2 * Elmira Hernandez 07/01/2025 01:30:36 PM EDT > reviewed and results discussed with 3.?Type 2 diabetes mellitus without complication, without long-term current use of insulin? Continue metFORMIN HCl Tablet, 500 MG, 1 tab(s), Orally, Two times a day.?LAB: Glycohemoglobin A1c (in house) (Collection Date & Time - 06/24/2025)? 6.0%* Value Reference Range g lycohemoglobin 6.0% 5 - 6.5 % * Vickie Centeno 06/24/2025 10:22 :57 AM EDT > Elmira Hernandez 07/01/2025 01:30:36 PM EDT > reviewed and results discussed with Notes: Reinforced diet and weight loss??4.?Hyperuricemia? Continue Allopurinol Tablet, 100 MG, 2 tab(s), orally, once daily.?? 5.?Cervicalgia? Continue tiZANidine HCl Tablet, 4 MG, 1 tab(s), orally, Two times a day.?? 6.?Chronic pain syndrome? Continue HYDROcodone-Acetaminophen Tablet, 10-325 MG, 1 tab(s), orally, every 6 hours prn, Refills 0.??7.?Depression? Continue Cymbalta Capsule Delayed Release Particles, 60 MG, 1 cap(s), orally, once a day.? 8.?GERD (gastroesophageal reflux disease)? Continue Esomeprazole Magnesium Capsule Delayed Release, 40 MG, 1 cap(s), orally, once a day.? 9.?BPH (benign prostatic hyperplasia)?LAB: P-PSA (Collection Date & Time - 06/24/2025 08:30 AM)?Normal* Value Reference Range P SA 0.30 <4.00 - ng/mL * Elmira Hernandez 07/01/2025 01:30:36 PM EDT > reviewed and results discussed with * Procedure Codes: G 2211 Complex e/[place], [address] CAPILLARY BLOOD DRAW, 80008 GLYCATED HEMOGLOBIN TEST, Modifiers: QW , 3044F HG A1C LEVEL LT 7.0%, 1036F TOBACCO NON-USER, G8950 PREHTN/HTN BP DOC INDCD F/U DOC, G8752 MOST RECENT SYSTOLIC BP < 140MM HG, G8754 MOST RECENT DIASTOLIC BP < 90MM HG * Follow Up: 6 Months * Images: Billing Information: * Visit Code: 76226 Office Visit, Est Pt., Level 4. * Procedure Codes: G2211 Complex e/[place]. [address] CAPILLARY BLOOD DRAW. 77923 GLYCATED HEMOGLOBIN TEST. Modifiers: QW 3044F HG A1C LEVEL LT 7.0%. 1036F TOBACCO NON-USER. G8950 PREHTN/HTN BP DOC INDCD F/U DOC. G8752 MOST RECENT SYSTOLIC BP < 140MM HG. G8754 MOST RECENT DIASTOLIC BP < 90MM HG. * Electronic signature of Elmira Hernandez MD on 10/12/2025 at 02:45 PM EST Sign off status: Pending * Provider: Elmira Hernandez M.D. Date: 0 06/24/2025 Generated for Cynthia crouch/Alejandra/eTransmitting on: 12/12/2024 02:45 PM EST History and Physical Notes * HPI (History of Present Illness) Category Sub-Category Detail Notes Category Not es HPI Patient is here today for Pt is here today for a 6 month check up. Examination Category Sub-Category Detail Notes Category Not es Cardiology Lungs: clear, no rales or wheezes HEENT: unremarkable Heart sounds: RRR, normal S1, S2 Abdomen: positive BS, soft, n ontender Carotid upstroke: normal, no bruits Extremities: no leg edema Murmur, click , gallop: none General Appearance: pleasant, NAD
--- OUTSIDE RECORDS SUMMARY | 2025-08-16 06:00 | XMS_ITS ---
Author Organization [facility] Address [address] [place] [id number] Care Team Providers Care Kier Pleater Name Role Phone Elmira Hernandez Primary Care Provider Jaxson Frances Unavailable [phone] Allergies No Known Allergies Results Component Value Reference Range Notes CBC Venipuncture (in house) Reviewed date:08/17/2025 10:22:05 AM Interpretation: Performing Lab: Notes/Report: wbc 8.2 3.5 - 10 lymph 24.9% 15 - 50 mid 5.7% 2 - 15 gran 69.4% 35 - 80 rbc 4.41 3.5 - 5.5 hgb 13.3 11.5 - 16.5 hct 39.2 35 - 55 mcv 88.8 75 - 100 mch 30.1 25 - 35 mchc 33.9 31 - 38 platlet 258 100 - 400 P-Uric Acid Reviewed date:08/18/2025 01:56:15 PM Interpretation:5.1 Performing Lab: Notes/Report: Test performed by [facility] [address] [place] [address] , [address], [place] [address] Bruno Milner MD, Wood Experimental Mechanic CLIA: [id number] Uric Acid 5.1 3.4-8.0 mg/dL X ray : Elbow, right Reviewed date:08/18/2025 01:55:43 PM Interpretation:Negative Performing Lab: Notes/Report: Negative REASON FOR VISIT elbow hurting, can't straighten arm Medications Medication SIG (Take, Route, Frequency, Duration) Notes Start Date End Date Status ACCUCHECK TEST STRIPS 1 STRIP TEST TWICE A DAY Active ACCUCHECK LANCETS 1 2 TIMES A [...] 1 cap(s) orally once a day Active HYDROcodone-Acetaminophe n 10-325 MG 1 tab(s) orally every 6 hours prn 08/09/2025 Active Lisinopril 10 MG 1 tab(s) orally once a day Active Medrol 4 MG as directed orally daily; Duration: 6 days 08/16/2025 Active Rybelsus 3 MG 1 tab(s) Orally once daily 07/02/2024 Not-Taking Celecoxib 100 MG 1 capsule Orally twi ce a day; Duration: 30 days 08/16/2025 Active Diclofenac Sodium 1 % as directed applie d topically Twice a day prn 08/07/2021 Active tiZANidine HCl 4 MG 1 tab(s) orally Two times a day Active Allopurinol 100 MG 2 tab(s) orally once daily Active Esomeprazole Magnesium 40 MG Take 1 capsule by mouth once daily; Duration: 90 Active Ozempic (0.25 or 0.5 MG/DOSE) 2 MG/3ML 0.25mg Subcutaneous once a week 12/01/2024 Not-Taking Loratadine 10 MG 1 tablet Orally Once a day; Duration: 90 days Active Rosuvastatin Calcium 20 MG Take 1 tablet by mouth once daily Active metFORMIN HCl 500 MG Take 1 tablet by [facility] twice daily; Duration: 90 Active Fluticasone Propionate 50 MCG/ACT 1 spray in each nostril Nasally once daily 04/01/2025 Active Lisinopril 10 MG 1 tab(s) orally once a day Active Tamsulosin HCl 0.4 mg TAKE ONE CAPSULE B Y MOUTH EVERY DAY AT BEDTIME; Duration: 90 Active Vital Signs Blood pressure systolic 130 mm Hg 08/16/20 25 Blood pressure diastolic 80 mm Hg 025 Heart Rate 93 /min 08/16/2025 Height 72 in 08/16/2025 Weight 255.6 lbs 08/16/2025 BMI 34.66 kg/m2 08/16/2025 Encounters Encounter Location Date Provider Diagnosis [facility] [address] [facility] 36 [facility] [address] [place] [id number] 08/16/2025 Frances Puri Elbow pain, right M25.521 and Hyperuricemia E79.0 Assessments Encounter Date Diagnosis (ICD Code) Assessment Notes Treatment Notes Treatment Clinical Notes Section Notes 08/16/2025 Elbow pain, right (ICD-10 - M25.521) take meds with food; ice/heat prn; rest the arm 08/16/2025 Hyperuricemia (ICD-10 - E79.0) Plan Of Treatment Medication Medication Name Sig Start Date Stop Date Notes HYDROcodone-Acetaminophen 10-325 MG 1 tab(s) orally every 6 hours prn 08/09/2025 Medrol 4 MG as directed orally d aily; Duration: 6 days 08/16/2025 Celecoxib 100 MG 1 capsule Orally twi ce a day; Duration: 30 days 08/16/2025 Diclofenac Sodium 1 % as directed applie d topically Twice a day prn 08/07/2021 tiZANidine HCl 4 MG 1 tab(s) orally Two times a day Allopurinol 100 MG 2 tab(s) orally once daily Treatment Notes Assessment Notes Elbow pain, right take meds with food; ice/heat prn; rest the arm Next Appt Details Follow Up: prn, Reason: Provider Name:Elmira Mckeon, 12/28/2025 09:00:00 AM, [address] [facility] 36 [facility], [address], [facility] [place], [id number], Progress Notes * DENISE Bryan TOMDOB:[birth year] (70 yo M)Acc No.[id number]:08/16/2025 Progress Notes Patient: Bryan VALDIVIA Provider: CELY Barrientos :1955 A ge:70 Y S ex:Male Date:08/16/2025 Address:[address] [facility] [address], [place], [id number] Pcp:Elmira Hernandez Subjective: * Chief Complaints: * 1 . Elbow hurting, can't straighten arm. * HPI: E lbow/Arm: He reports no falls or injury events. 70 year old male presents with c/o pain P t sts his rt elbow has been hurting since yesterday afternoon, and sts he is unable to stretch it out. Pt sts it just started hurting out of no where. Pt sts he does not recall doing anything to cause the pain. Pt sts it did wake up a few times last night as well. Pt sts this morning when he woke up his trigger finger was hurting as well and very sore. c/o radiation of pain t o hand. c/o swelling.? Denies : redness. D enies : fall. D enies : Fall. * ROS: D ERMATOLOGY: no R jeanie. [...] 2 01/2019. * Hospitalization/Major Diagno stic Procedure: [facility] ER for rt knee pain 06/2009, [facility]-total right knee replacement 12/04/2012. * Family History: [...] Sexually active: yes. * Medications: T aking Lisinopril 10 MG Tablet 1 tab(s) orally once a day , Taking tiZANidine HCl 4 MG Tablet 1 tab(s) orally Two times a day , Taking Allopurinol 100 MG Tablet 2 tab(s) orally once daily , Taking metFORMIN HCl 500 MG Tablet 1 tab(s) Orally Two times a day , Taking Cymbalta 60 MG Capsule Delayed Release Particles 1 cap(s) orally once a day , Taking Viagra 100 MG Tablet 1 tab(s) orally once a day , Taking Aspirin Adult Low Dose 81 MG Tablet Delayed Release 1 tab(s) orally once a day , Taking ACCUCHECK LANCETS LANCET 1 2 TIMES A DAY OR DIRECTED , Taking ACCUCHECK GLUCOMETER 1 2 TIMES A DAY OR DIRECTED , Taking ACCUCHECK TEST STRIPS 1 STRIP TEST TWICE A DAY , Taking Diclofenac Sodium 1 % Gel as directed applied topically Twice a day prn , Taking Lisinopril 10 MG Tablet 1 tab(s) orally once a day , Taking Tamsulosin HCl 0.4 mg Capsule TAKE ONE CAPSULE BY MOUTH EVERY DAY AT BEDTIME , Taking Fluticasone Propionate 50 MCG/ACT Suspension 1 spray in each nostril Nasally once daily , Taking metFORMIN HCl 500 MG Tablet Take 1 tablet by mouth twice daily , Taking Rosuvastatin Calcium 20 MG Tablet Take 1 tablet by mouth once daily , Taking Loratadine 10 MG Tablet 1 tablet Orally Once a day , Taking HYDROcodone-Acetaminophen 10-325 MG Tablet 1 tab(s) orally every 6 hours prn , Taking Esomeprazole Magnesium 40 MG Capsule Delayed Release Take 1 capsule by mouth once daily , Not-Taking Ozempic (0.25 or 0.5 MG/DOSE) 2 MG/3ML Solution Pen-injector 0.25mg Subcutaneous once a week , Not- Taking Rybelsus 3 MG Tablet 1 tab(s) Orally once daily , Medication List reviewed and reconciled with the patient * Allergies: N .K.D.A. Objective: * Vitals: W t: 255.6, Temp: 98.6, BP: 130/80, HR: 93, O2 Sat: 95% on RA, Nurse: marky, Ht: 72, BMI:34.66. * Examination: G eneral Examination: General Appearance: N AD, appears healthy, alert, pleasant, well nourished and hydrated. H eart: R RR. L ungs: C TAB A&P. N eurologic Exam: a lert and oriented. E lbow/Arm: Elbow: r ight, painful, olecranon bursa with effusion, thickened. R rosemary of motion: c an almost completely extend. Assessment: * Assessment: 1. E lbow pain, right - M25.521 (Primary) 2 . H yperuricemia - E79.0 ? Plan: * Treatment: Notes: take meds with food; ice/heat prn; rest the arm??2.?Hyperuricemia? Continue Allopurinol Tablet, 100 MG, 2 tab(s), orally, once daily.?LAB: P-Uric Acid (Collection Date & Time - 08/16/2025 10:35 AM)?5.1* Value Reference Range U destin Acid 5.1 3.4-8.0 - mg/dL * Frances Puri 08/18/2025 01:55:54 PM EDT >I spoke with pt and reported results ?LAB: CBC Venipuncture (in house) (Collection Date & Time - 08/16/2025)* Value Reference Range w bc 8.2 3.5 - 10 * l ymph 24.9% 15 - 50 * m id 5.7% 2 - 15 * g ran 69.4% 35 - 80 * r bc 4.41 3.5 - 5.5 * h gb 13.3 11.5 - 16.5 * h ct 39.2 35 - 55 * m cv 88.8 75 - 100 * m ch 30.1 25 - 35 * m chc 33.9 31 - 38 * p latlet 258 100 - 400 * Heather Story 08/16/2025 1 2:08:14 PM EDT >Frances Puri 08/17/2025 10:21:54 AM EDT >reviewed with pt * Procedure Codes: G 2211 Complex e/[place] [address] CBC WITH AUTO DIFF, 27213 VENIPUNCT, ROUTINE*, 1036F TOBACCO NON-USER, G8783 BP SCR PRFRM RCMDD DEFIND SCR INTVL, G8752 MOST RECENT SYSTOLIC BP < 140MM HG, G8754 MOST RECENT DIASTOLIC BP < 90MM HG, 3075F SYST BP GE 130 - 139MM HG, 3079F DIAST BP 80-89 MM HG * Follow Up: p rn * Images: Billing Information: * Visit Code: 38912 Office Visit, Est Pt., Level 3. * Procedure Codes: G2211 Complex e/[place]. [address] CBC WITH AUTO DIFF. 00866 VENIPUNCT, ROUTINE*. 1036F TOBACCO NON-USER. G8783 BP SCR PRFRM RCMDD DEFIND SCR INTVL. G8752 MOST RECENT SYSTOLIC BP < 140MM HG. G8754 MOST RECENT DIASTOLIC BP < 90MM HG. 3075F SYST BP GE 130 - 139MM HG. 3079F DIAST BP 80-89 MM HG. * Electronic signature of Yolette Puri APRN on 10/12/2025 at 02:46 PM EST Sign off status: Pending * Provider: CELY Barrientos Date: 0 08/16/2025 Generated for Cynthia crouch/Alejandra/Avelinaitting on: 12/12/2024 02:46 PM EST History and Physical Notes * HPI (History of Present Illness) Category Sub-Category Detail Notes Category Not es Elbow/Arm Fall fall redness pain Pt sts his rt elbow has been hurting since yesterday afternoon, and sts he is unable to stretch it out. Pt sts it just started hurting out of no where. Pt sts he does not recall doing anything to cause the pain. Pt sts it did wake up a few times last night as well. Pt sts this morning when he woke up his trigger finger was hurting as well and very sore swelling radiation of pain to hand Examination Category Sub-Category Detail Notes Category Not es General Examination Heart: RRR Lungs: CTAB A&P General Appearance: NAD, appears healthy , alert, pleasant, well nourished and hydrated Neurologic Exam: alert and oriented Elbow/Arm Elbow: right, painful, olecranon bu rsa with effusion, thickened Range of motion: can almost completel y extend
--- NOTE | 2025-10-12 14:41 | XR_ITS ---
FINAL REPORT CLINICAL HISTORY: THUMB INJURY FINDINGS: AP, oblique and lateral views of the left thumb were obtained. There is no prior exam for comparison. There is no acute fracture or dislocation. Degenerative joint disease is most pronounced at the interphalangeal joint. The soft tissues appear normal. IMPRESSION: No acute osseous abnormality of the left thumb. Degenerative changes. Reviewed, Interpreted and Dictated by Marleni Saldana MD Transcribed by Jenae Shen Authenticated and [facility]
--- OUTSIDE RECORDS SUMMARY | 2025-10-12 14:46 | XMS_ITS | Patient Health Record ---
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 Role Phone Elmira Hernandez Primary Care Provider Marce Temo Unavailable [phone] Frances Puri Unavailable [phone] Allergies No Known Allergies Results Component Value [...] - 38 plat 263 100 - 400 Glycohemoglobin A1c (in hous e) Reviewed date:07/01/2025 01:31:01 PM Interpretation:6.0% Performing Lab: Notes/Report: 6.0% glycohemoglobin 6.0% 5 - 6.5 % P-Comprehensive Metabolic Pa poly (CMP) Reviewed date:07/01/2025 01:31:01 PM Interpretation:Na 134, gluc 109 Performing Lab: Notes/Report: Test performed by [email or web address] [address] [place] [address] , [address], [place] [address] Bruno Milner MD, Storage Receipt Poster CLIA: [id number] Sodium 134 135-145 mmol/L Potassium 4.5 3.5-5.3 [...] 181 Performing Lab: Notes/Report: Test performed by [email or web address] [address] [place] [address] , [address], [place] [address] Bruno Milner MD, [employer] Receipt [employer]er CLIA: [id number] Cholesterol 158 <200 mg/dL Triglycerides 181 <150 [...] Interpretation:Normal Performing Lab: Notes/Report: Test performed by [facility], [address] , [place] , [place] [address] Bruno Milner MD, Storage Receipt Poster CLIA: [id number] PSA 0.30 <4.00 ng/mL Please note this is an ultrasensitive PSA assay with a lower limit of detection of 0.014 ng/mL. This test is performed by the [facility] ECLIA methodology. Values obtained with different assay methods or kits cannot be directly compared. CBC Venipuncture (in house) Reviewed date:08/17/2025 10:22:05 [...] - 38 platlet 258 100 - 400 X ray : Elbow, right Reviewed date:08/18/2025 01:55:43 PM Interpretation:Negative Performing Lab: Notes/Report: Negative P-Uric Acid Reviewed date:08/18/2025 01:56:15 PM Interpretation:5.1 Performing Lab: Notes/Report: Test performed by [email or web address] [address] [place] [address] , [address], [place] [address] Bruno Milner MD, [employer] Receipt Poster CLIA: [id number] Uric Acid 5.1 3.4-8.0 mg/dL P-Microalbumin/Creatinine, R andom Urine Sample Reviewed date:12/28/2024 02:15:19 PM Interpretation:Normal Performing Lab: Notes/Report: Test performed by [email or web address] [address] [place] [address] Jorge Jhaveri, [address], [place] [address] Bruno Milner MD, [employer] Receipt [employer]er CLIA: [id number] Albumin/Creatinine Ratio, Urine 10 0-30 ug/m g Microalbumin, Urine, Random 1.2 Creatinine, Urine 115.0 P-Comprehensive Metabolic Pa poly (CMP) Reviewed date:12/28/2024 02:15:19 PM Interpretation:Na 134, cl 96, gluc 110 Performing Lab: Notes/Report: Test performed by [email or web address] [address] [place] [address] , [place] [address] Bruno Milner MD, Storage Receipt Poster CLIA: [id number] Sodium 134 135-145 mmol/L Potassium 4.6 3.5-5.3 [...] 6.0% glycohemoglobin 6.0% 5 - 6.5 % CBC Fingerstick (in house) Reviewed date:12/28/2024 02:15:20 [...] - 38 plat 227 100 - 400 Medications Medication SIG (Take, Route, Frequency, Duration) Notes Start Date End Date Status ACCUCHECK GLUCOMETER 1 2 TIMES A DAY OR DIRECTED 12/31/2022 Active Viagra 100 MG 1 tab(s) orally once a day 01/31/2016 Active Diclofenac Sodium 1 % as directed applie d topically Twice a day prn 08/07/2021 Active Cymbalta 60 MG 1 cap(s) orally once a day Active ACCUCHECK LANCETS 1 2 TIMES A DAY OR A S DIRECTED 12/31/2022 Active Tamsulosin HCl 0.4 mg 1 capsule at bedti me orally once a day; Duration: 90 days Active Aspirin Adult Low Dose 81 MG 1 tab(s) orally once a day Active tiZANidine HCl 4 MG Take 1 tablet by marcie twice daily; Duration: 90 Active Loratadine 10 MG 1 tablet Orally Once a day; Duration: 90 days Active Ozempic (0.25 or 0.5 MG/DOSE) 2 MG/3ML 0.25mg Subcutaneous once a week 12/01/2024 Not-Taking Fluticasone Propionate 50 MCG/ACT 1 spray in each nostril Nasally once daily 04/01/2025 Active HYDROcodone-Acetaminophe n 10-325 MG 1 tab(s) orally every 6 hours prn 10/11/2025 Active Lisinopril 10 MG 1 tab(s) orally once a day Active Esomeprazole Magnesium 40 MG Take 1 capsule by mouth once daily; Duration: 90 Active Rybelsus 3 MG 1 tab(s) Orally once daily 07/02/2024 Not-Taking metFORMIN HCl 500 MG Take 1 tablet by [facility] twice daily; Duration: 90 Active Lisinopril 10 MG 1 tab(s) orally once a day Active Rosuvastatin Calcium 10 MG Take 1 tablet by mouth once daily; Duration: 90 Active ACCUCHECK TEST STRIPS 1 STRIP TEST TWICE A DAY Active Allopurinol 100 MG Take 2 tablets by [facility] once daily; Duration: 90 Active Immunizations Vaccine Route Administration Date Status Comme nts Tetanus Tdap-Adacel (over 7yrs) IM Intramuscular 01/10/2018 Administered Shingrix Unknown 12/10/2019 Administered Prevnar (PCV13) IM Intramuscular 12/26/2021 Administered PNEUMOVAX 23 VACCINE IM Intramuscular 01/10/2018 Administe red Hepatitis A (adult) Unknown 12/10/2019 Administered Fluzone Quad-Medicare (6months&older) IM Intramuscular 10/23/2017 Administered Fluzone Quad (6months&older) IM Intramuscular 09/23/2018 Administered Fluzone Quad (6months&older) IM Intramuscular 09/06/2020 Administered Fluzone High Dose (65yr and older) Unknown 08/07/2021 Administered COVID 19 Moderna Unknown 01/18/2021 Administered COVID 19 Moderna Unknown 02/15/2021 Administered COVID 19 Moderna Unknown 10/17/2021 Administered Problems Problem Type SNOMED Code ICD Code Onset Dates Problem Status W/U Status Risk Notes Problem Gastroesophageal reflux disease (042742381) GERD (gastroesophageal reflux disease) (K21.9) Active confirmed Problem Essential hypertension (78159846) Essential (primary) hypertension (I10) Active confirmed Problem Essential hypertension (86614912) Essential hypertension (I10) Active confirmed Problem Screening for malignant neoplasm of prostate (840543998) Prostate cancer screening (Z12.5) Active confirmed Problem Hyperuricemia (95828968) Hyperuricemia (E79.0) Active confirmed Problem Cervicalgia (75223587) Cervicalgia (M54.2) Active confirmed Problem Male erectile disorder (707603677) Male erectile disorder (F52.21) Active confirmed Problem Benign prostatic hyperplasia (737700934) BPH (benign prostatic hyperplasia) (N40.0) Active confirmed Problem Type 2 diabetes mellitus with other specified complication (E11.69) Active confirmed Problem Hyperlipidemia (70044933) Hyperlipidemia, unspecified (E78.5) Active confirmed Problem Chronic pain syndrome (662783521) Chronic pain syndrome (G89.4) Active confirmed Problem Depression (813638920) Depression (F32.9) Active confirmed Problem Obese class II (148610403796915) BMI 36.0-36.9,adult (Z68.36) Active confirmed Problem Primary osteoarthritis (444570166) Primary osteoarthritis (M19.91) Active confirmed Problem Body mass index 30.00 to 34.99 (037951476216878) BMI 34.0-34.9,adult (Z68.34) Active confirmed Problem Dyslipidemia (324432079) Dyslipidemia (E78.5) Active confirmed Problem Type II diabetes mellitus without complication (834478417) Type 2 diabetes mellitus without complication, without long-term current use of insulin (E11.9) Active confirmed Vital Signs Heart Rate 88 /min 10/12/2025 Blood pressure diastolic 78 mm Hg 10/12/2025 Height 72 in 10/12/2025 Blood pressure systolic 128 mm Hg 10/12/2025 Weight 256 lbs 10/12/2025 BMI 34.72 kg/m2 10/12/2025 Encounters Encounter Location Date Provider Diagnosis [facility] [address] [facility] [address] [place] [id number] 10/27/2024 R Timothy Hernandez Olecranon bursitis o f left elbow M70.22 ; Cervicalgia M54.2 and Vasovagal syncope R55 [facility] [address] [facility] [address] [place] [id number] 12/10/2024 R Timothy Hernandez Olecranon bursitis o f left elbow M70.22 [facility] [address] [place] [id number] 12/24/2024 R Timothy Hernandez Adult general medica [...] bursitis, left M70.22 and BMI 34.0-34.9,adult Z68.34 [facility] [address] [address] [place] [id number] 03/17/2025 Temo [place] Acute URI J06.9 ; Ty pe 2 diabetes mellitus with other specified complication E11.69 and BMI 34.0-34.9,adult Z68.34 [facility] [address] [facility] [address] [place] [id number] 04/01/2025 Temo [place] Acute rhinitis J00 [facility] [address] [address] [place], [place] [id number] 06/24/2025 R Timothy Hernandez Dyslipidemia E78.5 ; Essential hypertension I10 ; Type 2 diabetes mellitus without complication, without long-term current use of insulin E11.9 ; Hyperuricemia E79.0 ; Cervicalgia M54.2 ; Chronic pain syndrome G89.4 ; Depression F32.9 ; GERD (gastroesophageal reflux disease) K21.9 and BPH (benign prostatic hyperplasia) N40.0 [facility] [address] [place], [place] [id number] 08/16/2025 Frances Puri Elbow pain, right M25.521 and Hyperuricemia E79.0 [facility] [address] [place], [place] [id number] 10/12/2025 R Timothy David Thumb pain, left M79.645 [facility] [address] [place], [place] [id number] 10/12/2025 R Timothy David [facility] [address] [place], [place] [id number] 11/02/2024 R Timothy David Chronic pain syndrom e G89.4 [facility] [address] [place], [place] [id number] 12/01/2024 R Timothy David Type 2 diabetes mellitus without complication, without long-term current use of insulin E11.9 [facility] [address] [place], [place] [id number] 12/03/2024 R Timothy David Chronic pain syndrom e G89.4 [facility] [address] [place], [place] [id number] 12/28/2024 R Timothy David [facility] [address] [place], [place] [id number] 01/04/2025 Temo [place] Chronic pain syndrom e G89.4 [facility] [address] [place], [place] [id number] 02/01/2025 R Timothy David Chronic pain syndrom e G89.4 [facility] [address] [place], [place] [id number] 03/08/2025 R Timothy David Chronic pain syndrom e G89.4 [facility] [address] [place], [place] [id number] 04/07/2025 R Timothy David Chronic pain syndrom e G89.4 [facility] [address] [place], [place] [id number] 05/07/2025 R Timothy David Chronic pain syndrom e G89.4 [facility] [address] [facility] [address] [place], [place] [id number] 06/07/2025 [place]o [place] Chronic pain syndrom e G89.4 [facility] [address] [facility] [address] [place], [place] [id number] 07/08/2025 R Timothy David Chronic pain syndrom e G89.4 [facility] [address] [facility] [address] [place], [place] [id number] 08/09/2025 R Timothy David Chronic pain syndrom e G89.4 [facility] [address] [facility] [address] [place], [place] [id number] 08/10/2025 R Timothy David [facility] [address] [facility] [address] [place], [place] [id number] 08/30/2025 R Timothy David [facility] [address] [facility] [address] [place], [place] [id number] 09/10/2025 R Timothy David Elbow pain, right M25.521 [facility] [address] [facility] [address] [place], [place] [id number] 09/13/2025 R Timothy David [facility] [address] [facility] [address] [place], [place] [id number] 10/11/2025 R Timothy David Elbow pain, right M25.521 Assessments Encounter Date Diagnosis (ICD Code) Assessment Notes Treatment Notes Treatment Clinical Notes Section Notes 10/27/2024 Cervicalgia (ICD-10 - M54.2) 10/27/2024 Olecranon [...] for the next 5 to 7 days. 12/01/2024 Type 2 diabetes mellitus without complication, [...] and apply ice 3-4 times per day. 01/04/2025 Chronic pain syndrome (ICD-10 - G89.4) [...] G89.4) 06/24/2025 Essential hypertension (ICD-10 - I10) 07/08/2025 Chronic pain syndrome (ICD-10 - G89.4) 08/09/2025 Chronic pain syndrome (ICD-10 - G89.4) 08/16/2025 Hyperuricemia (ICD-10 - E79.0) 08/16/2025 Elbow pain, right (ICD-10 - M25.521) take meds with food; ice/heat prn; rest the arm 09/10/2025 Elbow pain, right (ICD-10 - M25.521) 10/11/2025 Elbow pain, right (ICD-10 - M25.521) 10/12/2025 Thumb pain, left (ICD-10 - M79.645) With remote history of injury to the hand, will obtain x-ray to rule out occult fracture. He is currently taking diclofenac. Recommend OTC Voltaren gel pending results of x-ray 12/24/2024 Dyslipidemia (ICD-10 - E78.5) 12/24/2024 Adult general medical examination (ICD-10 - Z00.00) Patient instructed to return to office Annually for Annual Wellness Visits to include annual screenings of Pain assessment, Functional Ability assessment, Cognitive Ability assessment, Fall Risk assessment, Depression screening and Bladder control screening. 06/24/2025 Dyslipidemia (ICD-10 - E78.5) 11/02/2024 Chronic pain syndrome (ICD-10 - G89.4) 06/24/2025 Type 2 diabetes mellitus without complication, [...] His was called to drive him home. 06/24/2025 Hyperuricemia (ICD-10 - E79.0) 12/24/2024 Type 2 diabetes mellitus without complication, without long-term current use of insulin (ICD-10 - E11.9) Reinforced diet and weight loss 06/24/2025 Cervicalgia (ICD-10 - M54.2) 12/24/2024 Hyperuricemia [...] Test Name Order Date X ray : Thumb, left 10/12/2025 Next Appt Details Provider Name:Elmira Mckeon, 12/28/2025 09:00:00 AM, [address], [place], [place], [id number], Insurance Providers Payer Name Payer Address Payer Phone Subscriber Number Group Number Insured Name Patient Relationship to Insured Coverage Start Date Coverage End Date MEDICARE PART B [address] [address] [place] [address] [id number] Bryan Brasher Self - patient is the insured [facility] [employer] [address] [place] [address] [phone] [id number] Bryan Brasher Self - patient is the insured Medications [...] 2 01/2019 Hospitalization History Reason Date(Month/Year) [facility]-total right knee replace ment 12/04/2012 [facility] ER for rt knee pain 06/2009
== END 2025-10-12 23:59 | disposition home or self-care (01) ==
LOC: RAD 14:39
PROVIDERS: PCP Family Medicine; Visit Provider Family Medicine
DX: M19.042 Primary osteoarthritis, left hand (principal)
CPT/HCPCS: 73140

== ENCOUNTER 2025-11-17 08:00 | Outpatient (RCR) | payer MEDICARE, SELFPAY ==
--- NOTE | 2025-10-25 10:52 | [facility].RHREAS ---
Rehab Reassessment Rehab OP Re-assessment Start: 10/20/25 08:53 Freq: Status: Active Protocol: Document 10/25/25 08:37 SABINE (Rec: 10/25/25 10:51 SABINE [id number]) E-signed By Vinnie Remy PT Neck Disability Index Neck Disability Index Section 1: Pain The pain is moderate at the moment Intensity Section 2: Personal I can look after myself normally without causing extra Care (washing, pain dressing, etc.) Section 3: Lifting I can lift heavy weights without extra pain Section 4: Reading I can read as much as I want to with no pain in my neck Section 5: Headaches I have slight headaches, which come infrequently Section 6: I can concentrate fully when I want to with no Concentration difficulty Section 7: Work I can only do my usual work, but no more Section 8: Driving I can drive my car as long as I want with slight pain in my neck Section 9: Sleeping My sleep is slightly disturbed (less than 1 hr sleepless) Section 10: I am able to engage in all my recreation activities Recreation with some pain in NDI Score 7 Rehab Re-assessment Subjective Subjective Pt reports that he is approximately 40% improved. Pt reports that his motion feels much improved but he feels very sore. Pt reports that he is able to tilt his head backwards much better and is able to take a drink . Pt reports that his rotation has also improved, reporting that it is easier to look side to side when driving. Pt reports that his average pain over the past 48 hours is 6/10. Pt reports that he is very happy with the improvement in his neck motion and would like to continue to improve it. Objective Objective Notes NDI: CROM: - Extension: 28 - Flexion: 30 - Lateral Flexion: 20 b/l - Rot 30 b/l TTP: 2/4 to b/l UT and Lower cervical Paraspinals MMT: B rhomboid: 4/5 Assessment Progress Assessment Progressing as Expected Assessment Notes The pt presents for his first reassessment this date, after attending 3 treatment sessions since his initial evaluation. Pt's treatment sessions have consisted of cervical mobility training, scapulothoracic strength/ motor control training and pain modulation. Pt has responded well thus far, demonstrating improvements in cervical ROM, rhomboid strength, pain and NDI score. Pt would continue to benefit from skilled PT at this time . PT Patient Goals PT Short Term In 4 weeks: Patient Goals 1. Patient will report a 48 hour average pain of 5/10 on the numeric pain rating scale to demonstrate improvement in quality of life and increased functional capacity. 2. Patient will improve rhomboid strength upon manual muscle testing to 4/5 facilitate increased spinal stabilization, cervical support and improved functional capabilities. MET 3. Patient will demonstrate a reduction in trigger point sensitivity to Grade 2 with manual palpation to improve comfort during activity and soft tissue mobility. MET 4. Patient will improve cervical ROM by 5 degrees without pain in all planes to demonstrate improved movement patterns with functional mobility and ADLs. MET 5. Pt will demonstrate HEP compliance by completing prescribed HEP 4-5x/week. MET 6. Pt will improve NDI score to 5 to demonstrate improvement functional capabilities and improved QOL. PT Fpc Patient In 8 weeks: Goals 1. Patient will report a 48 hour average pain of 2-3/10 on the numeric pain rating scale to demonstrate improvement in quality of life and increased functional capacity. 2. Patient will improve rhomboid strength upon manual muscle testing to 4+/5 facilitate increased spinal stabilization and improved functional capabilities. 3. Patient will demonstrate a reduction in trigger point sensitivity to Grade 0-1 with manual palpation to improve comfort during activity and soft tissue mobility. 4. Patient will improve cervical ROM by 10-15 degrees, without pain, in all planes to demonstrate improved movement patterns with functional mobility and ADLs. 5. Pt will improve NDI score to 4 to demonstrate improvement functional capabilities and improved QOL. Plan Plan Continue as per initial POC, utilizing the following methods and activities. Frequency of Therapy 2/week Duration of Therapy 4 weeks Therapeutic Exercise Yes Including Home Exercise Program Manual Therapy Yes Techniques Neuromuscular Re- Yes education Therapeutic Yes Activities to Return to Previous Functional/Work Level Gait Training Yes ADL/Self Care Yes Education Thermal Modalities Yes Electrical Yes Stimulation Massage Yes Manual Lymphatic Yes Drainage Eval/Re-Eval Yes Time and Billing Re-Eval Time 10 Re-Eval Billing 0 Units Charge for PT No reassessment? PHYSICIAN CERTIFICATION: I certify the specified therapy services for Bryan Brasher SR are required, authorized, and reviewed every 30 days.
== END 2025-11-17 23:59 | disposition home or self-care (01) ==
LOC: PT 08:00
PROVIDERS: PCP Family Medicine; Visit Provider Family Medicine
DX: M54.2 Cervicalgia (principal)
CPT/HCPCS: 97010; 97110; 97530